=== PATIENT | male | born 1935 ===

== ENCOUNTER 2024-03-03 09:12 | Outpatient (CLI) | payer MEDICARE, SELFPAY | END 2024-03-03 09:13 | disposition home or self-care (01) | LOC: AMB 03-10 13:54 | PROVIDERS: Visit Provider Student in an Organized Health Care Education/Training Program | DX: M79.604 Pain in right leg (principal); R20.0 Anesthesia of skin | CPT/HCPCS: A0425; A0427 ==

== ENCOUNTER 2024-03-06 02:54 | Outpatient (CLI) | payer MEDICARE, SELFPAY | END 2024-03-06 02:55 | disposition home or self-care (01) | LOC: AMB 03-16 04:06 | PROVIDERS: Visit Provider Student in an Organized Health Care Education/Training Program | DX: M54.9 Dorsalgia, unspecified (principal) | CPT/HCPCS: A0425; A0427 ==

== ENCOUNTER 2025-02-27 12:21 | Emergency (ER) | payer MEDICARE, SELFPAY ==
--- OUTSIDE RECORDS SUMMARY | 2024-05-26 02:45 | XMS_ITS ---
Author Organization [employer] [facility] Address [address] [place] [address] Care Team Providers Care Hemstitching Machine Operator Name Role Phone Tiffanie Talbot Unavailable [phone] Results Component Value Reference Range Notes PET CT W/HEARTSEE Reviewed date: Interpretation: Performing Lab: Notes/Report: PET CT W/HEARTSEE 1 [id number] W/HEARTSEE [id number] CT W/HEARTSEE 3 [id number] REASON FOR VISIT PET CT Encounters Encounter Location Date [facility] [address] [facility] [address] [place] [address] 05/26/2024 Tiffanie Talbot Acute systolic (congestive) heart failure I50.21 Assessments Encounter Date Diagnosis (ICD Code) Assessment Notes Treatment Notes Treatment Clinical Notes Section Notes 05/26/2024 Acute systolic (congestive) hear t failure (ICD-10 - I50.21) Plan Of Treatment No Information Progress Notes * GENOVEVAKwame KEBEDE SDOB:[birth year] (89 yo M)Acc No.[id number]:05/26/2024 Patient:Kwame Krueger :?Tiffanie Talbot MDDOB:1935???Age:88 Y ???Sex:MaleDate:05/26/2024Phone:[phone]:[address], [address], [facility] Subjective: * Chief Complaints: * P ET CT Assessment: * Assessment: 1.?Acute systolic (congestive) heart failure - I50.21??? Plan: * Labs: * L ab: PET CT W/HEARTSEE (Collection Date & Time - 05/26/2024) ?ValueReference Range?PET CT W/HEARTSEE 1 [id number] * P ET CT W/HEARTSEE 2 [id number] * P ET CT W/HEARTSEE 3 [id number] * Procedure Codes: 9 3015 CARDIOVASCULAR STRESS [id number] RB82 [id number] INJECTION REGADENOSON 0.1 FV43654 MYOCRD IMG PET RST&STRS CT -PJ55006 AQMBF PET REST & RX STRESS -TC Billing Information: * Procedure Codes: 56522 CARDIOVASCULAR STRESS TEST. A9555 RB82 RUBIDIUM. J2785 INJECTION REGADENOSON 0.1 MG. 21679 MYOCRD IMG PET RST&STRS CT -[place]. 97311 AQMBF PET REST & RX STRESS -TC. * Electronic signature of Tiffanie Talbot on 02/28/2025 at 02:20 AM CSTSign off status: Pending * Provider: Joanie Talbot MD Date: 0 05/26/2024 Generated for Printing/Faxing/eTransmitting on:?02/28/2025 02:20 AM APPLIANCE TECHNICIAN
--- OUTSIDE RECORDS SUMMARY | 2024-05-26 02:45 | XMS_ITS ---
Author Organization [employer] [facility] Address [address] [facility] [address] [place] [address] Care Team Providers Care Revenue Settlements Administrator Name Role Phone Tiffanie Talbot Unavailable Results Component Value Reference Range Notes PET CT W/HEARTSEE Reviewed date: Interpretation: Performing Lab: Notes/Report: PET CT W/HEARTSEE 1 [id number] W/HEARTSEE [id number] CT W/HEARTSEE 3 [id number] REASON FOR VISIT PET CT Encounters Encounter Location Date Provider [facility] [address] [place] [address] 05/26/2024 Tiffanie Talbot Acute systolic (congestive) heart failure I50.21 Assessments Encounter Date Diagnosis (ICD Code) Assessment Notes Treatment Notes Treatment Clinical Notes Section Notes 05/26/2024 Acute systolic (congestive) hear t failure (ICD-10 - I50.21) Plan Of Treatment No Information Progress Notes * GENOVEVAKwame KEBEDE SDOB:[birth year] (89 yo M)Acc No.[id number]:05/26/2024 Patient:Kwame Krueger :?Tiffanie Talbot MDDOB:1935???Age:88 Y ???Sex:MaleDate:05/26/2024Phone:[phone]:[address], [facility] Subjective: * Chief Complaints: * P ET CT Assessment: * Assessment: 1.?Acute systolic (congestive) heart failure - I50.21??? Plan: * Labs: * L ab: PET CT W/HEARTSEE (Collection Date & Time - 05/26/2024) ?ValueReference Range?PET CT W/HEARTSEE 1 [id number] * P ET CT W/HEARTSEE 2 [id number] * P ET CT W/HEARTSEE 3 [id number] * Procedure Codes: 9 3015 CARDIOVASCULAR STRESS [id number] RB82 [id number] INJECTION REGADENOSON 0.1 WA26196 MYOCRD IMG PET RST&STRS CT -JP70019 AQMBF PET REST & RX STRESS -TC Billing Information: * Procedure Codes: 42335 CARDIOVASCULAR STRESS TEST. A9555 RB82 RUBIDIUM. J2785 INJECTION REGADENOSON 0.1 MG. 95955 MYOCRD IMG PET RST&STRS CT -[place]. [address] AQMBF PET REST & RX STRESS -TC. * Electronic signature of Tiffanie Talbot on 02/27/2025 at 12:25 PM CSTSign off status: Pending * Provider: Joanie Talbot MD Date: 0 05/26/2024 Generated for Printing/Faxing/eTransmitting on:?02/27/2025 12:25 PM REPACK ROOM WORKER
--- OUTSIDE RECORDS SUMMARY | 2024-05-27 03:00 | XMS_ITS ---
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 ; Heart failure, unspecified I50.9 ; Acute kidney failure, unspecified N17.9 and Chronic atrial fibrillation, unspecified I48.20 Assessments Encounter Date Diagnosis (ICD Code) Assessment Notes Treatment Notes Treatment Clinical Notes Section Notes 05/27/2024 Hypertensive heart disease with heart failure (ICD-10 - I11.0) 05/27/2024Heart failure, unspecified (ICD-10 - I50.9)5Acute kidney failure, unspecified (ICD-10 - N17.9)5Chronic atrial fibrillation, unspecified (ICD-10 - I48.20) Plan Of Treatment No Information Progress Notes * Kwame CARRILLO SDOB:[birth year] (89 yo M)Acc No.[id number]:05/27/2024 Patient:?Kwame Carrillo :?Provider MigrationDOB:1935???Age:88 Y ???Sex:MaleDate:05/27/2024Phone:[phone]:[address], [facility] Subjective: * Chief Complaints: * E MR-Galindo Assessment: * Assessment: 1.?Hypertensive heart disease with heart failure - I11.0???2.?Heart failure, unspecified - I50.9???3.?Acute kidney failure, unspecified - N17.9???4.?Chronic atrial fibrillation, unspecified - I48.20??? * Electronic signature of Provider Migration on 02/27/2025 at 12:25 PM CSTSign off status: Pending * Provider: May araujo Migration Date: 0 05/27/2024 Generated for Printing/Faxing/eTransmitting on:?02/27/2025 12:25 PM SHOT BAGGER
--- OUTSIDE RECORDS SUMMARY | 2024-05-27 03:00 | XMS_ITS ---
Author Organization [employer] [facility] Address [address] [facility] [address] [place] [address] Care Team Providers Care Insulation Foreman Name Role Phone Migration, Provider Unavailable Unavailable [...] Kwame CARRILLO SDOB:[birth year] (89 yo M)Acc No.[id number]:05/27/2024 Patient:?Kwame Carirllo :?Provider MigrationDOB:1935???Age:88 Y ???Sex:MaleDate:05/27/2024Phone:[phone]:[address], [facility] Subjective: * Chief Complaints: * E MR-Galindo Assessment: * Assessment: 1.?Hypertensive heart disease with heart failure - I11.0???2.?Heart failure, unspecified - I50.9???3.?Acute kidney failure, unspecified - N17.9???4.?Chronic atrial fibrillation, unspecified - I48.20??? * Electronic signature of Provider Migration on 02/28/2025 at 02:20 AM CSTSign off status: Pending * Provider: May araujo Migration Date: 0 05/27/2024 Generated for Printing/Faxing/eTransmitting on:?02/28/2025 02:20 AM ADMINISTRATIVE LIAISON
--- OUTSIDE RECORDS SUMMARY | 2024-06-03 02:56 | XMS_ITS ---
Author Organization [employer] [facility] Address [address] [facility] [address] [place] [address] Care Team Providers Care Baseball Scout Name Role Phone Migration, Provider Unavailable Unavailable REASON FOR VISIT TelEnc Encounters Encounter Location Date Provider Diagnosis Migrated_Facility 0 0 06/03/2024 Provider Migration Plan Of Treatment No Information Progress Notes * SILVAMIGUELKwame KEBEDE SDOB:[birth year] (89 yo M)Acc No.[id number]:06/03/2024 Patient:?Kwame OCAMPO :1935???Age:88 Y???Sex:MalePhone:[phone] Address:[address], [facility] [address] Subjective: * Chief Complaints: * T elEnc * * Date:?
--- OUTSIDE RECORDS SUMMARY | 2024-06-03 02:56 | XMS_ITS ---
Author Organization [employer] [facility] Address [address] [facility] [address] [place] [address] Care Team Providers Care Supervisor Melt House Name Role Phone Migration, Provider Unavailable Unavailable REASON FOR VISIT TelEnc Encounters Encounter Location Date Provider Diagnosis Migrated_Facility 0 0 06/03/2024 Provider Migration Plan Of Treatment No Information Progress Notes * SILVAMIGUELKwame KEBEDE SDOB:[birth year] (89 yo M)Acc No.[id number]:06/03/2024 Patient:?Kwame OCAMPO :1935???Age:88 Y???Sex:MalePhone:[phone] Address:[address], [facility] [address] Subjective: * Chief Complaints: * T elEnc * * Date:?
--- OUTSIDE RECORDS SUMMARY | 2024-06-03 04:42 | XMS_ITS ---
Author Organization [employer] [facility] Address [address] [facility] [address] [place] [address] Care Team Providers Care Wireless Team Member Name Role Phone Migration, Provider Unavailable Unavailable REASON FOR VISIT TelEnc Encounters Encounter Location Date Provider Diagnosis Migrated_Facility 0 0 06/03/2024 Provider Migration Plan Of Treatment No Information Progress Notes * SILVAMIGUELKwame KEBEDE SDOB:[birth year] (89 yo M)Acc No.[id number]:06/03/2024 Patient:?Kwame OCAMPO :1935???Age:88 Y???Sex:MalePhone:[phone] Address:[address], [facility] [address] Subjective: * Chief Complaints: * T elEnc * * Date:?
--- OUTSIDE RECORDS SUMMARY | 2024-06-03 04:42 | XMS_ITS ---
Author Organization [employer] [facility] Address [address] [facility] [address] [place] [address] Care Team Providers Care Laborer Marine Terminal Name Role Phone Migration, Provider Unavailable Unavailable REASON FOR VISIT TelEnc Encounters Encounter Location Date Provider Diagnosis Migrated_Facility 0 0 06/03/2024 Provider Migration Plan Of Treatment No Information Progress Notes * SILVAMIGUELKwame KEBEDE SDOB:[birth year] (89 yo M)Acc No.[id number]:06/03/2024 Patient:?Kwame OCAMPO :1935???Age:88 Y???Sex:MalePhone:[phone] Address:[address], [facility] [address] Subjective: * Chief Complaints: * T elEnc * * Date:?
--- OUTSIDE RECORDS SUMMARY | 2024-06-04 03:10 | XMS_ITS ---
Author Organization [employer] [facility] Address [address] [facility] [address] [place] [address] Care Team Providers Care Compass Operator Name Role Phone Sami Rodríguez Unavailable [phone] REASON FOR VISIT Established Patient Encounters Encounter Location Date Provider [facility] [address] [place] [address] 06/04/2024 Sami Rodríguez Plan Of Treatment No Information Progress Notes * Kwame OCAMPO SDOB:[birth year] (89 yo M)Acc No.[id number]:06/04/2024 Patient:?Kwame Ocampo :?Sami Anne, MDDOB:1935???Age:88 Y???Sex:MaleDate:06/04/2024Phone:[phone]:[address], [facility] Subjective: * Chief Complaints: * E stablished Patient * Electronic signature of Sami Rodríguez on 02/28/2025 at 02:18 AM CSTSign off status: Pending * Provider: Danica Rodríguez MD Date: 0 06/04/2024 Generated for Printing/Faxing/eTransmitting on:?02/28/2025 02:18 AM INSTRUCTOR BRIDGE
--- OUTSIDE RECORDS SUMMARY | 2024-06-04 03:10 | XMS_ITS ---
Author Organization [employer] [facility] Address [address] [facility] [address] [place] [address] Care Team Providers Care Supervisor Melt House Name Role Phone Sami Rodríguez Unavailable REASON FOR VISIT Established Patient Encounters Encounter [facility] Date [facility] [address] [facility] [address] [place] [address] 06/04/2024 Sami Rodríguez Plan Of Treatment No Information Progress Notes * Kwame OCAMPO SDOB:[birth year] (89 yo M)Acc No.[id number]:06/04/2024 Patient:?Kwame Ocampo :?Sami Anne, MDDOB:1935???Age:88 Y???Sex:MaleDate:06/04/2024Phone:[phone]:[address], [facility] Subjective: * Chief Complaints: * E stablished Patient * Electronic signature of Sami Rodríguez on 02/27/2025 at 12:23 PM CSTSign off status: Pending * Provider: Danica Rodríguez MD Date: 0 06/04/2024 Generated for Printing/Faxing/eTransmitting on:?02/27/2025 12:23 PM PELLET PREPARATION OPERATOR
--- OUTSIDE RECORDS SUMMARY | 2024-06-04 04:45 | XMS_ITS ---
Author Organization [employer] [facility] Address [address] [facility] [address] [place] [address] Care Team Providers Care Electrical Appliance Repairer Name Role Phone Michelle Fernández [phone] REASON FOR VISIT Established Patient Encounters Encounter Location Date Provider Diagnosis [facility]- [address] [place] [address] 06/04/2024 Michelle Fernández Plan Of Treatment No Information Progress Notes * Kwame OCAMPO SDOB:[birth year] (89 yo M)Acc No.[id number]:06/04/2024 Patient:Kwame Krueger :?Michelle Fernández NPDOB:1935???Age:88 Y ???Sex:MaleDate:06/04/2024Phone:[phone]:[address], [facility] Subjective: * Chief Complaints: * E stablished Patient * Electronic signature of Michelle Fernández on 02/28/2025 at 02:20 AM CSTSign off status: Pending * Provider: Mata Fernández NP Date: 0 06/04/2024 Generated for Printing/Faxing/eTransmitting on:?02/28/2025 02:20 AM INFORMATION TECHNOLOGY TECHNICIAN
--- OUTSIDE RECORDS SUMMARY | 2024-06-04 04:45 | XMS_ITS ---
Author Organization [employer] [facility] Address [address] [facility] [address] [place] [address] Care Team Providers Care Char Filter Tank Tender Head Name Role Phone Michelle Fernández [phone] REASON FOR VISIT Established Patient Encounters Encounter Location Date Provider Diagnosis [facility]- [address] [place] [address] 06/04/2024 Michelle Fernández Plan Of Treatment No Information Progress Notes * Kwame OCAMPO SDOB:[birth year] (89 yo M)Acc No.[id number]:06/04/2024 Patient:Kwame Krueger :?Michelle Fernández NPDOB:1935???Age:88 Y ???Sex:MaleDate:06/04/2024Phone:[phone]:[address], [facility] Subjective: * Chief Complaints: * E stablished Patient * Electronic signature of Michelle Fernández on 02/27/2025 at 12:25 PM CSTSign off status: Pending * Provider: Mata Fernández NP Date: 0 06/04/2024 Generated for Printing/Faxing/eTransmitting on:?02/27/2025 12:25 PM PIPE MACHINE OPERATOR
--- OUTSIDE RECORDS SUMMARY | 2024-06-04 04:45 | XMS_ITS ---
Author Organization [employer] [facility] Address [address] [facility] [address] [place] [address] Care Team Providers Care Electric Wirer Name Role Phone Michelle Fernández [phone] Results Component Value Reference Range Notes ELECTROCARDIOGRAM/ECG Reviewed date: Interpretation: Performing Lab: Notes/Report: ELECTROCARDIOGRAM/ECG 1 [id number] Dipyrid PET/CT Reviewed date:05/26/2024 12:00:00 AM Interpretation: Performing Lab: Notes/Report: EKG Reviewed date:06/04/2024 12:00:00 AM Interpretation: Performing Lab: Notes/Report: REASON FOR VISIT Hospital Follow Up Vital Signs Blood pressure systolic 92 mm Hg 06/05/19 25 Blood pressure diastolic 62 mm Hg 025 Heart Rate 97 /min 06/04/2024 Height 66.00 in 06/04/2024 Weight 153.00 lbs 06/04/2024 BMI 24.69 kg/m2 06/04/2024 BMI Percentile 24.69 % 06/04/2024 Height-cm 167.64 cm 06/04/2024 Weight-kg 69.40 kg 06/04/2024 Encounters Encounter Location Date Provider Diagnosis [facility] [address] [facility] [facility] [address] [place] [address] 06/04/2024 Michelle Fernández Hyperlipidemia, unspecified E78.5 ; Essential (primary) hypertension I10 ; Unspecified atrial fibrillation I48.91 ; Unspecified systolic (congestive) heart failure I50.20 ; Other hypotension I95.89 ; intermediate (current) use of anticoagulants Z79.01 and Body mass index (BMI) 24.0-24.9, adult Z68.24 Assessments Encounter Date Diagnosis (ICD Code) Assessment Notes Treatment Notes Treatment Clinical Notes Section Notes 06/04/2024 Hyperlipidemia, unspecified (ICD -10 - E78.5) 06/04/2024Essential (primary) hypertension (ICD-10 - I10)06/04/2024Unspecified atrial fibrillation (ICD-10 - I48.91)06/04/2024Unspecified systolic (congestive) heart failure (ICD-10 - I50.20)06/04/2024Other hypotension (ICD-10 - I95.89) 06/04/2024Long term (current) use of anticoagulants (ICD-10 - Z79.01)06/04/2024 Body mass index (BMI) 24.0-24.9, adult (ICD-10 - Z68.24) Plan Of Treatment No Information Progress Notes * LORENA Kwame SDOB:[birth year] (89 yo M)Acc No.[id number]:06/04/2024 Patient:?Kwame Ocampo :?Michelle Fernández NPDOB:1935???Age:88 Y ???Sex:MaleDate:06/04/2024Phone:[phone]:[address], [facility] Subjective: * Chief Complaints: * H ospital Follow Up * ROS: ???ROS System : :Hematuria and Nocturia. -Negative. Objective: * Vitals: H t: 66.00 in, Wt: 153.00 lbs, HR: 97 /min, BP: 92/62 mm Hg, BMI: 24.69 Index, BMI %: 24.69 %, Wt-k.40 kg, Ht-cm: 167.64 cm. Assessment: * Assessment: 1.?Hyperlipidemia, unspecified - E78.5???Specify :Src Diagnosis Name: Dyslipidemia???2.?Essential (primary) hypertension - I10???Specify :Src Diagnosis Name: Essential hypertension???3.?Unspecified atrial fibrillation - I48.91???Specify :Src Diagnosis Name: Atrial fibrillation, unspecified type ???4.?Unspecified systolic (congestive) heart failure - I50.20???Specify :Src Diagnosis Name: HFrEF (heart failure with reduced ejection fraction)???5.?Other hypotension - I95.89???6.?rat exterminator (current) use of anticoagulants - Z79.01???7.?Body mass index (BMI) 24.0-24.9, adult - Z68.24???Specify :Src Diagnosis Name: Body mass index [BMI] 24.0-24.9, adult??? Plan: * Imaging: * I maging: EKG (Performed Date - 06/04/2024) * Value: ATRIAL FIBRILLATION W ITH ABERRANT CONDUCTION OR VENTRICULAR PREMATURE COMPLEXES.;Status: completed; * ?Imaging: Dipyrid PET/CT (Performed Date - 05/26/2024)* * Value: No evidence of ischem ia seen. Perfusion defect seen in entire inferior wall paradoxially improves with stress and may represents diaphragmatic attenuation artifact. LVEF 22%, severely reduced global systolic function. No significant TID.;Status: completed; * * Labs: * L ab: ELECTROCARDIOGRAM/ECG (Collection Date & Time - 06/04/2024) ?ValueReference Range?ELECTROCARDIOGRAM/ECG 1 [id number] * Procedure Codes: 9 3000 -ELECTROCARDIOGRAM, COMPLETE Billing Information: * Procedure Codes: 99954 -ELECTROCARDIOGRAM, COMPLETE. * Electronic signature of Michelle Fernández on 02/28/2025 at 02:19 AM CSTSign off status: Pending * Provider: Mata Fernández NP Date: 0 06/04/2024 Generated for Printing/Faxing/eTransmitting on:?02/28/2025 02:19 AM BAND HEAD SAW OPERATOR
--- OUTSIDE RECORDS SUMMARY | 2024-06-04 04:45 | XMS_ITS ---
Author Organization [employer] [facility] Address [address] [facility] [address] [place] [address] Care Team Providers Care Vegetable Picker Name Role Phone Michelle Fernández [phone] Results Component Value Reference Range Notes ELECTROCARDIOGRAM/ECG Reviewed date: Interpretation: Performing Lab: Notes/Report: ELECTROCARDIOGRAM/ECG 1 [id number] Dipyrid PET/CT Reviewed date:05/26/2024 12:00:00 AM Interpretation: [...] 06/04/2024 Encounters Encounter Location Date Provider Diagnosis [facility] [address] [place] [address] 06/04/2024 Michelle Fernández Hyperlipidemia, unspecified E78.5 ; Essential (primary) hypertension I10 ; Unspecified atrial fibrillation I48.91 ; Unspecified systolic (congestive) heart failure I50.20 ; Other hypotension I95.89 ; MCC (current) use of anticoagulants Z79.01 and Body [...] LORENA Kwame SDOB:[birth year] (89 yo M)Acc No.[id number]:06/04/2024 Patient:?Kwame Ocampo :?Michelle Fernández NPDOB:1935???Age:88 Y ???Sex:MaleDate:06/04/2024Phone:[phone]:[address], [facility] Subjective: * Chief Complaints: * H ospital [...] failure with reduced ejection fraction)???5.?Other hypotension - I95.89???6.?buttermilk drier operator (current) use of anticoagulants - Z79.01???7.?Body mass [...] & Time - 06/04/2024) ?ValueReference Range?ELECTROCARDIOGRAM/ECG 1 [id number] * Procedure Codes: 9 3000 -ELECTROCARDIOGRAM, COMPLETE Billing Information: * Procedure Codes: 12016 -ELECTROCARDIOGRAM, COMPLETE. * Electronic signature of Michelle Fernández on 02/27/2025 at 12:24 PM CSTSign off status: Pending * Provider: Mata Fernández NP Date: 0 06/04/2024 Generated for Printing/Faxing/eTransmitting on:?02/27/2025 12:24 PM CHEMIST BIOLOGICAL
--- OUTSIDE RECORDS SUMMARY | 2024-06-08 02:45 | XMS_ITS ---
Author Organization [employer] [facility] Address [address] [facility] [address] [place] [address] Care Team Providers Care Deli Bakery Clerk Name Role Phone Pradeep Michelle Song [phone] REASON FOR VISIT Established Patient Vital Signs Blood pressure systolic 112 mm Hg 06/09/19 25 Blood pressure diastolic 52 mm Hg 025 Heart Rate 74 /min 06/08/2024 Height 68.00 in 06/08/2024 Weight 156.00 lbs 06/08/2024 BMI 23.72 kg/m2 06/08/2024 Oximetry 100 % 06/08/2024 BMI Percentile 23.72 % 06/08/2024 Height-cm 172.72 cm 06/08/2024 Weight-kg 70.76 kg 06/08/2024 Encounters Encounter Location Date Provider Diagnosis [facility] [address] [facility] [address] [place] [address] 06/08/2024 Michelle Fernández Hyperlipidemia, unspecified E78.5 ; Essential (primary) hypertension I10 ; Unspecified atrial fibrillation I48.91 ; Unspecified systolic (congestive) heart failure I50.20 ; Acute systolic (congestive) heart failure I50.21 ; Other hypotension I95.89 ; snf (current) use of anticoagulants Z79.01 and Body mass index (BMI) 23.0-23.9, adult Z68.23 Assessments Encounter Date Diagnosis (ICD Code) Assessment Notes Treatment Notes Treatment Clinical Notes Section Notes 06/08/2024 Hyperlipidemia, unspecified (ICD -10 - E78.5) 06/08/2024Essential (primary) hypertension (ICD-10 - I10)06/08/2024Unspecified atrial fibrillation (ICD-10 - I48.91)06/08/2024Unspecified systolic (congestive) heart failure (ICD-10 - I50.20)5Acute systolic (congestive) heart failure (ICD-10 - I50.21)06/08/2024Other hypotension (ICD-10 - I95.89)06/08/2024 horticultural farmer (current) use of anticoagulants (ICD-10 - Z79.01)06/08/2024ody mass index (BMI) 23.0-23.9, adult (ICD-10 - Z68.23) Plan Of Treatment No Information Progress Notes * Kwame OCAMPO SDOB:[birth year] (89 yo M)Acc No.[id number]:06/08/2024 Patient:?Kwame Ocampo :?Michelle Fernández NPDOB:1935???Age:88 Y ???Sex:MaleDate:06/08/2024Phone:[phone]:[address], [address], [facility] Subjective: * Chief Complaints: * E stablished Patient * ROS: ???ROS System : :Hematuria and Nocturia. -Negative. Objective: * Vitals: H t: 68.00 in, Wt: 156.00 lbs, HR: 74 /min, Oxygen sat %: 100 %, BP: 112/52 mm Hg, BMI: 23.72 Index, BMI %: 23.72 %, Wt-k.76 kg, Ht-cm: 172.72 cm. Assessment: * Assessment: 1.?Hyperlipidemia, unspecified - E78.5???Specify :Src Diagnosis Name: Dyslipidemia???2.?Essential (primary) hypertension - I10???Specify :Src Diagnosis Name: Essential hypertension???3.?Unspecified atrial fibrillation - I48.91???Specify :Src Diagnosis Name: Atrial fibrillation, unspecified type ???4.?Unspecified systolic (congestive) heart failure - I50.20???Specify :Src Diagnosis Name: HFrEF (heart failure with reduced ejection fraction)???5.?Acute systolic (congestive) heart failure - I50.21???6. Other hypotension - I95.89???7.?horticultural farmer (current) use of anticoagulants - Z79.01???8.?Body mass index (BMI) 23.0-23.9, adult - Z68.23???Specify :Src Diagnosis Name: Body mass index [BMI] 23.0-23.9, adult??? * Electronic signature of Michelle Fernández on 02/27/2025 at 12:24 PM CSTSign off status: Pending * Provider: Mata Fernández NP Date: 0 06/08/2024 Generated for Printing/Faxing/eTransmitting on:?02/27/2025 12:24 PM GROUND SERVICES INSTRUCTOR
--- OUTSIDE RECORDS SUMMARY | 2024-06-08 02:45 | XMS_ITS ---
Author Organization [employer] [facility] Address [address] [facility] [address] [place] [address] Care Team Providers Care Oyster Buyer Name Role Phone Pradeep Michelle Song [phone] REASON FOR VISIT Established Patient Vital Signs Blood pressure systolic 112 mm Hg 06/09/19 25 Blood pressure diastolic 52 mm Hg 025 Heart Rate 74 /min 06/08/2024 Height 68.00 in 06/08/2024 Weight 156.00 lbs 06/08/2024 BMI 23.72 kg/m2 06/08/2024 Oximetry 100 % 06/08/2024 BMI Percentile 23.72 % 06/08/2024 Height-cm 172.72 cm 06/08/2024 Weight-kg 70.76 kg 06/08/2024 Encounters Encounter Location Date Provider Diagnosis [facility] [address] [place] [address] 06/08/2024 Michelle Fernández Hyperlipidemia, unspecified E78.5 ; [...] (ICD-10 - I50.21)06/08/2024Other hypotension (ICD-10 - I95.89)06/08/2024 laborer marine terminal (current) use of anticoagulants (ICD-10 - Z79.01)06/08/2024ody mass index (BMI) 23.0-23.9, adult (ICD-10 - Z68.23) Plan Of Treatment No Information Progress Notes * Kwame OCAMPO SDOB:[birth year] (89 yo M)Acc No.[id number]:06/08/2024 Patient:?Kwame Ocampo :?Michelle Fernádnez NPDOB:1935???Age:88 Y ???Sex:MaleDate:06/08/2024Phone:[phone]:[address], [address], [facility] Subjective: * Chief Complaints: * E stablished [...] heart failure - I50.21???6. Other hypotension - I95.89???7.?laborer marine terminal (current) use of anticoagulants - Z79.01???8.?Body mass index (BMI) 23.0-23.9, adult - Z68.23???Specify :Src Diagnosis Name: Body mass index [BMI] 23.0-23.9, adult??? * Electronic signature of Michelle Fernández on 02/28/2025 at 02:19 AM CSTSign off status: Pending * Provider: Mata Fernández NP Date: 0 06/08/2024 Generated for Printing/Faxing/eTransmitting on:?02/28/2025 02:19 AM STOCK BUYER
--- OUTSIDE RECORDS SUMMARY | 2024-09-05 03:00 | XMS_ITS ---
Author Organization [employer] [facility] Address [address] [facility] [address] [place] [address] Care Team Providers Care Razor Grinder Name Role Phone Migration, Provider Unavailable Unavailable REASON FOR VISIT EMR-[facility] Encounters Encounter Location Date Provider Diagnosis Migrated_Facility 0 0 09/05/2024 Provider Migration Plan Of Treatment Medication Medication Name Sig Start Date Stop Date Notes Potassium Chloride ER 10 MEQ Tablet Extended Release take 1 tablet by oral route every day with food Oral 05/22/2024 06/04/2024 Metoprolol Succinate ER 25 MG Tablet Extended Release 24 Hourtake 1 tablet by oral route every day Oral/05/2024Entresto 24-26 MG Tablettake 1 tablet by oral route 2 times every day OralJardiance 10 MG Tablettake 1 tablet by oral route every day in the morning Oral05/22/2024 06/04/2024biraterone 250 mg tablet 250 mg TABLETtake 4 tablet by oral route every day with water on an empty stomach at least 1 hour before or 2 hours afterfood ORAL/05/2024*Reorder from [employer] for eRx and Interaction Alerts*Eliquis 5 MG Tablettake 1 tablet by oral route 2 times every day Oral Spironolactone 25 MG Tablettake 1 tablet by oral route every day Oral/05/2024Midodrine HCl 2.5 MG Tablettake 1 tablet by oral route 2 times every day Oral06/04/2024Furosemide 40 MG Tablettake 1 tablet by oral route every day Oral5006/04/2024 Progress Notes * Kwame OCAMPO SDOB:[birth year] (89 yo M)Acc No.[id number]:09/05/2024 Patient:Kwame RODRIGUEZ :1935???Age:88 Y???Sex:MalePhone:[phone] Address:[address] [place] [address], [address], [place], [address] * Refills Stop Furosemide Tablet, 40 MG, Oral, 0, take 1 tablet by oral route every day Stop Midodrine HCl Tablet, 2.5 MG, Oral, 0, take 1 tablet by oral route 2 times every day Stop Midodrine HCl Tablet, 2.5 MG, Oral, 180, take 1 tablet by oral route 2 times every day as needed for SBP >90mmhg Stop Spironolactone Tablet, 25 MG, Oral, 0, take 1 tablet by oral route every day Stop Eliquis Tablet, 5 MG, Oral, 0, take 1 tablet by oral route 2 times every day Stop Metoprolol Succinate ER Tablet Extended Release 24 Hour, 25 MG, Oral, 0, take 1 tablet by oralroute every day Stop Potassium Chloride ER Tablet Extended Release, 10 MEQ, Oral, 0, take 1 tablet by oral route every day with food Stop Jardiance Tablet, 10 MG, Oral, 0, take 1 tablet by oral route every day in the morning Stop Entresto Tablet, 24-26 MG, Oral, 0, take 1 tablet by oral route 2 times every day Stop Entresto Tablet, 24-26 MG, Oral, 180, take 1 tablet by oral route 2 times every day Stop abiraterone 250 mg tablet TABLET, 250 mg, ORAL, 0, take 4 tablet by oral route every day with water on an empty stomach at least 1 hour before or 2 hours afterfood Subjective: * Chief Complaints: * E MR-[facility] * * Date:?
--- OUTSIDE RECORDS SUMMARY | 2024-09-05 03:00 | XMS_ITS ---
Author Organization [employer] [facility] Address [address] [facility] [address] [place] [address] Care Team Providers Care Almond Blancher Hand Name Role Phone Migration, Provider Unavailable Unavailable [...] before or 2 hours afterfood ORAL/05/2024*Reorder from [employer] for eRx and Interaction Alerts*Eliquis 5 MG [...] Kwame OCAMPO SDOB:[birth year] (89 yo M)Acc No.[id number]:09/05/2024 Patient:Kwame RODRIGUEZ :1935???Age:88 Y???Sex:MalePhone:[phone] Address:[address] [place] [address], [address], [place], [address] * Refills Stop Furosemide Tablet, 40 MG, [...]
--- OUTSIDE RECORDS SUMMARY | 2024-09-06 03:00 | XMS_ITS ---
Author Organization [employer] [facility] Address [address] [facility] [address] [place] [address] Care Team Providers Care Coil Inspector Name Role Phone Migration, Provider Unavailable Unavailable Allergies No Known Allergies REASON FOR VISIT EMR-[facility] Medications Medication SIG (Take, Route, Frequency, Duration) Notes Start Date End Date Status Eliquis 5 MG Tablet take 1 tablet by oral route 2 times every day Oral 5Activeabiraterone 250 mg tablet 250 mg TABLETtake 2 tablet by oral route every day with water on an empty stomach at least 1 hour before or 2 hours afterfood ORAL*Reorder from [employer] for eRx and Interaction Alerts*06/04/2024 ActiveMidodrine HCl 2.5 MG Tablettake 1 tablet by oral route 2 times every day as needed for SBP >90mmhg Oral5ActiveOTC Supplements Oralonce a day Oral*Reorder from [place] [employer] for eRx and Interaction Alerts*5Active Metoprolol Succinate ER 25 MG Tablet Extended Release 24 Hourtake 1/2 tablet by oral route every am if SBP >100mmhg Oral5ActiveprednisoLONE 5 MG Tablet take 1 tablet by oral route every day with food Oral5Active Spironolactone 25 MG Tablettake 1/2 tablet by oral route every day Oral 5ActiveJardiance 10 MG Tablettake 1 tablet by oral route every day in the morning Oral5ActiveFurosemide 20 MG Tablettake 1 tablet by oral route every other day Oral5ActiveEntresto 24-26 MG Tablettake 1/2 tablet by oral route 2 times every day Oral5Active Social History Social History Additional DetailsCategorySocial InfoOptionsDetailsMigrated Social History Migrated Social HistoryHave you used tobacco: R,Tobacco use status: former, cigarette,Do you drink alcohol: N,Do you drink/consume caffeine: Y,Caffeine Type: coffee,Caffeine per day: 1 cup,Exercise frequency: never,Diet History: none Encounters Encounter Location Date Provider Diagnosis Migrated_Facility 0 0 09/06/2024 Provider Migration Plan Of Treatment No Information Progress Notes * Kwame CARRILLO SDOB:[birth year] (89 yo M)Acc No.[id number]:09/06/2024 Patient:?Kwame CARRILLO S :1935???Age:88 Y???Sex:MalePhone:[phone] Address:[address] [place] [address] Subjective: * Chief Complaints: * E MR-Galindo * Medical History: Disease : Dyslipidemia Disease : Cancer Disease : Acute systolic HF 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 * Family History: F ather: Arrhythmias,Cardiovascular disease. M other: Arrhythmias,Cardiovascular disease.? * Social History: ???Migrated Social History:?Migrated Social History: Have you used tobacco: R,Tobaccouse status: former, cigarette,Do you drink alcohol: N,Do you drink/consume caffeine: Y,Caffeine Type: coffee,Caffeine per day: 1 cup,Exercise frequency: never,Diet History: none. ??? * Medications: T akingFurosemide 20 MG Tablet take 1 tablet by oral route every other day Oral Entresto 24-26 MG Tablet take 1/2 tablet by oral route 2 times every day Oral Jardiance 10 MG Tablet take 1 tablet by oral route every day in the morning Oral OTC Supplements Oral once a day Oral , Notes to Pharmacist: *Reorder from [employer] for eRx and Interaction Alerts*abiraterone 250 mg tablet 250 mg TABLET take 2 tablet by oral route every day with water on an empty stomach at least 1 hour before or 2 hours afterfood ORAL , Notes to Pharmacist: *Reorder from [facility] for eRx and Interaction Alerts*Metoprolol Succinate ER 25 MG Tablet Extended Release 24 Hour take 1/2 tablet by oral route every am if SBP >100mmhg Oral prednisoLONE 5 MG Tablet take 1 tablet by oral route every day with food Oral Spironolactone 25 MG Tablet take 1/2 tablet by oral route every day Oral Midodrine HCl 2.5 MG Tablet take 1 tablet by oral route 2 times every day as needed for SBP >90mmhg Oral Eliquis 5 MG Tablet take 1 tablet by oral route 2 times every day Oral Taking Furosemide 20 MG Tablet take 1 tablet by oral route every other day Oral Taking Entresto 24-26 MG Tablet take 1/2 tablet by oral route 2 times every day Oral Taking Jardiance 10 MG Tablet take 1 tablet by oral route every day in the morning Oral Taking OTC Supplements Oral once a day Oral , Notes to Pharmacist: *Reorder from [facility] for eRx and Interaction Alerts*Taking abiraterone 250 mg tablet 250 mg TABLET take 2 tablet by oral route every day with water on an empty stomach at least 1 hour before or 2 hours afterfood ORAL , Notes to Pharmacist: *Reorder from [facility] for eRx and Interaction Alerts*Taking Metoprolol Succinate ER 25 MG Tablet Extended Release 24 Hour take 1/2 tablet by oral route every am if SBP >100mmhg Oral Taking prednisoLONE 5 MG Tablet take 1 tablet by oral route every day with food Oral Taking Spironolactone 25 MG Tablet take 1/2 tablet by oral route every day Oral Taking Midodrine HCl 2.5 MG Tablet take 1 tablet by oral route 2 times every day as needed for SBP >90mmhg Oral Taking Eliquis 5 MG Tablet take 1 tablet by oral route 2 times every day Oral * Allergies: N .K.D.A. * * Date:?
--- OUTSIDE RECORDS SUMMARY | 2024-09-06 03:00 | XMS_ITS ---
Author Organization [employer] [facility] Address [address] [facility] [address] [place] [address] Care Team Providers Care Physical Therapy Professor Name Role Phone Migration, Provider Unavailable Unavailable Allergies No Known Allergies REASON FOR VISIT [facility] Medications Medication SIG (Take, Route, Frequency, Duration) Notes Start Date End Date Status Eliquis 5 MG Tablet take 1 tablet by oral route 2 times every day Oral 5Activeabiraterone 250 mg tablet 250 mg TABLETtake 2 tablet by oral route every day with water on an empty stomach at least 1 hour before or 2 hours afterfood ORAL*Reorder from [facility] for eRx and Interaction Alerts*06/04/2024 ActiveMidodrine HCl 2.5 MG Tablettake 1 tablet by oral route 2 times every day as needed for SBP >90mmhg Oral5ActiveOTC Supplements Oralonce a day Oral*Reorder from [facility] for eRx and Interaction Alerts*5Active Metoprolol Succinate [...] Kwame CARRILLO SDOB:[birth year] (89 yo M)Acc No.[id number]:09/06/2024 Patient:?Kwame CARRILLO S :1935???Age:88 Y???Sex:MalePhone:[phone] Address:[address] [place] [address] Subjective: * Chief Complaints: * E MR-Galindo [...] Oral , Notes to Pharmacist: *Reorder from [facility] for eRx and Interaction Alerts*abiraterone 250 mg tablet 250 mg TABLET take 2 tablet by oral route every day with water on an empty stomach at least 1 hour before or 2 hours afterfood ORAL , Notes to Pharmacist: *Reorder from [facility] for eRx and Interaction Alerts*Metoprolol Succinate [...] Oral , Notes to Pharmacist: *Reorder from [facility] for eRx and Interaction Alerts*Taking abiraterone 250 mg tablet 250 mg TABLET take 2 tablet by oral route every day with water on an empty stomach at least 1 hour before or 2 hours afterfood ORAL , Notes to Pharmacist: *Reorder from [facility] for eRx and Interaction Alerts*Taking Metoprolol [...]
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
--- OUTSIDE RECORDS SUMMARY | 2025-02-18 10:15 | XMS_ITS | Encounter Summary ---
Author Organization [facility] Address [address] [place] [address] Care Team Providers Care Binder Folder Operator Name Role Phone Amrik Carolyn Lawson PA-C Unavailable BobChristiano espinoza MD Unavailable [phone] Hannah RosaC Unavailable [phone] Rupert Thorpe MD Unavailable Nikita Saini MD Unavailable [phone] Pepe SierraC Unavailable [phone] Cookie Shay RN Unavailable Unavailable BobChristiano espinoza MD Unavailable [phone] Ruben Marcano DO Primary Care Provider [phone] Encounter Details DateTypeDepartmentCare Team (Latest Contact Info)Akkkxpeplyv64/18/2025 10:[address] 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, initial encounter; Acute deep vein thrombosis (DVT) of calf muscle vein of left lower extremity (H) Social History Tobacco UseTypesPacks/DayYears UsedDateSmoking Tobacco: FormerSmokeless Tobacco: Never Comments:quit age 28 Alcohol UseStandard Drinks/WeekCommentsNot Currently0 (1 standard drink = 0.6 oz pure alcohol)stopped ETOH 2014PHQ-2AnswerDate RecordedPHQ-2 Eajld371 Adolescent EducationAnswerDate RecordedGetting School Help NeededNot on [...] in an abandoned building, in an overnight chcf, or couch-surfing.)Yes03/17/2024re you worried about losing your [...] ex-partner?Yes03/08/2024Sex and Gender InformationValueDate RecordedSex Assigned at WksfcQjsb85/20/2025 10:09 AM CSTLegal PsoQxvh35/04/2012 4:01 AM CSTGender MoixulsxIujn55/20/2025 10:08 AM CSTSexual YfbqnjifoxfJgkfbfqk01/20/2025 10:08 AM CSTOccupationIndustry Job Start DateJob End DateEncryption communication telephoneNot on fileNot on fileNot on filedocumented as of this encounter Plan of Treatment DateTypeDepartmentCare Team (Latest Contact Info)Wjkswjentof56/27/2025 2:25 PM CSTOffice Visit [facility] [id number] [place] [phone] Miko Dale PA-C [address] [place] [address] [address] [place] [address] Avulsion of skin of forearm, initial encounter (Primary Dx); Right elbow pain03/01/2025 2:[address] [facility] [address] [place] [phone] [place] [address] [place] [address] 04/08/2025 10:[address] [facility] [address] [place] [phone] 04/09/2025 11:00 AM CSTOncology Visit [address] [place] [address] [facility] [place] [address] Christiano Rojas MD [address] [address] 04/09/2025 12:30 PM CSTAllied Health/Nurse Visit [address] [place] 200 [facility] [place] [phone] Christiano Rojas MD 420 [facility] [address] [place] [address] 04/20/2025 9:20 AM CSTOffice Visit [facility] [address] [facility] 140 [place] [phone] Pepe Sierar PA-C [address] [place] [address] documented as of this encounter Goals GoalPatient [...] not send urgent or symptomatic messages through [employer]. I will contact scheduling to arrange or make changes in my appointments. 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, initial encounter Acute deep vein thrombosis (DVT) of calf muscle vein of left lower extremity (H) TESTOSTERONE SXDVONogolxv20/18/2025 10:04 AM [facility] Prostate cancer (H) 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, initial encounter Acute deep vein thrombosis (DVT) of calf muscle vein of left lower extremity (H) PSA QBBBZDWKUAWjjyeeq87/18/2025 10:04 AM [facility] Prostate cancer (H) 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, initial encounter Acute deep vein thrombosis (DVT) of calf muscle vein of left lower extremity (H) GCJMBCYDZVNmftjpl53/18/2025 10:04 AM [facility] Prostate cancer (H) 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, initial encounter D DIMER AKNIAULFFIIKEhdepoe39/18/2025 10:04 AM [facility] Prostate cancer (H) 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, initial encounter Acute deep vein thrombosis (DVT) of calf muscle vein of left lower extremity (H) COMPREHENSIVE METABOLIC PKPUALgpizfo24/18/2025 10:04 AM [facility] Prostate cancer (H) 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, initial encounter Acute deep vein thrombosis (DVT) of calf muscle vein of left lower extremity (H) documented in this encounter Results * (ABNORMAL) CBC with platelets and differential (02/18/2025 10:04 AM [facility]) ComponentValueRef RangeTest MethodAnalysis TimePerformed AtPathologist SignatureWBC Count9.304.00 - 11.00 10e3/uL02/18/2025 10:13 AM CSTLV LABORATORY RBC Count4.37(L)4.40 - 5.90 10e6/uL02/18/2025 10:13 AM CSTLV LABORATORY Lykuvrqjyf35.413.3 - 17.7 g/dL02/18/2025 10:13 AM CSTLV LABORATORYHematocrit 43.140.0 - 53.0 %02/18/2025 10:13 AM CSTLV DYAWQGXUWUNXW18.678.0 - 100.0 fL 02/18/2025 10:13 AM CSTLV WYMDCUXXFCGPA24.026.5 - 33.0 pg02/18/2025 10:13 AM CSTLV NMALNWYFJGGPYI25.431.5 - 36.5 g/dL02/18/2025 10:13 AM [facility]ST[facility] LABORATORY RDW13.810.0 - 15.0 %02/18/2025 10:13 AM CSTLV LABORATORYPlatelet Lycsw400(L) 150 - 450 10e3/uL02/18/2025 10:13 AM [facility]STLV LABORATORY% Hzcfrzqiwwc12.3% 02/18/2025 10:13 AM [facility]ST[facility] LABORATORY% Qmffxqzxdqd86.6%02/18/2025 10:13 AM [facility] LV LABORATORY% Ixiwnlsld39.5%02/18/2025 10:13 AM CSTLV LABORATORY% Eosinophils 2.0%02/18/2025 10:13 AM CSTLV LABORATORY% Basophils0.4%02/18/2025 10:13 AM [facility] LV LABORATORY% Immature Granulocytes0.2%02/18/2025 10:13 AM CSTLV [...] TimeReceived TimeBloodBLOOD SPECIMEN / Unknown Venipuncture / Zsaicpo3202/18/2025 10:04 AM CST02/18/2025 10:04 AM [facility] Narrative Authorizing ProviderResult TypeResult StatusGautam Ubaldo Rojas MDLAB - BLOOD ORDERABLESFinal ResultPerforming OrganizationAddressCity/State/ZIP CodePhone Number LABORATORY [facility] [address] [facility] (no room number, 1st floor of clinic) [place] [address], [place] * (ABNORMAL) D dimer quantitative (02/18/2025 10:04 AM [facility])ComponentValueRef RangeTest MethodAnalysis TimePerformed AtPathologist SignatureD-Dimer Quantitative0.82(H)0.00 - 0.50 ug/mL FEU104/21/2024 1:32 PM CSTOX LABORATORY Specimen (Source)Anatomical Location / LateralityCollection Method / Volume Collection TimeReceived TimeBloodBLOOD SPECIMEN / UnknownVenipuncture / Uukbzcx6302/18/2025 10:04 AM CST02/18/2025 10:04 AM [facility] Narrative OX LABORATORY - 02/18/2025 1:32 PM [facility] This D-dimer assay is intended for use [...] pulmonary embolism: The ADJUST-PE Study. JOSE ARMANDO 2014;311:5070-5661.; HJ Kevin et al. Diagnostic accuracy of conventional or age adjusted D-dimer cutoff values in older patients with suspected venous thromboembolism. Systemic review and meta- analysis. BMJ 2013:346:f2492. Authorizing ProviderResult TypeResult StatusGautam Ubaldo Rojas MDLAB - BLOOD ORDERABLESFinal ResultPerforming OrganizationAddressCity/State/ZIP CodePhone Number LABORATORY [facility][1] Lab [address] Lab (no room number, 1st floor of clinic) [place] [address], [place] * (ABNORMAL) Testosterone total (02/18/2025 10:04 AM [facility])ComponentValueRef Range Test MethodAnalysis TimePerformed AtPathologist SignatureTestosterone Total<2 [...] Unknown 02/18/2025 10:04 AM CST02/18/2025 10:04 AM [facility] Narrative [facility] - 02/21/2025 11:01 AM [facility] This test was developed and its performance characteristics determined by the [facility], Special [facility] Laboratory. It has not been cleared or approved by the FDA. The laboratory is regulated under CLIA as qualified to perform high-complexity testing. This test is used for clinical purposes. It should not be regarded as investigational or for research. Authorizing ProviderResult TypeResult StatusGautakimani Rojas MDLAB - BLOOD ORDERABLESFinal ResultPerforming OrganizationAddressCity/State/ZIP CodePhone Number [facility] [address] [facility], Room [address] [phone] * PSA tumor marker (02/18/2025 10:04 AM [facility])ComponentValueRef RangeTest Method Analysis TimePerformed AtPathologist SignaturePSA Monitoring0.07<=7.20 ng/mL 02/19/2025 4:42 AM CSTUU LABORATORYSpecimen (Source)Anatomical Location / LateralityCollection Method / VolumeCollection TimeReceived TimeBloodBLOOD SPECIMEN / UnknownVenipuncture / Tphuglo2502/18/2025 10:04 AM CST02/18/2025 10:04 AM [facility] LAB[facility] - 02/19/2025 4:42 AM [facility] This result is obtained using the Dwayne [...] equal to 0.03 ng/mL. (1) 1. Kim LJ, Steve Z, Loyd DW, et al. Do ultrasensitive prostate specific antigen measurements have a role in predicting long-term biochemical recurrence- free survival in men after radical prostatectomy? J Urol. 2016;195(2):330-336. doi:10.1016/j.juro.2015.08.080 Authorizing ProviderResult TypeResult StatusGautam Ubaldo Rojas MDLAB - BLOOD ORDERABLESFinal ResultPerforming OrganizationAddressCity/State/ZIP CodePhone Number UU LABORATORY [facility] [place] [facility] 500 [facility], [address] [phone] * (ABNORMAL) Comprehensive metabolic panel (02/18/2025 10:04 AM [facility])Component ValueRef RangeTest MethodAnalysis TimePerformed AtPathologist SignatureSodium 653646 - 145 mmol/L104/22/2024 3:49 AM CSTUU LABORATORYPotassium4.53.4 - 5.3 mmol/L104/22/2024 3:49 AM CSTUU LABORATORYCarbon Dioxide (CO2)2922 - 29 mmol/L 02/19/2025 3:49 AM CSTUU LABORATORYAnion Yjk976 - 15 mmol/L104/22/2024 3:49 AM CSTUU LABORATORYUrea Vuifvzjh12.58.0 - 23.0 mg/dL02/19/2025 3:49 AM CSTUU LABORATORYCreatinine1.53(H)0.67 - 1.17 mg/dL02/19/2025 3:49 AM CSTUU LABORATORYGFR Aoofknvi38(L)>60 mL/min/1.66n85102/19/2025 3:49 AM CSTUU LABORATORYComment:eGFR calculated using 2020 CKD-EPI equation.Calcium9.38.8 - 10.4 mg/dL02/19/2025 3:49 AM CSTUU MOOBAXGHZCXrkfekml00142 - 107 mmol/L 02/19/2025 3:49 AM CSTUU XEZASMUYGJSdhuhjt623(H)70 - 99 mg/dL02/19/2025 3:49 AM CSTUU LABORATORYAlkaline Dmvinkjmlon44209 - 150 U/L104/22/2024 3:49 AM CSTUU VDZBKFTCTLFAG975 - 45 U/L104/22/2024 3:49 AM CSTUU FYIWMNBYHGQDW789 - 70 U/L 02/19/2025 3:49 AM CSTUU LABORATORYProtein Total6.46.4 - 8.3 g/dL02/19/2025 3:49 AM CSTUU LABORATORYAlbumin3.3(L)3.5 - 5.2 g/dL02/19/2025 3:49 AM CSTUU LABORATORYBilirubin Total1.5(H)<=1.2 mg/dL02/19/2025 3:49 AM CSTUU LABORATORY Specimen (Source)Anatomical Location / LateralityCollection Method / Volume Collection TimeReceived TimeBloodBLOOD SPECIMEN / UnknownVenipuncture / Bdtavtx6002/18/2025 10:04 AM CST02/18/2025 10:04 AM [facility] Narrative Authorizing ProviderResult TypeResult StatusChristiano MADDOX - BLOOD ORDERABLESFinal ResultPerforming OrganizationAddressCity/State/ZIP CodePhone Number LABORATORY [facility] 500 [facility], [address] * Phosphorus (02/18/2025 10:04 AM [facility])ComponentValueRef RangeTest MethodAnalysis TimePerformed AtPathologist SignaturePhosphorus2.62.5 - 4.5 mg/dL02/19/2025 3:49 AM CSTUU LABORATORYSpecimen (Source)Anatomical Location / Laterality Collection Method / VolumeCollection TimeReceived TimeBloodBLOOD SPECIMEN / UnknownVenipuncture / Eshyivz9502/18/2025 10:04 AM CST02/18/2025 10:04 AM [facility] Narrative Authorizing ProviderResult TypeResult StatusChristiano Rojas MDLAB - BLOOD ORDERABLESFinal ResultPerforming OrganizationAddressCity/State/ZIP CodePhone Number U LABORATORY 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, initial encounter Acute deep vein thrombosis (DVT) of calf muscle vein of left lower extremity (H) Avulsion of skin of forearm, initial encounter- Primary Right elbow pain Pain in joint, upper arm documented in this encounter Additional Health Concerns AssessmentNoted TimePHQ-9 Depression Total Score: 6003/17/2024 12:22 PM [facility] documented as of this encounter Care Teams Team MemberRelationshipSpecialtyStart [place] [address] [place] [address] PCP - GeneralFamily Ywbbownw08/18/25 Carolyn Bettencourt PA-C Physician AssistantHematology & Oncology03/11/24 Christiano Rojas MD 420 [facility] [address] [place] [address] MDHematology & Oncology03/11/24 Hannah Rosa PA-C [address] [place] [address] Assigned PCP03/26/24 Rupert Thorpe MD 420 [facility] [address] [place], [place] [phone] Assigned Surgical Provider04/26/24 Nikita Saini MD [address] [place], [place] [phone] MDCardiovascular Disease06/04/24 Pepe Sierra PA-C [address] [place] [address] Assigned Heart and Vascular Provider08/24/24 Cookie Shay, RN Specialty Care CoordinatorHematology & Oncology10/15/24 Christiano Rojas MD [address] [place] [address] Assigned Cancer Care Lmmrlvip38/23/25documented as of this encounter
--- OUTSIDE RECORDS SUMMARY | 2025-02-18 10:40 | XMS_ITS | Encounter Summary ---
Author Organization [facility] Address [address] [place] [address]. [place] [address] Care Team Providers Care Citrus Fruit Packer Name Role Phone Carolyn Bettencourt PA-C Unavailable Christiano Rojas MD Unavailable [phone] Hannah Rosa PA-C Unavailable [phone] Rupert Thorpe MD Unavailable Nikita Saini MD Unavailable [phone] Pepe Sierra PA-C Unavailable [phone] Cookie Shay RN Unavailable Unavailable BobChristiano espinoza MD Unavailable [phone] Ruben Marcano DO Primary Care Provider [phone] Reason for Visit * ReasonCommentsUrgent CareBilateral eye redness, x 2 days, more in left, mattering, crusted over in morning, itches, swollen,redness underneath eye- used OTC eye drops. had pink eye 2 weeks ago. Encounter Details DateTypeDepartmentCare Team (Latest Contact Info)Rffkjjwufhf67/18/2025 10:40 AM CSTOffice Visit [facility] [place] [address] [place] [address] Elva Ronquillo PA-C Acute bacterial conjunctivitis of both eyes (Primary Dx) Social History Tobacco UseTypesPacks/DayYears UsedDateSmoking Tobacco: FormerSmokeless Tobacco: Never Comments:quit age 28 Alcohol UseStandard Drinks/WeekCommentsNot Currently0 (1 standard drink = 0.6 oz pure alcohol)stopped ETOH 2015PHQ-2AnswerDate RecordedPHQ-2 Xlsfm930 Adolescent EducationAnswerDate RecordedGetting School Help NeededNot on [...] in an abandoned building, in an overnight skilled nursing, or couch-surfing.)Yes03/17/2024re you worried about losing your [...] ex-partner?Yes03/08/2024Sex and Gender InformationValueDate RecordedSex Assigned at BibxiDgim59/20/2025 10:09 AM CSTLegal GzgQzhf61/04/2012 4:01 AM CSTGender CcpfkkrnEpmz61/20/2025 10:08 AM CSTSexual EpnvzrrimvpZrozatxb56/20/2025 10:08 AM CSTOccupationIndustry Job Start DateJob End DateEncryption communication telephoneNot on fileNot on fileNot on filedocumented as of this encounter Last Filed Vital Signs Vital SignReadingTime TakenCommentsBlood Raulokwh257/7002/18/2025 10:53 AM SKIVER COUNTER Csxdw530202/18/2025 10:53 AM TWSAfsnhrufkeq46.7 ??C (98 ??F)02/18/2025 10:53 AM CSTRespiratory Nowk318404/21/2024 10:53 AM CSTOxygen Ggsftpbooh78%02/18/2025 10:53 AM CSTInhaled Oxygen Concentration--Idprra54.6 kg (180 lb)02/18/2025 10:53 AM ELZChaamc107.7 cm (5' 8)02/18/2025 10:53 AM CSTBody Mass Index27.37104/21/2024 10:53 AM CSTdocumented in this encounter Progress Notes * Hannah Alves CMA - 02/18/2025 10:40 AM CST Urgent Care Clinic Visit Chief Complaint Patient presents with Urgent Care Bilateral eye redness, x 2 days, more in left, mattering, crusted over in morning, itches, swollen,redness underneath eye- used OTC eye drops. had pink eye 2 weeks ago. 02/18/2025 11:02 AM Additional Questions Roomed by Hannah Thomson Accompanied by ER COUNTER * Evla Ronquillo PA-C - 02/18/2025 10:40 AM CST Assessment & Plan: ICD-10-CM 1. Acute bacterial conjunctivitis of both eyes H10.33 ofloxacin (OCUFLOX) 0.3 % ophthalmic solution Plan/Clinical Decision Making: Assessment & Plan Acute bacterial conjunctivitis of both eyes: - Acute bacterial conjunctivitis involving both eyes. - Prescribed antibiotic ophthalmic drops for both eyes, to be instilled 4 times daily. Advised to use a warm washcloth to gently remove crusting. Instructed to use one to two drops each time, ensuring at least one good drop reaches the eye, and to continue drops for approximately 3-7 days and stop once symptoms have completely resolved. Return if symptoms worsen or fail to improve, for in 2-3 days. At the end of the encounter, I discussed results, diagnosis, medications. Discussed red flags for immediate return to clinic/ER, as well as indications for follow up if no improvement. Patient understood and agreed to plan. Patient was stable for discharge. Elva Ronquillo PA-C on 02/18/2025 at 11:08 AM Subjective: HPI: Hank is a 89 year old male who presents to clinic today for the following health issues: Chief Complaint Patient presents with Urgent Care Bilateral eye redness, x 2 days, more in left, mattering, crusted over in morning, itches, swollen,redness underneath eye- used OTC eye drops. had pink eye 2 weeks ago. HPI History of Present Illness Hank Ocampo, 89-year-old male - Redness and discharge from eye for approximately 2 days, with previous similar episode last week - Discharge dries and causes crusting, extends beyond the eye - Tingling and deep itch sensation around the eye - Denies pain around the eye - Denies vision loss - No fever or significant nasal symptoms - Egjn-ihz-yumsupn eyewash (Clear Eyes) used last night for discharge - Difficulty administering eye drops, assisted with application - Blood count performed today in preparation for cancer treatment scheduled tomorrow Review of Systems Constitutional: Negative for fever. HENT: Negative for congestion and rhinorrhea. Eyes: Positive for pain, discharge, redness and itching. Negative for photophobia and visual disturbance. See HPI. 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 08/05/2015 History of acute alcoholic hepatitis 01/2015 History of pulmonary embolism & DVT 06/[address] trip History of elevated PSA - 2015 - [place] - (7.4) March 2022 Neuropathic pain, leg, right Chronic gout without tophus, unspecified cause, unspecified site History of alcohol abuse Past Medical History: Diagnosis Date Deep vein thrombosis Gastroesophageal reflux disease Gout History of basal cell carcinoma Hypertension Mixed hyperlipidemia Prostate cancer (H) Stage IV - Dr Rojas Pulmonary embolism Social History Tobacco Use Smoking status: Former Smokeless tobacco: Never Tobacco comments: quit age 28 Substance Use Topics Alcohol use: Not Currently Comment: stopped ETOH 2014 Objective: Vitals: 02/18/25 1053 BP: 106/70 Pulse: 61 Resp: 18 Temp: 98 ??F (36.7 ??C) SpO2: 97% Weight: 81.6 kg (180 lb) Height: 1.727 m (5' 8) Physical Exam EXAM: Pleasant, alert, appropriate appearance. NAD. Head Exam: Normocephalic, atraumatic. Eye Exam: Conjunctival injection with purulent discharge in the left eye and mildly in right eye. Pupils are equal, round, and reactive to light (PERRL). Extraocular movements are intact (EOMI). No periorbital tenderness. Results: Results for orders placed or performed in visit on 02/18/25 D dimer quantitative Status: Abnormal Result Value Ref Range D-Dimer Quantitative 0.82 (H) 0.00 - 0.50 ug/mL FEU Narrative This D-dimer assay is intended for use in conjunction with a clinical pretest probability assessment model to exclude pulmonary embolism (PE) and deep venous thrombosis (DVT) in outpatients suspectedof PE or DVT. The cut-off value is [...] pulmonary embolism: The ADJUST-PE Study. JOSE ARMANDO 2014;311:4445-7590.; LUCAS Brown et al. Diagnostic accuracy of conventional or age adjusted D-dimer cutoff values in older patients with suspected venous thromboembolism. Systemic review and meta- analysis. BMJ 2013:346:f2492. CBC with platelets and differential Status: Abnormal Result Value Ref Range WBC Count 9.30 4.00 - 11.00 10e3/uL RBC Count 4.37 (L) 4.40 - 5.90 10e6/uL Hemoglobin 14.4 13.3 - 17.7 g/dL Hematocrit 43.1 40.0 - 53.0 % MCV 98.6 78.0 - 100.0 fL MCH 33.0 26.5 - 33.0 pg MCHC 33.4 31.5 - 36.5 g/dL RDW 13.8 10.0 - 15.0 % Platelet Count 149 (L) 150 - 450 10e3/uL % Neutrophils 76.3 % % Lymphocytes 10.6 % % Monocytes 10.5 % % Eosinophils 2.0 % % Basophils 0.4 % % Immature Granulocytes 0.2 % Absolute Neutrophils 7.08 1.60 - 8.30 10e3/uL Absolute Lymphocytes 0.99 0.80 - 5.30 10e3/uL Absolute Monocytes 0.98 0.00 - 1.30 10e3/uL Absolute Eosinophils 0.19 0.00 - 0.70 10e3/uL Absolute Basophils 0.04 0.00 - 0.20 10e3/uL Absolute Immature Granulocytes <0.04 <=0.40 10e3/uL CBC with Platelets & Differential Status: Abnormal Narrative The following orders were created for panel order CBC with Platelets & Differential. Procedure Abnormality Status --------- ------ CBC with platelets and ...[[id number]] Abnormal Final result Please view results for these tests on the individual orders. Consent was obtained from the patient to use an AI documentation tool in the creation of this note. ER COUNTER documented in this encounter Plan of Treatment DateTypeDepartmentCare Team (Latest Contact Info)Qvnqiwehntq36/29/2025 2:00 PM CSTOffice Visit [facility] [address] [place] [phone] [place] [address] [place] [address] 04/08/2025 10:15 AM CSTLab [facility] [address] [place] [address] 04/09/2025 11:00 AM CSTOncology Visit [address] [place] [address] [facility] [place] [address] Christiano Rojas MD [address] [place] [address] 04/09/2025 12:30 PM CSTAllied Health/Nurse Visit [address] [place] [address] [facility] [place] [address] Christiano Rojas MD [address] [place] [address] 04/20/2025 9:20 AM CSTOffice Visit [facility] [address] [facility] [address] [place] [phone] Pepe Sierra PA-C [address] [place], [place] [address] documented as of this encounter Goals GoalPatient [...] not send urgent or symptomatic messages through drop.io. I will contact scheduling to arrange or make changes in my appointments. documented as of this encounter Visit Diagnoses Diagnosis Acute bacterial conjunctivitis of both eyes- Primary documented in this encounter Additional Health Concerns AssessmentNoted TimePHQ-9 Depression Total Score: 6003/17/2024 12:22 PM SKIVER COUNTER documented as of this encounter Care Teams Team MemberCuyuna Regional Medical CenterpecialtyStle [place] [address] [place] [address] PCP - GeneralFamily Ytprujkk57/18/25 Carolyn Bettencourt PA-C Physician AssistantHematology & Oncology03/11/24 Christiano Rojas MD 420 [facility] 480 [place] [address] MDHematology & Oncology03/11/24 Hannah Rosa PA-C [address] [place] [address] Assigned PCP03/26/24 Rupert Thorpe MD 420 [facility] 394 [place], [place] [address] Assigned Surgical Provider04/26/24 Nikita Saini MD [address] [place], [place] [address] MDCardiovascular Disease06/04/24 Pepe Sierra PA-C [address] [place] [address] Assigned Heart and Vascular Provider08/24/24 Cookie Shay, RN Specialty Care CoordinatorHematology & Oncology10/15/24 Christiano Rojas MD [address] [place] [address] [address] [place], [place] [address] Assigned Cancer Care Ojvncizc76/23/25documented as of this encounter
--- OUTSIDE RECORDS SUMMARY | 2025-02-18 10:40 | XMS_ITS | Encounter Summary ---
Author Organization [facility] Address [address] [place] [address]. [place] [address] Care Team Providers Care Transportation Consultant Name Role Phone Carolyn Bettencourt PA-C Unavailable Christiano Rojas MD Unavailable [phone] Hannah Rosa PA-C Unavailable [phone] Rupert Thorpe MD Unavailable Nikita Saini MD Unavailable [phone] Pepe Sierra PA-C Unavailable [phone] Cookie Shay RN Unavailable Unavailable BobChristiano espinoza MD Unavailable [phone] Ruben Marcano DO Primary Care Provider [phone] Reason for Visit * ReasonCommentsUrgent CareBilateral eye redness, x 2 days, more in left, mattering, crusted over in morning, itches, swollen,redness underneath eye- used OTC eye drops. had pink eye 2 weeks ago. Encounter Details DateTypeDepartmentCare Team (Latest Contact Info)Gkiajetcnji08/18/2025 10:[address] [facility] [place] [address] [place] [address] Elva Ronquillo PA-C Acute bacterial conjunctivitis of both eyes (Primary Dx) Social History Tobacco UseTypesPacks/DayYears UsedDateSmoking Tobacco: FormerSmokeless Tobacco: Never Comments:quit age 28 Alcohol UseStandard Drinks/WeekCommentsNot Currently0 (1 standard drink = 0.6 oz pure alcohol)stopped ETOH 2015PHQ-2AnswerDate RecordedPHQ-2 Hgsau943 Adolescent EducationAnswerDate RecordedGetting School Help NeededNot on [...] in an abandoned building, in an overnight care home, or couch-surfing.)Yes03/17/2024re you worried about losing your [...] ex-partner?Yes03/08/2024Sex and Gender InformationValueDate RecordedSex Assigned at FynrwLjkl13/20/2025 10:09 AM CSTLegal BkzBngv61/04/2012 4:01 AM CSTGender OybmounuHvbj97/20/2025 10:08 AM CSTSexual QmdrkshfecxSguqpwdr73/20/2025 10:08 AM CSTOccupationIndustry Job Start DateJob End DateEncryption communication telephoneNot on fileNot on fileNot on filedocumented as of this encounter Last Filed Vital Signs Vital SignReadingTime TakenCommentsBlood Ydrjbdcs770/7002/18/2025 10:53 AM DIRECTOR OF EMAIL MARKETING Cqhqs005602/18/2025 10:53 AM ILUGrdjdtzryiu78.7 ??C (98 ??F)02/18/2025 10:53 AM CSTRespiratory Misq120204/21/2024 10:53 AM CSTOxygen Hvyxtgyvhk98%02/18/2025 10:53 AM CSTInhaled Oxygen Concentration--Qwboxj80.6 kg (180 lb)02/18/2025 10:53 AM NMRXjaojj547.7 cm (5' 8)02/18/2025 10:53 AM CSTBody Mass [...] Questions Roomed by Hannah Thomson Accompanied by CTOR OF EMAIL MARKETING * Elva Ronquillo PA-C - 02/18/2025 10:40 AM CST [...] No fever or significant nasal symptoms - Ibnk-dbo-lrqblpv eyewash (Clear Eyes) used last night for [...] History of elevated PSA - 2015 - [place] - (7.4) March 2022 Neuropathic pain, leg, [...] pulmonary embolism: The ADJUST-PE Study. JOSE ARMANDO 2014;311:3967-8386.; LUCAS Brown et al. Diagnostic accuracy of [...] Status --------- ------ CBC with platelets and ...[[id number]] Abnormal Final result Please view results for these tests on the individual orders. Consent was obtained from the patient to use an AI documentation tool in the creation of this note. CTOR OF EMAIL MARKETING documented in this encounter Plan of Treatment DateTypeDepartmentCare Team (Latest Contact Info)Fpvdreubzbc33/27/2025 2:25 PM CSTOffice Visit [facility] [address] [place] [phone] Miko Dale PA-C [address] [place] [address] 6[address] [place] [address] Avulsion of skin of forearm, initial encounter (Primary Dx); Right elbow pain03/01/2025 2:00 PM CSTOffice Visit [facility] [address] [place] [phone] [place] [address] [place] [address] 04/08/2025 10:15 AM CSTLab [facility] [address] [place] [address] 04/09/2025 11:00 AM CSTOncology Visit [address] [place] [address] [facility] [place] [phone] Christiano Rojas MD [address] [place] [address] [address] 04/09/2025 12:30 PM CSTAllied Health/Nurse Visit [address] [place] 200 [facility] [place] [phone] Christiano Rojas MD [address] [place] [address] [address] 04/20/2025 9:20 AM CSTOffice Visit [facility] [address] [facility] [address] [place] [phone] Pepe Sierra PA-C [address] [place], [place] [address] documented as of this encounter Goals GoalPatient Goal TypeAssociated ProblemsRecent ProgressPatient-Stated?Author Other GeneralNoJones, Viky, RN Note: Goal Statement: I will use [...] not send urgent or symptomatic messages through YesVideo. I will contact scheduling to arrange or make changes in my appointments. documented as of this encounter Visit Diagnoses Diagnosis Acute bacterial conjunctivitis of both eyes- Primary Avulsion of skin of forearm, initial encounter- Primary Right elbow pain Pain in joint, upper arm documented in this encounter Additional Health Concerns AssessmentNoted TimePHQ-9 Depression Total Score: 6003/17/2024 12:22 PM DIRECTOR OF EMAIL MARKETING documented as of this encounter Care Teams Team MemberRelationshipSpecialtyStart [place] [address] [place] [address] PCP - GeneralFamily Puucvihl09/18/25 Carolyn Bettencourt PA-C Physician AssistantHematology & Oncology03/11/24 Christiano Rojas MD [address] [address] Hematology & Oncology03/11/24 Hannah Rosa PA-C [address] [place] [address] Assigned PCP03/26/24 Rupert Thorpe MD 420 [facility] [address] [place], [place] [address] Assigned Surgical Provider04/26/24 Nikita Saini MD 516 [place], [place] [address] MDCardiovascular Disease06/04/24 Pepe Sierra PA-C [address] [place], [place] [address] Assigned Heart and Vascular Provider08/24/24 Cookie Shay, RN Specialty Care CoordinatorHematology & Oncology10/15/24 Christiano Rojas MD 420 [facility] 480 [place], [place] [address] Assigned Cancer Care Jwtlljat90/23/25documented as of this encounter
--- OUTSIDE RECORDS SUMMARY | 2025-02-19 08:30 | XMS_ITS | Encounter Summary ---
Author Organization [facility] Address [address] [place] [address] Care Team Providers Care Cooling Pan Tender Name Role Phone Amrik Carolyn Lawson PA-C Unavailable Christiano Rojas MD Unavailable [phone] Hannah Rosa PA-C Unavailable [phone] Rupert Thorpe MD Unavailable Nikita Saini MD Unavailable [phone] Pepe Sierra PA-C Unavailable [phone] Cookie Shay RN Unavailable Unavailable BobChristiano espinoza MD Unavailable [phone] Ruben Marcano DO Primary Care Provider [phone] Reason for Visit * ReasonCommentsOncology Clinic Visit Encounter Details DateTypeDepartmentCare Team (Latest Contact Info)Pxvqfjlthxz04/19/2025 8:30 AM CSTOncology Visit [facility] [address] [facility] [place] [phone] [place] [address] [place] [address] Prostate cancer (H) (Primary Dx); 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) Social History Tobacco UseTypesPacks/DayYears UsedDateSmoking Tobacco: FormerSmokeless Tobacco: Never Tobacco Cessation:Counseling Given: Not Answered Comments:quit age 28 Alcohol UseStandard Drinks/WeekCommentsNot Currently0 (1 standard drink = 0.6 oz pure alcohol)stopped ETOH 2014PHQ-2AnswerDate RecordedPHQ-2 [id number] Adolescent EducationAnswerDate RecordedGetting School Help NeededNot on [...] in an abandoned building, in an overnight long-term, or couch-surfing.)Yes03/17/2024re you worried about losing your [...] ex-partner?Yes03/08/2024Sex and Gender InformationValueDate RecordedSex Assigned at KrlxsIsoh59/20/2025 10:09 AM CSTLegal HydUghl41/04/2012 4:01 AM CSTGender UrrpjblmUyid03/20/2025 10:08 AM CSTSexual TcfzqcinabsTouvwrgo02/20/2025 10:08 AM CSTOccupationIndustry Job Start DateJob End DateEncryption communication telephoneNot on fileNot on fileNot on filedocumented as of this encounter Last Filed Vital Signs Vital SignReadingTime TakenCommentsBlood Nxsyxziz328/80104/22/2024 8:19 AM STORE MANAGEMENT TRAINEE Eyvij377902/19/2025 8:19 AM BTWFowzupevoja52.2 ??C (97.1 ??F)02/19/2025 8:19 AM CSTRespiratory Feaz8003 8:19 AM CSTOxygen Qvtwpesdmp82%02/19/2025 8:19 AM CSTInhaled Oxygen Concentration--Vzkigs30.1 kg (181 lb 1.6 oz)02/19/2025 8:19 AM CSTHeight--Body Mass Index27.5402/18/2025 10:53 AM CSTdocumented in this encounter Progress Notes * Nigel Alicea PA - 02/19/2025 8:30 AM CST Oncology/Hematology Visit Note Feb 19, 2025 Reason for visit: Metastatic prostate cancer Oncology HPI: Kwame Ocampo is a 89 year old male with metastatic prostate cancer. He was admitted to [facility] on 03/06/2024 for significant back pain, found to have compression fractures of T12 and L1, concerning for pathological fractures. PSA was significantly elevated > 700 and presumed metastatic prostate cancer. He was temporarily started on Casodex, then given a dose of Lupron and Zometa while inpatient. He was also seen by Radiation Oncology for the back pain and underwent 5 fractions from 03/09-03/13/24. He was seen by Dr Rojas in the outpatient setting and he requested prostate biopsy to have further tissue for possible NGS testing. They discussed ADT with or without chemotherapy. Ultimately, it was decided that he would start abiraterone/prednisone (first dose 03/22/24) and hold on further Lupron. Dr. Rojas recommended PET PSMA next available. He also recommended Xgeva for his bony metastasis. He was referred to IR for possible kyphoplasty. He was seen by Dr. Thorpe and multiple prostate biopsies confirmed prostate cancer. He continued onabiraterone/prednisone. He is here today for follow-up of abiraterone/prednisone and Xgeva. Interval History: Hank is here with his . Has bilateral conjunctivitis and on meds for this. Otherwise doing well. No fevers or respiratory concerns. No pain issues. No cardiac issues. He is eating and drinking well. No urinary concerns. Tolerating Abiraterone/prednisone well. Current Outpatient Medications Medication Sig Dispense Refill abiraterone (ZYTIGA) 250 MG tablet Take 2 tablets (500 mg) by mouth daily (with breakfast). 60 tablet 2 apixaban ANTICOAGULANT (ELIQUIS) 5 MG tablet Take 1 tablet (5 mg) by mouth 2 times daily. 180 tablet 3 calcium carbonate (OS-CLARISSA) 500 MG tablet Take 1 tablet by mouth daily. furosemide (LASIX) 20 MG tablet Take 1 tablet (20 mg) by mouth every morning. 90 tablet 3 losartan (COZAAR) 25 MG tablet Take 1 tablet (25 mg) by mouth daily. 90 tablet 3 metoprolol succinate ER (TOPROL XL) 25 MG 24 hr tablet Take 1 tablet (25 mg) by mouth every morning. 90 tablet 3 predniSONE (DELTASONE) 5 MG tablet Take 1 tablet (5 mg) by mouth daily (with breakfast). 30 tablet 2 vitamin D3 (CHOLECALCIFEROL) 50 mcg (2000 units) tablet Take 1 tablet by mouth daily. Past Medical History Past Medical History: Diagnosis Date Deep vein thrombosis Gastroesophageal reflux disease Gout History of basal cell carcinoma Hypertension Mixed hyperlipidemia Prostate cancer (H) Stage IV - Dr Rojas Pulmonary embolism Past Surgical History: Procedure Laterality Date ENDOSCOPIC RETROGRADE CHOLANGIOPANCREATOGRAM N/A 08/24/2020 Procedure: ENDOSCOPIC RETROGRADE CHOLANGIOPANCREATOGRAPHY, sphincterotomy, stone extractions; Surgeon: Reyes Cobos MD; Location: [facility] OR Excision of digital mucous cyst LAPAROSCOPIC CHOLECYSTECTOMY WITH CHOLANGIOGRAMS N/A 08/25/2020 Procedure: CHOLECYSTECTOMY, LAPAROSCOPIC, WITH CHOLANGIOGRAM; Surgeon: Marlon Souza MD; Location: [facility] OR PROSTATE BIOPSY Bilateral 03/27/2024 TONSILLECTOMY Vasectomy Allergies[1] Social History Social History Tobacco Use Smoking status: Former Smokeless tobacco: Never Tobacco comments: quit age 28 Vaping Use Vaping status: Never Used Substance Use Topics Alcohol use: Not Currently Comment: stopped ETOH 2014 Drug use: Never Past medical history and social history were reviewed. Physical Examination: BP 125/80 Pulse 67 Temp 97.1 ??F (36.2 ??C) (Temporal) Resp 20 Wt 82.1 kg (181 lb 1.6 oz) SpO2 98% BMI 27.54 kg/m?? Wt Readings from Last 10 Encounters: 01/08/25 84.1 kg (185 lb 8 oz) 11/20/24 84.1 kg (185 lb 6.4 oz) 10/22/24 81.6 kg (180 lb) 10/09/24 80.7 kg (177 lb 14.4 oz) 08/14/24 79.2 kg (174 lb 11.2 oz) 08/12/24 79.5 kg (175 lb 4.8 oz) 07/29/24 78.7 kg (173 lb 6.4 oz) 07/03/24 76.4 kg (168 lb 6.4 oz) 06/10/24 69.9 kg (154 lb 1.6 oz) 04/22/24 80.6 kg (177 lb 9.6 oz) Constitutional: Well-appearing male in no acute distress. Eyes: Bilateral conjunctival erythema. Cardiovascular: Irregular rate and rhythm. No murmurs, gallops, or rubs. No peripheral edema. Respiratory: Clear to auscultation bilaterally. No wheezes or crackles. Gastrointestinal: Bowel sounds present. Abdomen soft, non-tender. Neurologic: Cranial nerves II through XII are grossly intact. Skin: No rashes, petechiae, or bruising noted on exposed skin. Laboratory Data: Latest Reference Range & Units 02/18/25 10:04 Sodium 135 - 145 mmol/L 141 Potassium 3.4 - 5.3 mmol/L 4.5 Chloride 98 - 107 mmol/L 102 Carbon Dioxide (CO2) 22 - 29 mmol/L 29 Urea Nitrogen 8.0 - 23.0 mg/dL 22.5 Creatinine 0.67 - 1.17 mg/dL 1.53 (H) GFR Estimate >60 mL/min/1.73m2 43 (L) Calcium 8.8 - 10.4 mg/dL 9.3 Anion Gap 7 - 15 mmol/L 10 Phosphorus 2.5 - 4.5 mg/dL 2.6 Albumin 3.5 - 5.2 g/dL 3.3 (L) Protein Total 6.4 - 8.3 g/dL 6.4 Alkaline Phosphatase 40 - 150 U/L 101 ALT 0 - 70 U/L 13 AST 0 - 45 U/L 33 Bilirubin Total <=1.2 mg/dL 1.5 (H) (H): Data is abnormally high (L): Data is abnormally low Latest Reference Range & Units 02/18/25 10:04 Glucose 70 - 99 mg/dL 136 (H) PSA Monitoring <=7.20 ng/mL 0.07 (H): Data is abnormally high Latest Reference Range & Units 02/18/25 10:04 WBC 4.00 - 11.00 10e3/uL 9.30 Hemoglobin 13.3 - 17.7 g/dL 14.4 Hematocrit 40.0 - 53.0 % 43.1 Platelet Count 150 - 450 10e3/uL 149 (L) RBC Count 4.40 - 5.90 10e6/uL 4.37 (L) MCV 78.0 - 100.0 fL 98.6 MCH 26.5 - 33.0 pg 33.0 MCHC 31.5 - 36.5 g/dL 33.4 RDW 10.0 - 15.0 % 13.8 % Neutrophils % 76.3 % Lymphocytes % 10.6 % Monocytes % 10.5 % Eosinophils % 2.0 % Basophils % 0.4 % Immature Granulocytes % 0.2 Absolute Neutrophil 1.60 - 8.30 10e3/uL 7.08 Absolute Lymphocytes 0.80 - 5.30 10e3/uL 0.99 Absolute Monocytes 0.00 - 1.30 10e3/uL 0.98 Absolute Eosinophils 0.00 - 0.70 10e3/uL 0.19 Absolute Basophils 0.00 - 0.20 10e3/uL 0.04 Absolute Immature Granulocytes <=0.40 10e3/uL <0.04 (L): Data is abnormally low Assessment and Plan: Kwame Ocampo is a 89 year old male with metastatic prostate cancer s/p Lupron x 1, Casodex x 4 days, now on abiraterone/prednisone. Metastatic prostate cancer: Diagnosed in early March 2024, admitted to the hospital for severe back pain, noted to have metastatic lesions with PSA 759. He was started on Casodex initially, received a dose of Lupron and then started on abiraterone/prednisone, which she has been tolerating well. Initially was suspected to be prostate cancer, but ultimately, prostate biopsy confirmed adenocarcinoma, consistent with metastatic prostate cancer to the bones. He underwent radiation to his back, seebelow. -Received Lupron 22.5 mg inpatient on 03/10/2024 -Now on abiraterone/prednisone, first dose 03/22/2024 -We will hold Lupron while on abiraterone -PET scan on 05/01/2024 with focal uptake in the prostate, right and left external iliac nodes with increased uptake and multiple bony metastasis. Improvement on follow-up CT and bone scan this fall. - He continues to tolerate abiraterone and prednisone extremely well. Some fatigue, but tolerable - Labs reviewed today, PSA 0.07, testosterone pending. Creatinine slightly higher, reviewed good hydration and monitoring. - He was given Zometa on 03/07/24, but now receiving Xgeva every 6 weeks or so, given today - [address] Rojas with Xgeva Back pain: Likely secondary to metastatic prostate cancer, known widespread osseous metastatic disease, L1 compression fracture on MRI. -Now s/p 5 fractions to T11-L2 and he tolerated this really well. -Back pain essentially resolved -Dr Rojas initially recommended kyphoplasty, but he met with Dr. Ramirez and since his pain has resolved, no need for surgery -Tylenol as needed -Continue Xgeva as above DVT: Recent popliteal DVT. Currently on Eliquis 5 mg BID. -Continue current regimen, no bleeding - D dimer improving CV: Hx significant cardiac/cardiovascular issues and concerns while in [place] last winter. - BP and oxygen saturations have been normal and stable - Continues on furosemide, losartan, metoprolol - No new concerns today 15 minutes spent on the date of the encounter doing chart review, review of test results, interpretation of tests, patient visit, and documentation Nigel Alicea PA-C Department of [facility] [1] Allergies Allergen Reactions Diltiazem Fatigue Sunscreens Rash Must use Paba-free sunscreen. E MANAGEMENT TRAINEE documented in this encounter Nursing Notes * Carmela Gerber CMA - 02/19/2025 8:30 AM CST Oncology Rooming Note February 19, 2025 8:22 AM Kwame Ocampo is a 89 year old male who presents for: Chief Complaint Patient presents with Oncology Clinic Visit Initial Vitals: BP 125/80 Pulse 67 Temp 97.1 ??F (36.2 ??C) (Temporal) Resp 20 Wt 82.1 kg (181 lb 1.6 oz) SpO2 98% BMI 27.54 kg/m?? Estimated body mass index is 27.54 kg/m?? as calculatedfrom the following: Height as of 02/18/25: 1.727 m (5' 8). Weight as of this encounter: 82.1 kg (181 lb 1.6 oz). Body surface area is 1.98 meters squared. No Pain (0) Comment: Data Unavailable No LMP for male patient. Allergies reviewed: Yes Medications reviewed: Yes Medications: Medication refills not needed today. Pharmacy name entered into [facility]: [facility] - [place], [place] - [address] [facility] [address] [place], [place] - [address] [address] PHQ9: Did this patient require a PHQ9?: No Clinical concerns: f/u Carmela Gerber CMA E MANAGEMENT TRAINEE documented in this encounter Plan of Treatment DateTypeDepartmentCare Team (Latest Contact Info)Fbdqhjredna97/27/2025 2:25 PM CSTOffice Visit [facility] [address] [phone] Miko Dale PA-C [address] [place] [address] [address] [place] [address] Avulsion of skin of forearm, initial encounter (Primary Dx); Right elbow pain03/01/2025 2:00 PM CSTOffice Visit [facility] [address] [place] [phone] [place] [address] [place] [address] 04/08/2025 10:15 AM CSTLab [facility] [address] [place] [address] 04/09/2025 11:00 AM CSTOncology Visit [facility] [address] [place] [address] [address] [facility] [place] [address] Christiano Rojas MD [address] [address] 04/09/2025 12:30 PM CSTAllied Health/Nurse Visit [address] [facility] [place] [address] Christiano Rojas MD [address] [place] [address] 04/20/2025 9:20 AM CSTOffice Visit [facility] [place] [id number] [facility] [address] [place] [phone] Pepe Sierra PA-C [address] [place], [place] [phone] documented as of this encounter Goals GoalPatient [...] not send urgent or symptomatic messages through [employer]. I will contact scheduling to arrange or make changes in my appointments. 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 Avulsion of skin of forearm, initial encounter- Primary Right elbow pain Pain in joint, upper arm documented in this encounter Additional Health Concerns AssessmentNoted TimePHQ-9 Depression Total Score: 6003/17/2024 12:22 PM STORE MANAGEMENT TRAINEE documented as of this encounter Care Teams Team MemberRelationshipSpecialtyStart [place] [address] [place] [address] PCP - GeneralFamily Ycyygxdi95/18/25 Carolyn Bettencourt PA-C Physician AssistantHematology & Oncology03/11/24 Christiano Rojas MD 420 [facility] 480 [place] [address] MDHematology & Oncology03/11/24 Hannah Rosa PA-C [address] [place] [address] Assigned PCP03/26/24 Rupert Thorpe MD 420 [facility] [address] [place] [address] Assigned Surgical Provider04/26/24 Nikita Saini MD [address] [place], [place] [phone] MDCardiovascular Disease06/04/24 Pepe Sierra PA-C [address] [place] [address] Assigned Heart and Vascular Provider08/24/24 Cookie Shay, RN Specialty Care CoordinatorHematology & Oncology10/15/24 Christiano Rojas MD [address] [place] [address] Assigned Cancer Care Mvyxynbc06/23/25documented as of this encounter
--- OUTSIDE RECORDS SUMMARY | 2025-02-19 08:30 | XMS_ITS | Encounter Summary ---
Author Organization [facility] Address [address] [place] [address] Care Team Providers Care Entry Level Business Analyst Name Role Phone Amrik Carolyn Lawson PA-C Unavailable Christiano Rojas MD Unavailable [phone] Hannah Rosa PA-C Unavailable [phone] Rupert Thorpe MD Unavailable Nikita Saini MD Unavailable [phone] Pepe Sierra PA-C Unavailable [phone] Cookie Shay RN Unavailable Unavailable BobChristiano espinoza MD Unavailable [phone] Ruben Marcano DO Primary Care Provider [phone] Reason for Visit * ReasonCommentsOncology Clinic Visit Encounter Details DateTypeDepartmentCare Team (Latest Contact Info)Imzgykjpdkj73/19/2025 8:30 AM CSTOncology Visit [facility] [address] [facility] [place] [phone] [place] [address] [facility] [address] [place] [address] Prostate cancer (H) (Primary Dx); 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) Social History Tobacco UseTypesPacks/DayYears UsedDateSmoking Tobacco: FormerSmokeless Tobacco: Never Tobacco Cessation:Counseling Given: Not Answered Comments:quit age 28 Alcohol UseStandard Drinks/WeekCommentsNot Currently0 (1 standard drink = 0.6 oz pure alcohol)stopped ETOH 2014PHQ-2AnswerDate RecordedPHQ-2 Yuixe424 Adolescent EducationAnswerDate RecordedGetting School Help NeededNot on [...] in an abandoned building, in an overnight mcc, or couch-surfing.)Yes03/17/2024re you worried about losing your [...] ex-partner?Yes03/08/2024Sex and Gender InformationValueDate RecordedSex Assigned at LmstbPuvk02/20/2025 10:09 AM CSTLegal XkpGnvk26/04/2012 4:01 AM CSTGender UrozgptxOeoz83/20/2025 10:08 AM CSTSexual HscfnrihndtFnmqfdef26/20/2025 10:08 AM CSTOccupationIndustry Job Start DateJob End DateEncryption communication telephoneNot on fileNot on fileNot on filedocumented as of this encounter Last Filed Vital Signs Vital SignReadingTime TakenCommentsBlood Myeerewv708/80104/22/2024 8:19 AM FIXED INCOME DIRECTOR Lljqc342602/19/2025 8:19 AM SHMXksqnehtock49.2 ??C (97.1 ??F)02/19/2025 8:19 AM CSTRespiratory Yhie0851 8:19 AM CSTOxygen Vfjnlojpya36%02/19/2025 8:19 AM CSTInhaled Oxygen Concentration--Qumepg25.1 kg (181 lb 1.6 oz)02/19/2025 8:19 AM CSTHeight--Body Mass Index27.5402/18/2025 10:53 AM CSTdocumented in this encounter Progress Notes * Nigel Alicea PA - 02/19/2025 8:30 AM CST Oncology/Hematology Visit Note Feb 19, 2025 Reason for visit: Metastatic prostate cancer Oncology HPI: Kwame Ocampo is a 89 year old male with metastatic prostate cancer. He was admitted to [facility] on 03/06/2024 for significant back pain, [...] significant cardiac/cardiovascular issues and concerns while in [place] last winter. - BP and oxygen saturations have been normal and stable - Continues on furosemide, losartan, metoprolol - No new concerns today 15 minutes spent on the date of the encounter doing chart review, review of test results, interpretation of tests, patient visit, and documentation Nigel Alicea PA-C Department of Hematology and Oncology [facility] [1] Allergies Allergen Reactions Diltiazem Fatigue Sunscreens Rash Must use Paba-free sunscreen. D INCOME DIRECTOR documented in this encounter Nursing Notes * [...] not needed today. Pharmacy name entered into [facility]: [facility] - [place], [place] - [address] [facility] [address] [facility] [address] - [place], [place] - [address] [address] PHQ9: Did this patient require a PHQ9?: No Clinical concerns: f/u Carmela Gerber CMA D INCOME DIRECTOR documented in this encounter Plan of Treatment DateTypeDepartmentCare Team (Latest Contact Info)Tphbktsrwrj06/29/2025 2:00 PM CSTOffice Visit [facility] [address] [place] [phone] [place] [address] [place] [address] 04/08/2025 10:15 AM CSTLab [facility] [address] [place] [address] 04/09/2025 11:00 AM CSTOncology Visit [facility] [place] [address] [place] [address] [facility] [place] [address] Christiano Rojas MD 420 [facility] 480 [place] [address] 04/09/2025 12:30 PM CSTAllied Health/Nurse Visit [facility] [place] [address] [facility] [address] [facility] [place] [address] Chrsitiano Rojas MD 420 [facility] 480 [place] [address] 04/20/2025 9:20 AM CSTOffice Visit [facility] [place] [address] [facility] [address] [place] [phone] Pepe Sierra PA-C [address] [place] [place], [place] [address] documented as of this encounter Goals GoalPatient [...] not send urgent or symptomatic messages through [employer]. I will contact scheduling to arrange or make changes in my appointments. 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 documented in this encounter Additional Health Concerns AssessmentNoted TimePHQ-9 Depression Total Score: 601/ 12:22 PM FIXED INCOME DIRECTOR documented as of this encounter Care Teams Team MemberRelationshipSpecialtyStart Date[place] [address] [place] [address] PCP - GeneralFamily Xtppkuou50/18/25 Carolyn Bettencourt PA-C Physician AssistantHematology & Oncology03/11/24 Christiano Rojas MD 420 [facility] 480 [place] [address] MDHematology & Oncology03/11/24 Hannah Rosa PA-C [address] [place] [id number] Assigned PCP03/26/24 Rupert Thorpe MD 420 [facility] 394 [place] [address] Assigned Surgical Provider04/26/24 Nikita Saini MD [address] [place], [place] [address] MDCardiovascular Disease06/04/24 Pepe Sierra PA-C [address] [place], [place] [phone] Assigned Heart and Vascular Provider08/24/24 Cookie Shay, RN Specialty Care CoordinatorHematology & Oncology10/15/24 Christiano Rojas MD 420 [facility] 480 [place] [address] Assigned Cancer Care Vuqsraer04/23/25documented as of this encounter
--- OUTSIDE RECORDS SUMMARY | 2025-02-19 09:00 | XMS_ITS | Encounter Summary ---
Author Organization [place] Address [address] [place] [address] Care Team Providers Care Rattlesnake Farmer Name Role Phone Amrik Carolyn Lawson PA-C Unavailable Christiano Rojas MD Unavailable [phone] Hannah RosaC Unavailable [phone] Rupert Thorpe MD Unavailable Nikita Saini MD Unavailable [phone] Pepe SierraC Unavailable [phone] Cookie Shay RN Unavailable Unavailable Christiano Rojas MD Unavailable [phone] Ruben Marcano DO Primary Care Provider [phone] Reason for Visit * ReasonCommentsInjectionsXgeva Injection * Treatment and Therapy Plans (Routine) - Pending ReviewSpecialtyDiagnoses / ProceduresReferred By ContactReferred To ContactInfusion Therapy Diagnoses 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) Procedures ZZC DENOSUMAB INJECTION, 1 MG Christiano Rojas MD 420 [facility] [address] [place] [address] Phone: tel: fax: [facility] Medical [address] [place] [address] Phone: tel: fax: Referral IDStaZane DateExpiration DateVisits RequestedVisits [id number] Encounter Details DateTypeDepartmentCare Team (Latest Contact Info)Uasdwdmhjyl87/19/2025 9:00 AM CSTAllied Health/Nurse Visit [address] 200 [facility] [place] [address] Christiano Rojas MD 420 [facility] [address] [place] [address] Injections (Xgeva Injection) Social History Tobacco UseTypesPacks/DayYears UsedDateSmoking Tobacco: FormerSmokeless Tobacco: Never Comments:quit age 28 Alcohol UseStandard Drinks/WeekCommentsNot Currently0 (1 standard drink = 0.6 oz pure alcohol)stopped ETOH 2014PHQ-2AnswerDate RecordedPHQ-2 Uqcla680 Adolescent EducationAnswerDate RecordedGetting School Help NeededNot on [...] in an abandoned building, in an overnight senior living, or couch-surfing.)Yes03/17/2024re you worried about losing your [...] ex-partner?Yes03/08/2024Sex and Gender InformationValueDate RecordedSex Assigned at ShezkIell82/20/2025 10:09 AM CSTLegal AuqWtlh77/04/2012 4:01 AM CSTGender LdvwvldtOxuz62/20/2025 10:08 AM CSTSexual QlttebmtrlcPbvjqaar08/20/2025 10:08 AM CSTOccupationIndustry Job Start DateJob End DateEncryption communication telephoneNot on fileNot on fileNot on filedocumented as of this encounter Nursing Notes * Eli Reyna CMA - 02/19/2025 9:00 AM CST Injection pt received: Xgeva Injection- R upper arm Tolerated injection without difficulties: Yes Observation needed: No RNATIONAL MARKETING EXECUTIVE documented in this encounter Plan of Treatment DateTypeDepartmentCare Team (Latest Contact Info)Lerecbabnrj52/27/2025 2:[address] [facility] [place] [address] [place] [address] Miko Dale PA-C [address] [place], [place] [address] [place] [address] Avulsion of skin of forearm, initial encounter (Primary Dx); Right elbow pain03/01/2025 2:00 PM CSTOffice Visit [facility] [address] [place] [address] [place] [address] [place] [address] 04/08/2025 10:15 AM CSTLab [facility] Laboratory [address] [place] [address] 04/09/2025 11:00 AM CSTOncology Visit [address] 200 [facility] [place] [address] Christiano Rojas MD [address] [place] [address] 04/09/2025 12:30 PM CSTAllied Health/Nurse Visit [address] 200 [facility] [place] [address] Christiano Rojas MD [address] [place] [address] 04/20/2025 9:20 AM CSTOffice Visit [facility] [address] [place] [phone] Pepe Sierra PA-C [address] [place] [address] documented as of this encounter Goals GoalPatient [...] not send urgent or symptomatic messages through [employer]. I will contact scheduling to arrange or make changes in my appointments. 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)$Given02/19/2025 8:49 AM WDA445 mgRight Armdocumented in this encounter Additional Health Concerns AssessmentNoted TimePHQ-9 Depression Total Score: 6003/17/2024 12:22 PM INTERNATIONAL MARKETING EXECUTIVE documented as of this encounter Care Teams Team MemberRelationshipSpecialtyStart [place] [address] [place] [address] PCP - GeneralFamily Mkqgrwfm91/18/25 Carolyn Bettencourt PA-C Physician AssistantHematology & Oncology03/11/24 Christiano Rojas MD [address] [place] [address] Hematology & Oncology03/11/24 Hannah Rosa PA-C [address] [place] [address] Assigned PCP03/26/24 Rupert Thorpe MD 420 [facility] [address] [place] [address] Assigned Surgical Provider04/26/24 Nikita Saini MD [address] [place] [address] MDCardiovascular Disease06/04/24 Pepe Sierra PA-C [address] [place], [place] [address] Assigned Heart and Vascular Provider08/24/24 Cookie Shay, RN Specialty Care CoordinatorHematology & Oncology10/15/24 Christiano Rojas MD 420 [facility] [address] [place] [address] Assigned Cancer Care Osmnuwfw89/23/25documented as of this encounter
--- OUTSIDE RECORDS SUMMARY | 2025-02-19 09:00 | XMS_ITS | Encounter Summary ---
Author Organization [place] Address [address] [place] [address] Care Team Providers Care Crumb Packer Name Role Phone Amrik Carolyn Lawson PA-C Unavailable Christiano Rojas MD Unavailable [phone] Hannah RosaC Unavailable [phone] Rupert Thorpe MD Unavailable Nikita Saini MD Unavailable [phone] Pepe SierraC Unavailable [phone] Cookie Shay RN Unavailable Unavailable Christiano Rojas MD Unavailable [phone] Ruben Marcano DO Primary Care Provider [phone] Reason for Visit * ReasonCommentsInjectionsXgeva Injection * Treatment and Therapy Plans (Routine) - Pending ReviewSpecialtyDiagnoses / ProceduresReferred By ContactReferred To ContactInfusion Therapy Diagnoses 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) Procedures ZZC DENOSUMAB INJECTION, 1 MG Christiano Rojas MD 420 [facility] 480 [place] [address] Phone: tel: fax: [facility] Medical [address] [place] [address] Phone: tel: fax: Referral IDStaZane DateExpiration DateVisits RequestedVisits [id number] Encounter Details DateTypeDepartmentCare Team (Latest Contact Info)Lxuohguxnxq71/19/2025 9:00 AM CSTAllied Health/Nurse Visit [address] [address] [facility] [place] [address] Christiano Rojas MD 420 [facility] [address] [place] [address] Injections (Xgeva Injection) Social History Tobacco UseTypesPacks/DayYears UsedDateSmoking Tobacco: FormerSmokeless Tobacco: Never Comments:quit age 28 Alcohol UseStandard Drinks/WeekCommentsNot Currently0 (1 standard drink = 0.6 oz pure alcohol)stopped ETOH 2014PHQ-2AnswerDate RecordedPHQ-2 Getxh948 Adolescent EducationAnswerDate RecordedGetting School Help NeededNot on [...] ex-partner?Yes03/08/2024Sex and Gender InformationValueDate RecordedSex Assigned at BmlzqQuob62/20/2025 10:09 AM CSTLegal ZjaGldi08/04/2012 4:01 AM CSTGender NvfccneaLavu87/20/2025 10:08 AM CSTSexual UzzoyjxlnbfKlteowmr32/20/2025 10:08 AM CSTOccupationIndustry Job Start DateJob End DateEncryption communication telephoneNot on fileNot on fileNot on filedocumented as of this encounter Nursing Notes * Eli Reyna CMA - 02/19/2025 9:00 AM CST Injection pt received: Xgeva Injection- R upper arm Tolerated injection without difficulties: Yes Observation needed: No MAINTENANCE TECHNICIAN documented in this encounter Plan of Treatment DateTypeDepartmentCare Team (Latest Contact Info)Znhebqwlwpg45/29/2025 2:00 PM CSTOffice Visit [address] [phone] [place] [address] [place] [address] 04/08/2025 10:15 AM CSTLab [facility] Laboratory [address] [place] [address] 04/09/2025 11:00 AM CSTOncology Visit M [address] [facility] [place] [address] Christiano Rojas MD [address] [address] 04/09/2025 12:30 PM CSTAllied Health/Nurse Visit M [address] [facility] [place] [address] Christiano Rojas MD [address] [address] 04/20/2025 9:20 AM CSTOffice Visit [facility] [address] [place] [address] [address] [place] [phone] Pepe Sierra PA-C [address] [place] [address] documented as of this encounter Goals GoalPatient [...] not send urgent or symptomatic messages through [employer] I will contact scheduling to arrange or make changes in my appointments. 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)$Given02/19/2025 8:49 AM DQX705 mgRight Armdocumented in this encounter Additional Health Concerns AssessmentNoted TimePHQ-9 Depression Total Score: 6003/17/2024 12:22 PM TOOL MAINTENANCE TECHNICIAN documented as of this encounter Care Teams Team MemberRelationshipSpecialtyStart [place] [address] [place] [address] PCP - GeneralFamily Wowacmxn77/18/25 Carolyn Bettencourt PA-C Physician AssistantHematology & Oncology03/11/24 Christiano Rojas MD 420 [facility] 480 [place] [address] MDHematology & Oncology03/11/24 Hannah Rosa PA-C [address] [place], [place] [address] Assigned PCP03/26/24 Rupert Thorpe MD 420 [facility] [address] [place] [address] Assigned Surgical Provider04/26/24 Nikita Saini MD 516 [place], [place] [address] MDCardiovascular Disease06/04/24 Pepe Sierra PA-C [address] [place] [address] Assigned Heart and Vascular Provider08/24/24 Cookie Shay, RN Specialty Care CoordinatorHematology & Oncology10/15/24 Christiano Rojas MD [address] [place] [address] 480 [place], [place] [address] Assigned Cancer Care Gjbzhmsv89/23/25documented as of this encounter
--- OUTSIDE RECORDS SUMMARY | 2025-02-27 12:24 | XMS_ITS | Clinical Summary ---
Author Organization [facility] r Address [address] [place] [address] Care Team Providers Care Technology Methodology Consultant Name Role Phone Unavailable Primary Care Provider Unavailabl e Social History Tobacco UseTypesPacks/DayYears UsedDateSmoking Tobacco: Never AssessedDomestic Violence ScreenAnswerDate RecordedPhysical Abuse SesrXryyhsm25/18/2024Verbal Abuse GddjJxhdylp15/18/2024Sex and Gender InformationValueDate RecordedSex Assigned at BirthNot on fileLegal WgnLgzy0903/21/2020 9:51 AM MSTGender Identity Not on fileSexual OrientationNot on file Plan of Treatment Health MaintenanceDue DateLast DoneCommentsPneumococcal 50+ (1 of 1 - PCV) 1986Zoster (1 of 2)1986Screening for Future Fall Risk2001RSV Vaccines (1 - 1-dose 75+ series)11/20/2011Depression Oqgdgdovi94/01/2025 Influenza (#1)2024OVID-19 Vaccine ( - 2023- season)2024Hepatitis AAged OutNo longer eligible based on patient's age to complete this topic Hepatitis BAged OutNo longer eligible based on patient's age to complete this topic Insurance
--- OUTSIDE RECORDS SUMMARY | 2025-02-27 12:24 | XMS_ITS | Encounter Summary ---
Author Organization [place] Address [address] [place] [address] Care Team Providers Care Case Reviewer Name Role Phone Amrik Carolyn Lawson PA-C Unavailable Christiano Rojas MD Unavailable [phone] Hannah RosaC Unavailable [phone] Rupert Thorpe MD Unavailable Nikita Saini MD Unavailable [phone] Pepe SierraC Unavailable [phone] Cookie Shay RN Unavailable Unavailable BobChristiano espinoza MD Unavailable [phone] Ruben Marcano DO Primary Care Provider [phone] Encounter Details DateTypeDepartmentCare Team (Latest Contact Info)Nndwxyqtshb87/18/2025Travel Social History Tobacco UseTypesPacks/DayYears UsedDateSmoking Tobacco: FormerSmokeless Tobacco: Never Comments:quit age 28 Alcohol UseStandard Drinks/WeekCommentsNot Currently0 (1 standard drink = 0.6 oz pure alcohol)stopped ETOH 2015PHQ-2AnswerDate RecordedPHQ-2 Stpab275 Adolescent EducationAnswerDate RecordedGetting School Help NeededNot on [...] in an abandoned building, in an overnight fdc, or couch-surfing.)Yes03/17/2024re you worried about losing your [...] ex-partner?Yes03/08/2024Sex and Gender InformationValueDate RecordedSex Assigned at DggicLjgk15/20/2025 10:09 AM CSTLegal VlxIdgj51/04/2012 4:01 AM CSTGender XtoyjgoyUqun22/20/2025 10:08 AM CSTSexual LvyknwwholqTpmxgyoz51/20/2025 10:08 AM CSTOccupationIndustry Job Start DateJob End DateEncryption communication telephoneNot on fileNot on fileNot on filedocumented as of this encounter Plan of Treatment DateTypeDepartmentCare Team (Latest Contact Info)Xhvqtxyuvnm75/27/2025 2:25 PM CSTOffice Visit [facility] [address] [place] [address] Miko Dale, REY [address] [place] [address] 644 [place] [address] Avulsion of skin of forearm, initial encounter (Primary Dx); Right elbow pain03/01/2025 2:00 PM CSTOffice Visit [facility] [address] [place] [phone] [place] [address] [place] [address] 04/08/2025 10:15 AM CSTLab [facility] Laboratory [address] [place] [address] 04/09/2025 11:00 AM CSTOncology Visit [address] 200 [facility] [place] [address] Christiano Rojas MD [address] [address] 04/09/2025 12:30 PM CSTAllied Health/Nurse Visit [facility] [address] [place] [address] [address] 200 [facility] [place] [address] Christiano Rojas MD [address] [address] 04/20/2025 9:20 AM CSTOffice Visit [facility] [address] [facility] [address] [place] [phone] Pepe Sierra PA-C [address] [place], [place] [address] documented as of this encounter Goals GoalPatient [...] not send urgent or symptomatic messages through [employer]. I will contact scheduling to arrange or make changes in my appointments. 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 documented as of this encounter Care Teams Team MemberRelationshipSpecialtyStart [place] [address] [place] [address] PCP - GeneralFamily Lszzrrri44/18/25 Carolyn Bettencourt PA-C Physician AssistantHematology & Oncology03/11/24 Christiano Rojas MD [address] [place] [phone] Hematology & Oncology03/11/24 Hannah Rosa PA-C [address] [place] [id number] Assigned PCP03/26/24 Rupert Thorpe MD [address] [address] Assigned Surgical Provider04/26/24 Nikita Saini MD 516 [place], [place] [address] MDCardiovascular Disease06/04/24 Pepe Sierra PA-C [address] [place], [place] [address] Assigned Heart and Vascular Provider08/24/24 Cookie Shay, RN Specialty Care CoordinatorHematology & Oncology10/15/24 Christiano Rojas MD [address] [place] [address] 480 [place], [place] [address] Assigned Cancer Care Zmlvwvvd10/23/25documented as of this encounter
--- OUTSIDE RECORDS SUMMARY | 2025-02-27 12:24 | XMS_ITS | Clinical Summary ---
Author Organization [facility] Address [address] [place] [address] Care Team Providers Care Director Online Marketing Name Role Phone Rowley Carolyn Lawson PA-C Unavailable Christiano Rojas MD Unavailable [phone] Hannah Rosa PA-C Unavailable [phone] Rupert Thorpe MD Unavailable Nikita Saini MD Unavailable [phone] Pepe Sierra PA-C Unavailable [phone] Cookie Shay RN Unavailable Unavailable BobChristiano espinoza MD Unavailable [phone] Ruben Marcano DO Primary Care Provider [phone] Allergies Active AllergyReactionsCriticalityNoted IulzOtlgksvxBsvdnymixNrarifj80/15/2025 HsbjuvfqcgMvcvLfi25/25/2012 Must use Paba-free sunscreen. Medications MedicationSigDispense QuantityRefillsLast FilledStart DateEnd DateStatus vitamin D3 (CHOLECALCIFEROL) 50 mcg (2000 units) tablet Take 1 tablet by mouth daily.Active furosemide (LASIX) 20 MG tablet Indications:Chronic systolic heart failure (H)Take 1 tablet (20 mg) by mouth every morning. 90 tablet 5Active apixaban ANTICOAGULANT (ELIQUIS) 5 MG tablet Indications:Persistent atrial fibrillation (H)Take 1 tablet (5 mg) by mouth 2 times daily. 180 tablet 5Active losartan (COZAAR) 25 MG tablet Indications:Chronic systolic heart failure (H)Take 1 tablet (25 mg) by mouth daily. 90 tablet 5Active metoprolol succinate ER (TOPROL XL) 25 MG 24 hr tablet Indications:Paroxysmal atrial fibrillation (H)Take 1 tablet (25 mg) by mouth every morning. 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 30 tablet 5Active ofloxacin (OCUFLOX) 0.3 % ophthalmic solution Indications:Acute bacterial conjunctivitis of both eyesPlace 1-2 drops into both eyes 4 times daily. 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 History of acute alcoholic hepatitis 01/201503/18/2024History of pulmonary embolism & DVT 06/[address] trip 03/18/2024History of elevated PSA - 2015 - [place] - (7.4) March 2022 03/18/2024Neuropathic pain, leg, right03/18/2024hronic gout without tophus, unspecified cause, unspecified site03/18/2024ute deep vein thrombosis (DVT) of calf muscle vein of left lower vrhveuofp36/14/2025Prostate tohaqg1203/06/2024 Pathologic vertebral edhowcac76/03/2025Paroxysmal atrial rwlqyrmjhhuq23/03/2025 Chronic hluqrnpjxcwkina08/03/2025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, initial iwifexkfr75/03/2025History of alcohol abuse Resolved Problems ProblemNoted DateDiagnosed DateResolved DateAcute xszunvoslufno40/22/2021 03/17/20248718Oirgrxsgzgigkigwhta41/22/202101/0031Ulksbtteoeigol49/21/2021 03/17/2024 Overview (08/23/2020): Added automatically from request for surgery [id number] Encounters DateTypeDepartmentCare CwprOktkrwkaqbt15/27/2025 2:25 PM CSTOffice Visit [facility] [address] [place] [address] Miko Dale, PASabinoC Avulsion of skin of forearm, initial encounter (Primary Dx); Right elbow pain02/27/20256504Zqzpjd78/19/2025 9:00 AM CSTAllied Health/Nurse Visit [address] [facility] [place] [phone] Christiano Rojas MD Injections (Xgeva Injection)02/19/2025 8:30 AM CSTOncology Visit [address] [facility] [place] [phone] Nigel Alicea PA Prostate cancer (H) (Primary Dx); 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, initial encounter 02/03/2025Telephone [facility] [address] [place] [phone] Hannah Rosa PA-C 01/14/2025Telephone [facility] [address] [place] [phone] Jennifer Saenz [facility] Oral Chemotherapy Management (Zytiga/)01/08/2025 11:15 AM CSTAllied Health/Nurse Visit [address] [facility] [place] [address] Christiano Rojas MD Allied Health Visit (INJECTION)01/08/2025 11:00 AM CSTOncology Visit [address] [facility] [place] [address] Christiano Rojas MD Prostate cancer (H) (Primary Dx); 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, initial encounter 12/30/2024 12:53 PM CDT - 12/30/2024 11:59 PM CDTHospital Encounter [facility] [address] [facility] [address] [place] [address] Christiano Rojas MD Discharge Disposition: Home or Self Care12/30/2024 9:12 AM CDT - 12/30/2024 12:52 PM CDTHospital Encounter [facility] [address] [facility] [address] [place] [address] Christiano Rojas MD Prostate cancer (H); 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); 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, initial encounter; Acute deep vein thrombosis (DVT) of calf muscle vein of left lower extremity (H) Discharge Disposition: Home or Self Care12/30/2024 9:03 AM CDT - 12/30/2024 9:11 AM CDTHospital Encounter [facility] [address] [facility] [address] [place] [address] Christiano Rojas MD Prostate cancer (H); 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, initial encounter from Last 3 Months Immunizations ImmunizationAdministration DatesNext DueInfluenza (High Dose) Trivalent,PF (Fluzone)12/13/2023,11/13/2015,11/28/2014,11/22/2013,12/30/2012Pneumo Conj 13-V (2010&after)01/03/2015,12/31/2014Pneumococcal 23 kwjqmf7301/18/2010,03/04/2002RSV Vaccine (Arexvy)12/25/2022TDAP (Adacel,Boostrix)03/26/2023,07/01/2018Td (Adult), Vaqsypuu24/01/2007,05/11/1996Zoster Vaccine, Unspecified (historical)07/01/2018 Zoster vaccine, live11/28/2014 Social History Tobacco UseTypesPacks/DayYears UsedDateSmoking Tobacco: FormerSmokeless Tobacco: Never Tobacco Cessation:Counseling Given: Not Answered Comments:quit age 28 Alcohol UseStandard Drinks/WeekCommentsNot Currently0 (1 standard drink = 0.6 oz pure alcohol)stopped ETOH 2014PHQ-2AnswerDate RecordedPHQ-2 Wjbji617 Adolescent EducationAnswerDate RecordedGetting School Help NeededNot on [...] in an abandoned building, in an overnight residential, or couch-surfing.)Yes03/17/2024re you worried about losing your [...] ex-partner?Yes03/08/2024Sex and Gender InformationValueDate RecordedSex Assigned at JvuakGvuh97/20/2025 10:09 AM CSTLegal KgtYwsw45/04/2012 4:01 AM CSTGender VpnwyvpeHrvj82/20/2025 10:08 AM CSTSexual RgtmlwxfwxrGivrsiin36/20/2025 10:08 AM CSTOccupationIndustry Job Start DateJob End DateEncryption communication telephoneNot on fileNot on fileNot on file Last Filed Vital Signs Vital SignReadingTime TakenCommentsBlood Hxbrtasm887/5802/27/2025 11:23 AM DIRECTOR OF INTERCOLLEGIATE ATHLETICS Sdjyr646802/27/2025 11:23 AM HHZTdidmmocxft70.2 ??C (97.1 ??F)02/19/2025 8:19 AM CSTRespiratory Kluo162004/30/2024 11:23 AM CSTOxygen Yvlzuggpih37%02/27/2025 11:23 AM CSTInhaled Oxygen Concentration--Hzwwbk73.1 kg (181 lb)02/27/2025 11:23 AM QGBJispph111.7 cm (5' 8)02/27/2025 11:23 AM CSTBody Mass Index27.5202/27/2025 11:23 AM DIRECTOR OF INTERCOLLEGIATE ATHLETICS Plan of Treatment DateTypeDepartmentCare Team (Latest Contact Info)Qfakgwvmsqx80/27/2025 2:25 PM CSTOffice Visit [facility] [address] [place] [address] Miko Dale PA-C [address] [place] [address] [address] [place] [address] Avulsion of skin of forearm, initial encounter (Primary Dx); Right elbow pain03/01/2025 2:[address] [address] [place] [address] [place] [address] [place] [address] 04/08/2025 10:[address] [facility] [address] [place] [phone] 04/09/2025 11:00 AM CSTOncology Visit [facility] [address] [place] [address] [address] [facility] [place] [place] [phone] Christiano Rojas MD [address] [phone] 04/09/2025 12:30 PM CSTAllied Health/Nurse Visit [facility] [address] [facility] [place] [address] Christiano Rojas MD [address] [address] 04/20/2025 9:20 AM CSTOffice Visit [facility] [address] [facility] [address] [place] [phone] Pepe Sierra PA-C [address] [place], [place] [phone] Health MaintenanceDue DateLast DoneCommentsADVANCE CARE WOAERZKJ39/18/1937HF ACTION PLAN1936ZOSTER VACCINE (1 of 2), 11/28/2014 MEDICARE ANNUAL WELLNESS VISIT, 06/24/2014, 10/02/2012NNUAL REVIEW OF HM ZBLCHM60FALL RISK FMAUSSSVCI08 COVID-19 VACCINE (9 - Pfizer risk season)/03/2024, 12/13/2023, 01/17/2023, Additional history fynsltOOK75//, 01/07/2025, 2024, Additional history syxqnxNOHWL31/8/LT , 01/07/2025, 2024, Additional history existsCBC , 01/07/2025, 2024, Additional history exists DTAP/TDAP/TD VACCINE (3 - Td or Tdap)4003/26/2023, 07/01/2018, 09/01/2006, Additional history existsPNEUMOCOCCAL VACCINE 50+ YEARSCompleted 01/03/2015, 12/31/2014, 01/18/2010, Additional history existsRSV VACCINE Mzbrxcplw61/24/2023HQ-2 (once per calendar year)Mhtpbnkpd05/23/2025, 03/17/2024, 03/17/2024TSH W/FREE T4 SQNVQSZshoqhrcd45/18/2025INFLUENZA VACCINE Bdddfkkqa44/01/2025, 12/13/2023, 11/13/2015, Additional history existsHPV VACCINE (No Doses Required)CompletedMENINGITIS VACCINEAged OutNo longer eligible based on patient's age to complete this topic Goals GoalPatient Goal TypeAssociated ProblemsRecent ProgressPatient-Stated?Author Other Viky Haque, RN Note: Goal Statement: I will use [...] not send urgent or symptomatic messages through [employer]. I will contact scheduling to arrange or make changes in my appointments. 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, initial encounter Acute deep vein thrombosis (DVT) of calf muscle vein of left lower extremity (H) D DIMER DEZEROYZOFUCGtoryee49/18/2025 10:04 AM DIRECTOR OF INTERCOLLEGIATE ATHLETICS Prostate cancer (H) 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, initial encounter Acute deep vein thrombosis (DVT) of calf muscle vein of left lower extremity (H) TESTOSTERONE QLABPUfzsaqq24/18/2025 10:04 AM DIRECTOR OF INTERCOLLEGIATE ATHLETICS Prostate cancer (H) 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, initial encounter Acute deep vein thrombosis (DVT) of calf muscle vein of left lower extremity (H) PSA IHBHVWULEXDpfyrks94/18/2025 10:04 AM DIRECTOR OF INTERCOLLEGIATE ATHLETICS Prostate cancer (H) 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, initial encounter Acute deep vein thrombosis (DVT) of calf muscle vein of left lower extremity (H) COMPREHENSIVE METABOLIC SPTOVKoakzfi58/18/2025 10:04 AM DIRECTOR OF INTERCOLLEGIATE ATHLETICS Prostate cancer (H) 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, initial encounter Acute deep vein thrombosis (DVT) of calf muscle vein of left lower extremity (H) OLIXDQZERYUcicmzj88/18/2025 10:04 AM DIRECTOR OF INTERCOLLEGIATE ATHLETICS Prostate cancer (H) 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, initial encounter CBC WITH PLATELETS & WJNBNDZTGCLRXbctqfn55/06/2025 10:33 AM DIRECTOR OF INTERCOLLEGIATE ATHLETICS Prostate cancer (H) 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, initial encounter Acute deep vein thrombosis (DVT) of calf muscle vein of left lower extremity (H) CBC WITH PLATELETS AND XKVXSMGUAPFRUktguvy69/06/2025 10:33 AM DIRECTOR OF INTERCOLLEGIATE ATHLETICS Prostate cancer (H) 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, initial encounter Acute deep vein thrombosis (DVT) of calf muscle vein of left lower extremity (H) D DIMER TPZGGPXDJXZFLvjxucs65/06/2025 10:33 AM DIRECTOR OF INTERCOLLEGIATE ATHLETICS Prostate cancer (H) 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, initial encounter Acute deep vein thrombosis (DVT) of calf muscle vein of left lower extremity (H) TESTOSTERONE IQLSUEqozgqs63/06/2025 10:33 AM DIRECTOR OF INTERCOLLEGIATE ATHLETICS Prostate cancer (H) 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, initial encounter Acute deep vein thrombosis (DVT) of calf muscle vein of left lower extremity (H) PSA AORWJZPMWTUjfcidg66/06/2025 10:33 AM DIRECTOR OF INTERCOLLEGIATE ATHLETICS Prostate cancer (H) 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, initial encounter Acute deep vein thrombosis (DVT) of calf muscle vein of left lower extremity (H) COMPREHENSIVE METABOLIC OGGKICqngtmb29/06/2025 10:33 AM DIRECTOR OF INTERCOLLEGIATE ATHLETICS Prostate cancer (H) 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, initial encounter Acute deep vein thrombosis (DVT) of calf muscle vein of left lower extremity (H) SBNKRXZIGEJiclgac73/06/2025 10:33 AM DIRECTOR OF INTERCOLLEGIATE ATHLETICS Prostate cancer (H) 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, initial encounter NM BONE SCAN WHOLE GSESKumyjmq48/29/2025 1:37 PM CDT Prostate cancer (H) 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, initial encounter Acute deep vein thrombosis (DVT) of calf muscle vein of left lower extremity (H) CT CHEST/ABDOMEN/PELVIS W OHPWOWVYPmizhbg60/29/2025 9:50 AM CDT Prostate cancer (H) 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 ComponentValueRef RangeTest MethodAnalysis TimePerformed AtPathologist Signature WBC Count9.304.00 - 11.00 10e3/uL02/18/2025 10:13 AM CSTLV LABORATORYRBC Count 4.37(L)4.40 - 5.90 10e6/uL02/18/2025 10:13 AM CSTLV BVBPYCOXEWXptswkuxaw85.413.3 - 17.7 g/dL02/18/2025 10:13 AM CSTLV OSZDQSPZBTZdnsjasclk94.140.0 - 53.0 % 02/18/2025 10:13 AM CSTLV OACIJEGOXNFFR94.678.0 - 100.0 fL02/18/2025 10:13 AM CSTLV DIYHYHHZSGBIA95.026.5 - 33.0 pg02/18/2025 10:13 AM CSTLV LABORATORYMCHC 33.431.5 - 36.5 g/dL02/18/2025 10:13 AM CSTLV TOTFVUHAZVBFV19.810.0 - 15.0 % 02/18/2025 10:13 AM CSTLV LABORATORYPlatelet Zguve813(L)150 - 450 10e3/uL 02/18/2025 10:13 AM CSTLV LABORATORY% Bwtatlojztu03.3%02/18/2025 10:13 AM CSTLV LABORATORY% Yncbdzdntul39.6%02/18/2025 10:13 AM CSTLV LABORATORY% Dtmpavahu79.5% 02/18/2025 10:13 AM CSTLV LABORATORY% Eosinophils2.0%02/18/2025 10:13 AM CSTLV LABORATORY% Basophils0.4%02/18/2025 10:13 AM CSTLV LABORATORY% Immature Granulocytes0.2%02/18/2025 10:13 AM CSTLV LABORATORYAbsolute Neutrophils7.081.60 - 8.30 10e3/uL02/18/2025 10:13 AM CSTLV LABORATORYAbsolute Lymphocytes0.990.80 - 5.30 10e3/uL02/18/2025 10:13 AM CSTLV LABORATORYAbsolute Monocytes0.980.00 - 1.30 10e3/uL02/18/2025 10:13 AM CSTLV LABORATORYAbsolute Eosinophils0.190.00 - 0.70 10e3/uL02/18/2025 10:13 AM CSTLV LABORATORYAbsolute Basophils0.040.00 - 0.20 10e3/uL02/18/2025 10:13 AM CSTLV LABORATORYAbsolute Immature Granulocytes <0.04<=0.40 10e3/uL02/18/2025 10:13 AM CSTLV LABORATORYSpecimen (Source) Anatomical Location / LateralityCollection Method / VolumeCollection Time Received TimeBloodBLOOD SPECIMEN / UnknownVenipuncture / Kjlkqqq2202/18/2025 10:04 AM CST02/18/2025 10:04 AM DIRECTOR OF INTERCOLLEGIATE ATHLETICS Narrative Authorizing ProviderResult TypeResult StatusGaalexis Rojas MDLAB - BLOOD ORDERABLESFinal ResultPerforming OrganizationAddressCity/State/ZIP CodePhone Number LABORATORY [facility] [address] [facility] (no room number, 1st floor of clinic) [place] [address], [facility] * (ABNORMAL) Testosterone total (02/18/2025 10:04 AM DIRECTOR OF INTERCOLLEGIATE ATHLETICS) Only the most recent of2 resultswithin the time period is included. ComponentValueRef RangeTest MethodAnalysis TimePerformed AtPathologist Signature Testosterone Total<2(L)240 - 950 ng/dL02/21/2025 11:01 AM CSTUM SPECIAL [...] Unknown 02/18/2025 10:04 AM CST02/18/2025 10:04 AM DIRECTOR OF INTERCOLLEGIATE ATHLETICS Narrative [facility] - 02/21/2025 11:01 AM DIRECTOR OF INTERCOLLEGIATE ATHLETICS This test was developed and its performance characteristics determined by the [facility], Special Chemistry Laboratory. It has not [...] [facility] [address] [facility], [address] [phone] * PSA tumor marker (02/18/2025 10:04 AM DIRECTOR OF INTERCOLLEGIATE ATHLETICS) Only the most recent of2 resultswithin the time period is included. ComponentValueRef RangeTest MethodAnalysis TimePerformed AtPathologist Signature PSA Monitoring0.07<=7.20 ng/mL02/19/2025 4:42 AM CSTUU LABORATORYSpecimen (Source)Anatomical Location / LateralityCollection Method / VolumeCollection TimeReceived TimeBloodBLOOD SPECIMEN / UnknownVenipuncture / Mlfighb6402/18/2025 10:04 AM CST02/18/2025 10:04 AM DIRECTOR OF INTERCOLLEGIATE ATHLETICS Narrative [facility] - 02/19/2025 4:42 AM DIRECTOR OF INTERCOLLEGIATE ATHLETICS This result is obtained using the Dwayne [...] J Urol. 2016;195(2):330-336. doi:10.1016/j.juro.2015.08.080 Authorizing ProviderResult TypeResult StatusChristiano Rojas MDLAB - BLOOD ORDERABLESFinal ResultPerforming OrganizationAddressCity/State/ZIP CodePhone Number U LABORATORY [facility] [address] [facility], Room [address] [place] [phone] * Phosphorus (02/18/2025 10:04 AM DIRECTOR OF INTERCOLLEGIATE ATHLETICS) Only the most recent of2 resultswithin the time period is included. ComponentValueRef RangeTest MethodAnalysis TimePerformed AtPathologist Signature Phosphorus2.62.5 - 4.5 mg/dL02/19/2025 3:49 AM CSTUU LABORATORYSpecimen (Source) Anatomical Location / LateralityCollection Method / VolumeCollection Time Received TimeBloodBLOOD SPECIMEN / UnknownVenipuncture / Okfpwkg6002/18/2025 10:04 AM CST02/18/2025 10:04 AM DIRECTOR OF INTERCOLLEGIATE ATHLETICS Narrative Authorizing ProviderResult TypeResult StatusChristiano Rojas MDLAB - BLOOD ORDERABLESFinal ResultPerforming OrganizationAddressCity/State/ZIP CodePhone Number [facility] [address] [facility], [address] [place] [address], [facility] * (ABNORMAL) D dimer quantitative (02/18/2025 10:04 AM DIRECTOR OF INTERCOLLEGIATE ATHLETICS) Only the most recent of2 resultswithin the time period is included. ComponentValueRef RangeTest MethodAnalysis TimePerformed AtPathologist Signature D-Dimer Quantitative0.82(H)0.00 - 0.50 ug/mL FEU104/21/2024 1:32 PM CSTOX LABORATORYSpecimen (Source)Anatomical Location / LateralityCollection Method / VolumeCollection TimeReceived TimeBloodBLOOD SPECIMEN / UnknownVenipuncture / Ozkbuqc3302/18/2025 10:04 AM CST02/18/2025 10:04 AM DIRECTOR OF INTERCOLLEGIATE ATHLETICS Narrative [facility] - 02/18/2025 1:32 PM DIRECTOR OF INTERCOLLEGIATE ATHLETICS This D-dimer assay is intended for use [...] pulmonary embolism: The ADJUST-PE Study. JOSE ARMANDO 2014;311:5763-1120.; LUCAS Brown et al. Diagnostic accuracy of conventional or age adjusted D-dimer cutoff values in older patients with suspected venous thromboembolism. Systemic review and meta- analysis. BMJ 2013:346:f2492. Authorizing ProviderResult TypeResult StatusGautam Ubaldo Rojas MDLAB - BLOOD ORDERABLESFinal ResultPerforming OrganizationAddressCity/State/ZIP CodePhone Number OX LABORATORY [facility] [address] Lab (no room number, 1st floor of clinic) [place] [address], [facility] * (ABNORMAL) Comprehensive metabolic panel (02/18/2025 10:04 AM DIRECTOR OF INTERCOLLEGIATE ATHLETICS) Only the most recent of2 resultswithin the time period is included. ComponentValueRef RangeTest MethodAnalysis TimePerformed AtPathologist Signature Trzbos494539 - 145 mmol/L104/22/2024 3:49 AM CSTUU LABORATORYPotassium4.53.4 - 5.3 mmol/L104/22/2024 3:49 AM CSTUU LABORATORYCarbon Dioxide (CO2)2922 - 29 mmol/L104/22/2024 3:49 AM CSTUU LABORATORYAnion Tdz263 - 15 mmol/L104/22/2024 3:49 AM CSTUU LABORATORYUrea Lankyjkj54.58.0 - 23.0 mg/dL02/19/2025 3:49 AM CSTUU LABORATORYCreatinine1.53(H)0.67 - 1.17 mg/dL02/19/2025 3:49 AM CSTUU LABORATORY GFR Tijbxbgp48(L)>60 mL/min/1.84g88702/19/2025 3:49 AM CSTUU LABORATORYComment: eGFR calculated using 2020 CKD-EPI equation.Calcium9.38.8 - 10.4 mg/dL02/19/2025 3:49 AM CSTUU SDPJVSQAMRSratpsvx27587 - 107 mmol/L104/22/2024 3:49 AM CSTUU QEEWIZNFDWFvvwhez789(H)70 - 99 mg/dL02/19/2025 3:49 AM CSTUU LABORATORYAlkaline Lsaftawdgfn96969 - 150 U/L104/22/2024 3:49 AM CSTUU VNMWPLEDQGQNX913 - 45 U/L 02/19/2025 3:49 AM CSTUU ASWGMTRYMUFSW220 - 70 U/L104/22/2024 3:49 AM CSTUU LABORATORYProtein Total6.46.4 - 8.3 g/dL02/19/2025 3:49 AM CSTUU LABORATORY Albumin3.3(L)3.5 - 5.2 g/dL02/19/2025 3:49 AM CSTUU LABORATORYBilirubin Total1.5 (H)<=1.2 mg/dL02/19/2025 3:49 AM CSTUU LABORATORYSpecimen (Source)Anatomical Location / LateralityCollection Method / VolumeCollection TimeReceived TimeBlood BLOOD SPECIMEN / UnknownVenipuncture / Pecdgnl6802/18/2025 10:04 AM CST02/18/2025 10:04 AM DIRECTOR OF INTERCOLLEGIATE ATHLETICS Narrative Authorizing ProviderResult TypeResult StatusGautam Ubaldo Rojas MDLAB - BLOOD ORDERABLESFinal ResultPerforming OrganizationAddressCity/State/ZIP CodePhone Number UU LABORATORY [facility] [address] [facility], [address] [place] [address], [facility] * NM Bone Scan Whole Body (12/30/2024 1:37 PM CDT)Anatomical RegionLaterality ModalityWhole Body, SUBRAD CT BODY, UMP NUC MEDNuclear MedicineSpecimen (Source)Anatomical Location / LateralityCollection Method / VolumeCollection TimeReceived Time12/30/2024 1:37 PM CDT Impressions 12/31/2024 7:05 AM CDT IMPRESSION: 1. ??Multifocal osteoblastic metastatic disease. 2. ??Comparison to prior PET is limited due to differences in modalities. The burden of metastatic disease demonstrated by bone scan is less than that demonstrated by prior PET. This bone scan can serve as a baseline for future follow-up. Narrative 12/31/2024 7:05 AM CDT EXAM: NM BONE SCAN WHOLE BODY LOCATION: [facility] DATE: 12/30/2024 INDICATION: Restaging ?? bony metastasis. Metastatic prostate cancer. COMPARISON: [facility] PET/CT 05/01/2024. TECHNIQUE: 25.0 mCi technetium-99m MDP, IV. Anterior and posterior delayed whole-body images at 3 hours with additional spot images of the skull. FINDINGS: Abnormal heterogeneous radiotracer uptake involving the spine, ribs, and sternum compatible with osteoblastic metastatic disease. There is mild focal radiotracer uptake of the bilateral proximal femurs compatible with osteoblastic metastatic disease. Degenerative uptake of the bilateral shoulders, wrists, hips, and feet. Soft tissue uptake is maintained. Both kidneys are visualized. Procedure Note Cristhian Felix MD - 12/31/2024 EXAM: NM BONE SCAN WHOLE BODY LOCATION: [facility] DATE: 12/30/2024 INDICATION: Restaging bony metastasis. Metastatic prostate cancer. COMPARISON: [facility] PET/CT 05/01/2024. TECHNIQUE: 25.0 mCi technetium-99m MDP, IV. Anterior and posterior delayedwhole- body images at 3 hours with additional spot images of the skull. FINDINGS: Abnormal heterogeneous radiotracer uptake involving the spine,ribs, and sternum compatible with osteoblastic metastatic disease. Thereis mild focal radiotracer uptake of the bilateral proximal femurscompatible with osteoblastic metastatic disease. Degenerative uptake of the bilateral shoulders, wrists, hips, and feet.Soft tissue uptake is maintained. Both kidneys are visualized. IMPRESSION: 1. Multifocal osteoblastic metastatic disease. 2. Comparison to prior PET is limited due to differences in modalities.The burden of metastatic disease demonstrated by bone scan is less thanthat demonstrated by prior PET. This bone scan can serve as a baseline forfuture follow-up. Authorizing ProviderResult TypeResult StatusGautakimani Rojas [facility] ORDERABLESFinal Result * CT Chest/Abdomen/Pelvis w Contrast (12/30/2024 9:50 AM CDT)Anatomical Region LateralityModalityAbdomen/Pelvis, Chest, SUBRAD CT BODY, UMP CT CHEST, UMP CT ABDOMEN PELVIS, RAD CTComputed TomographySpecimen (Source)Anatomical Location / LateralityCollection Method / VolumeCollection TimeReceived Time12/30/2024 9:50 AM CDT Impressions 12/30/2024 3:58 PM CDT IMPRESSION: 1. ??Diffuse sclerotic osseous metastatic disease throughout the imaged axial and appendicular skeleton. 2. ??Interval decrease in size of previously seen enlarged right pelvic sidewall lymph node and distal right paraesophageal lymph node. No new or enlarging lymph nodes in the chest, abdomen, or pelvis. 3. ??Interval decrease in size of the prostate gland, which remains heterogenous. 4. ??Trace bilateral pleural fluid. 5. ??Minimal endobronchial debris and left basilar opacity, favoring atelectasis. 6. ??Nodular contour of the liver, raising the possibility of cirrhosis. 7. ??Distal paraesophageal varices, suggestive of portal venous hypertension. No splenomegaly or ascites. 8. ??Nonspecific enhancing nodule posterior to the left thyroid lobe, which could represent an exophytic thyroid nodule, parathyroid adenoma, or thoracic adenopathy. 9. ??Severe coronary atherosclerosis. 10. ??Additional nonacute findings as above. Narrative 12/30/2024 3:58 PM CDT EXAM: CT CHEST/ABDOMEN/PELVIS W CONTRAST LOCATION: [facility] DATE: 12/30/2024 INDICATION: Recently diagnosed (Mar 2024) prostate cancer with bulky metastatic disease on abiraterone with prednisone. COMPARISON: 03/06/2024, 08/23/2020. TECHNIQUE: CT scan of the chest, abdomen, and pelvis was performed following injection of IV contrast. Multiplanar reformats were obtained. Dose reduction techniques were used. CONTRAST: 96 mL Omnipaque 350 FINDINGS: LUNGS AND PLEURA: Minimal bilateral pleural effusions are present. Minimal endobronchial debris in the lung bases with suspected atelectasis and/or scarring, most notable in the left lower lobe. Emphysematous changes in the right upper lobe. Large airways are patent. MEDIASTINUM/AXILLAE: Heart size is borderline enlarged. No pericardial fluid. Thoracic aorta is normal in course and caliber. Moderate thoracic aortic atherosclerosis present. There is a prominent distal right paraesophageal lymph node measuring 10 mm in short axis (4-71), which has decreased in size in the interim, previously measuring up to 14 mm. There is a nodular enhancing solid lesion along the posterior aspect of the left thyroid lobe measuring 20 x 15 mm (4-23), which is nonspecific. CORONARY ARTERY CALCIFICATION: Severe. HEPATOBILIARY: Mild low-attenuation of the liver parenchyma, likely secondary to phase of enhancement and/or fatty infiltration. Mild nodular contour of the liver, consistent with cirrhosis. Gallbladder is absent. Minimal pneumobilia at the hilum of the liver. No suspicious-appearing hepatic observations. PANCREAS: Normal. SPLEEN: Spleen is normal in size. No splenomegaly. ADRENAL GLANDS: Normal. KIDNEYS/BLADDER: Bilateral simple appearing renal cysts. No follow-up is necessary. No solid enhancing renal mass. No nephrolithiasis or hydronephrosis. No urinary bladder wall thickening. BOWEL: Diverticulosis of the colon. No acute inflammatory change. No obstruction. LYMPH NODES: A previously seen 12 x 9 mm lymph node along the right pelvic sidewall has decreased in size in the interim, now measuring 4 mm (4-256). No new or enlarging lymph nodes in the abdomen orpelvis. VASCULATURE: There are small distal paraesophageal varices noted. Moderate severe atherosclerosis of the abdominal aorta and branch vessels. No aneurysmal dilation. PELVIC ORGANS: Interval decrease in size of the prostate gland, which remains heterogenous. MUSCULOSKELETAL: Multilevel hypertrophic and degenerative changes of the spine are present. Diffusesclerotic osseous disease is seen throughout the axial and appendicular skeleton. No findings specific for acute pathologic fracture. Procedure Note Kade Harvey, DO - 12/30/2024 EXAM: CT CHEST/ABDOMEN/PELVIS W CONTRAST LOCATION: [facility] DATE: 12/30/2024 INDICATION: Recently diagnosed (Mar 2024) prostate cancer with bulkymetastatic disease on abiraterone with prednisone. COMPARISON: 03/06/2024, 08/23/2020. TECHNIQUE: CT scan of the chest, abdomen, and pelvis was performedfollowing injection of IV contrast. Multiplanar reformats were obtained.Dose reduction techniques were used. CONTRAST: 96 mL Omnipaque 350 FINDINGS: LUNGS AND PLEURA: Minimal bilateral pleural effusions are present. Minimal endobronchial debris in the lung bases with suspected atelectasis and/or scarring, most notable in the left lower lobe. Emphysematous changes inthe right upper lobe. Large airways are patent. MEDIASTINUM/AXILLAE: Heart size is borderline enlarged. No pericardialfluid. Thoracic aorta is normal in course and caliber. Moderate thoracicaortic atherosclerosis present. There is a prominent distal rightparaesophageal lymph node measuring 10 mm in short axis (4-71), which has decreased in size in the interim, previously measuring up to 14 mm. There is a nodular enhancing solid lesion along the posterior aspect of the left thyroid lobe measuring 20 x 15 mm (4-23),which is nonspecific. CORONARY ARTERY CALCIFICATION: Severe. HEPATOBILIARY: Mild low-attenuation of the liver parenchyma, likelysecondary to phase of enhancement and/or fatty infiltration. Mild nodularcontour of the liver, consistent with cirrhosis. Gallbladder is absent.Minimal pneumobilia at the hilum of the liver. No suspicious-appearing hepatic observations. PANCREAS: Normal. SPLEEN: Spleen is normal in size. No splenomegaly. ADRENAL GLANDS: Normal. KIDNEYS/BLADDER: Bilateral simple appearing renal cysts. No follow-up is necessary. No solid enhancing renal mass. No nephrolithiasis orhydronephrosis. No urinary bladder wall thickening. BOWEL: Diverticulosis of the colon. No acute inflammatory change. Noobstruction. LYMPH NODES: A previously seen 12 x 9 mm lymph node along the right pelvic sidewall has decreased in size in the interim, now measuring 4 mm (4-256).No new or enlarging lymph nodes in the abdomen or pelvis. VASCULATURE: There are small distal paraesophageal varices noted. Moderatesevere atherosclerosis of the abdominal aorta and branch vessels. Noaneurysmal dilation. PELVIC ORGANS: Interval decrease in size of the prostate gland, whichremains heterogenous. MUSCULOSKELETAL: Multilevel hypertrophic and degenerative changes of thespine are present. Diffuse sclerotic osseous disease is seen throughoutthe axial and appendicular skeleton. No findings specific for acutepathologic fracture. IMPRESSION: 1. Diffuse sclerotic osseous metastatic disease throughout the imagedaxial and appendicular skeleton. 2. Interval decrease in size of previously seen enlarged right pelvicsidewall lymph node and distal right paraesophageal lymph node. No new orenlarging lymph nodes in the chest, abdomen, or pelvis. 3. Interval decrease in size of the prostate gland, which remainsheterogenous. 4. Trace bilateral pleural fluid. 5. Minimal endobronchial debris and left basilar opacity, favoringatelectasis. 6. Nodular contour of the liver, raising the possibility of cirrhosis. 7. Distal paraesophageal varices, suggestive of portal venoushypertension. No splenomegaly or ascites. 8. Nonspecific enhancing nodule posterior to the left thyroid lobe, whichcould represent an exophytic thyroid nodule, parathyroid adenoma, orthoracic adenopathy. 9. Severe coronary atherosclerosis. 10. Additional nonacute findings as above. Authorizing ProviderResult TypeResult StatusGautam Ubaldo Rojas MDG CT ORDERABLESFinal Result * (ABNORMAL) Creatinine POCT (12/30/2024 9:23 AM CDT)ComponentValueRef RangeTest MethodAnalysis TimePerformed AtPathologist SignatureCreatinine POCT1.4(H)0.7 - 1.2 mg/dL12/30/2024 9:26 AM CDTRH LABORATORY POCGFR, ESTIMATED POCT48(L)>60 mL/min/1.29z43412/30/2024 9:26 AM CDTR LABORATORY POCComment:eGFR calculated using 2020 CKD-EPI equation.Specimen (Source)Anatomical Location / Laterality Collection Method / VolumeCollection TimeReceived TimeBloodBLOOD SPECIMEN / Hqvcwpy8712/30/2024 9:23 AM CDT1 9:26 AM CDT Narrative Authorizing ProviderResult TypeResult StatusChristiano TIDWELL POCTFinal ResultPerforming OrganizationAddressCity/State/ZIP CodePhone Number LABORATORY [facility] [address] [facility] Lab (1st floor, no room number) [place] [address] * TSH with free T4 reflex (2024 11:57 AM CDT)ComponentValueRef RangeTest MethodAnalysis TimePerformed AtPathologist SignatureTSH1.320.30 - 4.20 uIU/mL 2024 10:41 PM CDTUU LABORATORYSpecimen (Source)Anatomical Location / LateralityCollection Method / VolumeCollection TimeReceived TimeBloodBLOOD SPECIMEN / UnknownVenipuncture / Odimvux4711/19/2024 11:57 AM CDT2024 11:57 AM CDT Narrative Authorizing ProviderResult TypeResult StatusRufina MEDRANO - BLOOD ORDERABLESFinal ResultPerforming OrganizationAddressCity/State/ZIP CodePhone Number LABORATORY [facility] [address] [facility], [address] [place] [address] * (ABNORMAL) Lipid panel reflex to direct LDL Non-fasting (10/06/2024 10:48 AM CDT)ComponentValueRef RangeTest MethodAnalysis TimePerformed AtPathologist HqkutuwclDuhreqqikyy663(H)<200 mg/dL10/07/2024 3:14 AM CDTUU LABORATORY Rnyhcibewwdxf515(H)<150 mg/dL10/07/2024 3:14 AM CDTUU LABORATORYDirect Measure HDL74>=40 mg/dL10/07/2024 3:14 AM CDTUU LABORATORYLDL Cholesterol Calculated 102(H)<100 mg/dL10/07/2024 3:14 AM CDTUU LABORATORYComment:LDL calculated using the Friedewald equation.Non HDL Hyzoeckbjbl627(H)<130 mg/dL10/07/2024 3:14 AM CDTUU LABORATORYPatient Fasting > 8hrs?No10/07/2024 3:14 AM CDTUU LABORATORYSpecimen (Source)Anatomical Location / LateralityCollection Method / VolumeCollection TimeReceived TimeBloodBLOOD SPECIMEN / UnknownVenipuncture / Dgmqlxl2910/06/2024 10:48 AM CDT10/06/2024 10:48 AM CDT Narrative [facility] LAB[facility]ATORY - 10/07/2024 3:14 AM CDT Cholesterol Desirable: < 200 mg/dL Borderline High: 200 - 239 mg/dL High: >= 240 mg/dL Triglycerides Normal: < 150 mg/dL Borderline High: 150 - 199 mg/dL High: 200-499 mg/dL Very High: >= 500 mg/dL Direct Measure HDL Female: >= 50 mg/dL Male: >= 40 mg/dL LDL Cholesterol Desirable: < 100 mg/dL Above Desirable: 100 - 129 mg/dL Borderline High: 130 - 159 mg/dL High: ??160 - 189 mg/dL Very High: >= 190 mg/dL Non HDL Cholesterol Desirable: < 130 mg/dL Above Desirable: 130 - 159 mg/dL Borderline High: 160 - 189 mg/dL High: 190 - 219 mg/dL Very High: >= 220 mg/dL Authorizing ProviderResult TypeResult StatusLaura Eleonora MEDRANO - BLOOD ORDERABLESFinal ResultPerforming OrganizationAddressCity/State/ZIP CodePhone Number UU LABORATORY [facility] [address] [facility] [address] [facility], [address] [place] [address], [facility] from Last 3 Months or Most Recently Relevant to Health Maintenance Insurance [employer] Address: [facility] [address] [place] [address] [employer] Address: [facility] [employer] [facility] [address] [place] [address] Advance Directives For more information, please contact: [phone] * No CPR- Do NOT Intubate (Latest Code Status on File) Date ActivatedDate InactivatedComments1/05/2024 6:33 AM03/10/2024 4:52 PMNO basic or advanced life-sustaining interventions are performedQuestionAnswerComments Code status determined by:* Discussion with patient/ legal decision maker * Full Code Date ActivatedDate InactivatedComments03/06/2024 6:17 AM03/06/2024 6:33 AMAll basic and advanced life-sustaining interventions are performed as appropriateQuestion AnswerCommentsCode status determined by:* Discussion with patient/ legal decision maker * Full Code Date ActivatedDate InactivatedComments08/27/2020 9:01 AM03/03/2024 9:46 AM QuestionAnswerCommentsCode status determined by:* Discussion with patient/ legal decision maker * Full Code Date ActivatedDate InactivatedComments08/23/2020 9:21 AM08/27/2020 9:01 AMAll basic and advanced life-sustaining interventions are performed as appropriate QuestionAnswerCommentsCode status determined by:* Discussion with patient/ legal decision maker Care Teams Team MemberRelationshipSpecialtyStart [place] [address] [place] [address] PCP - GeneralFami Dpfsjbfv09/18/25 Carolyn Bettencourt PA-C Physician AssistantHematology & Oncology03/11/24 Christiano Rojas MD [address] [address] Hematology & Oncology03/11/24 Hannah Rosa PA-C [address] [place] [address] Assigned PCP03/26/24 Rupert Thorpe MD [address] [facility] [address] [place], [place] [address] Assigned Surgical Provider04/26/24 Nikita Saini MD [address] [place], [place] [address] MDCardiovascular Disease06/04/24 Pepe Sierra PA-C [address] [place], [place] [address] Assigned Heart and Vascular Provider08/24/24 Cookie Shay, RN Specialty Care CoordinatorHematology & Oncology10/15/24 Christiano Rojas MD 420 [facility] [address] [place], [place] [address] Assigned Cancer Care Lwrcjjbg75/23/25
--- OUTSIDE RECORDS SUMMARY | 2025-02-27 12:24 | XMS_ITS | Encounter Summary ---
Author Organization [facility] Address [address] [place] [address] Care Team Providers Care Ekg Technician Name Role Phone Carolyn Bettencourt PA-C Unavailable Christiano Rojas MD Unavailable [phone] Hannah Rosa PA-C Primary Care Provider + Hannah Rosa PA-C Unavailable [phone] Rupert Thorpe MD Unavailable Nikita Saini MD Unavailable [phone] Pepe Sierra PA-C Unavailable [phone] Cookie Shay RN Unavailable Unavailable Carolyn Bettencourt PA-C Unavailable Reason for Visit * ReasonOnset DateCommentsOral Chemotherapy Dmrzwayznt83/13/2025Zytiga Encounter Details DateTypeDepartmentCare Team (Latest Contact Info)Lzadykwsidk03/13/2025Telephone [facility] [address] [place] [address] Jennifer Saenz [facility] Oral Chemotherapy Management (Zytiga/) Social History Tobacco UseTypesPacks/DayYears UsedDateSmoking Tobacco: FormerSmokeless Tobacco: Never Comments:quit age 28 Alcohol UseStandard Drinks/WeekCommentsNot Currently0 (1 standard drink = 0.6 oz pure alcohol)stopped ETOH 2015PHQ-2AnswerDate RecordedPHQ-2 Xwzam154 Adolescent EducationAnswerDate RecordedGetting School Help NeededNot on [...] in an abandoned building, in an overnight prison, or couch-surfing.)Yes03/17/2024re you worried about losing your [...] ex-partner?Yes03/08/2024Sex and Gender InformationValueDate RecordedSex Assigned at OlwvjWiwk33/20/2025 10:09 AM CSTLegal GpxArtl00/04/2012 4:01 AM CSTGender DtwhsqskNcmw23/20/2025 10:08 AM CSTSexual BibupdrqxmnXdryesfb34/20/2025 10:08 AM CSTOccupationIndustry Job Start DateJob End DateEncryption communication telephoneNot on fileNot on fileNot on filedocumented as of this encounter Miscellaneous Notes * Oral Onc MGMT - Jennifer Saenz RP - 01/14/2025 9:07 AM CST Oral Chemotherapy Monitoring Program Placed call to patient in follow up of oral chemotherapy, Doloresiga. had left voicemail late lastnight, stating delivery of meds was expected yesterday but never arrived. I followed up with finance liaison. Meds were sold yesterday with the plan to deliver today. Relayed this message to . She appreciated this informaiton. Betzaida Saenz PharmD Oral Chemotherapy Monitoring Program [facility] [phone] UNTING BOOKKEEPER documented in this encounter Plan of Treatment DateTypeDepartmentCare Team (Latest Contact Info)Eksrohaojws92/27/2025 2:25 PM CSTOffice Visit [facility] [address] [phone] Miko Dale PA-C [address] [place] [address] [address] [place] [address] Avulsion of skin of forearm, initial encounter (Primary Dx); Right elbow pain03/01/2025 2:00 PM CSTOffice Visit [address] [phone] [place] [address] [place] [address] 04/08/2025 10:15 AM CSTLab [facility] [address] [place] [phone] 04/09/2025 11:00 AM CSTOncology Visit [facility] [place] [address] [place] [address] [facility] [place] [address] Christiano Rojas MD [address] [facility] [address] [place] [address] 04/09/2025 12:30 PM CSTAllied Health/Nurse Visit [facility] [place] [address] [place] [address] [facility] [place] [phone] Christiano Rojas MD 420 [facility] [address] [place] [address] 04/20/2025 9:20 AM CSTOffice Visit [facility] [place] [address] [facility] [address] [place] [phone] Pepe Sierra PA-C [address] [place], [place] [address] documented as of this encounter Goals GoalPatient [...] not send urgent or symptomatic messages through [employer]. I will contact scheduling to arrange or make changes in my appointments. documented as of this encounter Visit Diagnoses Not on filedocumented in this encounter Additional Health Concerns AssessmentNoted TimePHQ-9 Depression Total Score: 6003/17/2024 12:22 PM ACCOUNTING BOOKKEEPER documented as of this encounter Care Teams Team MemberRelationshipSpecialtyStart DateEnd Date Hannah Rosa PA-C [address] [place], [place] [address] PCP - GeneralFamily Medicine03/18/2511 Carolyn Bettencourt PA-C Physician AssistantHematology & Oncology03/11/24 Christiano Rojas MD [address] [address] MDHematology & Oncology03/11/24 Hannah Rosa PA-C [address] [place] [address] Assigned PCP03/26/24 Rupert Thorpe MD 420 [facility] [address] [place], [place] [address] Assigned Surgical Provider04/26/24 Nikita Saini MD [address] [place], [place] [address] MDCardiovascular Disease06/04/24 Pepe Sierra PA-C [address] [place], [place] [address] Assigned Heart and Vascular Provider08/24/24 Cookie Shay, RN Specialty Care CoordinatorHematology & Oncology10/15/24 Carolyn Bettencourt PA-C [address] [place], [place] [address] Assigned Cancer Care Ohgyaktx30/23/2511documented as of this encounter
--- OUTSIDE RECORDS SUMMARY | 2025-02-27 12:24 | XMS_ITS | Encounter Summary ---
Author Organization [facility] Address [address] [place] [address] Care Team Providers Care Performance Analyst Name Role Phone Carolyn BettencourtC Unavailable Christiano Rojas MD Unavailable [phone] Hannah RosaC Primary Care Provider + Hannah RosaC Unavailable [phone] Rupert Thorpe MD Unavailable Nikita Saini MD Unavailable [phone] Pepe SierraC Unavailable [phone] Cookie Shay RN Unavailable Unavailable BobChristiano espinoza MD Unavailable [phone] Reason for Visit * ReasonOnset DateCommentsPrior Auth - Hwxznnjxtw10/17/2025Abiraterone 250mg PA Approval Encounter Details DateTypeDepartmentCare Team (Latest Contact Info)Qmgtpnqtnzx57/17/2025Tebasimphone [facility] [address] [place] [address] Ethel Angeles Prior Auth - Medication (Abiraterone 250mg PA Approval) Social History Tobacco UseTypesPacks/DayYears UsedDateSmoking Tobacco: FormerSmokeless Tobacco: Never Comments:quit age 28 Alcohol UseStandard Drinks/WeekCommentsNot Currently0 (1 standard drink = 0.6 oz pure alcohol)stopped ETOH 2014PHQ-2AnswerDate RecordedPHQ-2 Uaray007 Adolescent EducationAnswerDate RecordedGetting School Help NeededNot on [...] ex-partner?Yes03/08/2024Sex and Gender InformationValueDate RecordedSex Assigned at KyadrIjia44/20/2025 10:09 AM CSTLegal OqlNlnu97/04/2012 4:01 AM CSTGender WutllbuhVgil94/20/2025 10:08 AM CSTSexual HckvqcklfdoMmsirejr61/20/2025 10:08 AM CSTOccupationIndustry Job Start DateJob End DateEncryption communication telephoneNot on fileNot on fileNot on filedocumented as of this encounter Miscellaneous Notes * Telephone Encounter - Ethel Angeles - 02/17/2025 4:49 PM CST Images from the original note were not included. Prior Authorization Approval Medication: ABIRATERONE ACETATE 250 MG PO TABS Authorization Effective Date: 12/02/2024 Authorization Expiration Date: 03/03/2026 Approved Dose/Quantity: 120/30 Reference #: [id number] Insurance Company: [employer] - Which Pharmacy is filling the prescription: [facility] ([place] - [address] [address]ERRY Angeles, [facility] Oncology Pharmacy Liaison II [email or web address] [phone] (phone [phone] (fax CTOR VOICE documented in this encounter Plan of Treatment DateTypeDepartmentCare Team (Latest Contact Info)Vgbrymeloin35/27/2025 2:25 PM CSTOffice Visit [address] [phone] Miko Dale PA-C [address] [place] [address] 644 [place] [address] Avulsion of skin of forearm, initial encounter (Primary Dx); Right elbow pain03/01/2025 2:00 PM CSTOffice Visit [address] [phone] [place] [address] [place] [address] 04/08/2025 10:15 AM CSTLab [facility] [address] [place] [address] [phone] 137 04/09/2025 11:00 AM CSTOncology Visit [facility] [address] [place] [address] 200 [facility] [place] [address] Christiano Rojas MD [address] [address] 04/09/2025 12:30 PM CSTAllied Health/Nurse Visit [facility] [address] [place] [address] [address] 200 [facility] [place] [place] [address] Christiano Rojas MD [address] [address] 04/20/2025 9:20 AM CSTOffice Visit M [facility] [address] [facility] [address] [place] [address] Pepe Sierra PA-C [address] [place], [place] 78[address]95 documented as of this encounter Goals GoalPatient [...] not send urgent or symptomatic messages through [employer]. I will contact scheduling to arrange or make changes in my appointments. documented as of this encounter Visit Diagnoses Not on filedocumented in this encounter Additional Health Concerns AssessmentNoted TimePHQ-9 Depression Total Score: 6003/17/2024 12:22 PM DIRECTOR VOICE documented as of this encounter Care Teams Team MemberRelationshipSpecialtyStart DateEnd Date Hannah Rosa PA-C [address] [place] [address] 759792 PCP - GeneralFamily Medicine03/18/2511 Carolyn Bettencourt PA-C Physician AssistantHematology & Oncology03/11/24 Christiano Rojas MD 420 [facility] 480 [place] [address] MDHematology & Oncology03/11/24 Hannah Rosa PA-C [address] [place] [address] 946142 Assigned PCP03/26/24 Rupert Thorpe MD 420 [facility] 394 [place], [place] 880515 Assigned Surgical Provider04/26/24 Nikita Saini MD 6 [place], [place] 528085 MDCardiovascular Disease06/04/24 Pepe Sierra PA-C [address] [place], [place] 025265 Assigned Heart and Vascular Provider08/24/24 Cookie Shay, RN Specialty Care CoordinatorHematology & Oncology10/15/24 Christiano Rojas MD [address] [place] [address] Assigned Cancer Care Ewihrcvc20/23/25documented as of this encounter
--- OUTSIDE RECORDS SUMMARY | 2025-02-27 12:24 | XMS_ITS ---
Author Organization [facility] Address [address] [place] [address] Care Team Providers Care Puzzle Assembler Name Role Phone Amrik Carolyn LawsonC Unavailable BobChristiano espinoza MD Unavailable [phone] Hannah Rosa PA-C Unavailable [phone] Rupert Thorpe MD Unavailable Nikita Saini MD Unavailable [phone] Pepe Sierra PA-C Unavailable [phone] Cookie Shay RN Unavailable Unavailable BobChristiano espinoza MD Unavailable [phone] Ruben Marcano DO Primary Care Provider [phone] Active Problems ProblemNoted DateDiagnosed DateMalignant neoplasm of prostate metastatic to bone (H) - Zometa x 1 while inpatient 505Basal cell carcinoma of dorsum of nose History of acute alcoholic hepatitis 01/201503/18/2024History of pulmonary embolism & DVT 06/[address] 03/18/2024History of elevated PSA - 2015 - [place] - (7.4) March 2022 03/18/2024Neuropathic pain, leg, right03/18/2024hronic gout without tophus, unspecified cause, unspecified site03/18/2024ute deep vein thrombosis (DVT) of calf muscle vein of left lower /14/2025Prostate bmvyho2203/06/2024 Pathologic vertebral ktnutppi05/03/2025Paroxysmal atrial khbzvpgkokyv62/03/2025 Chronic bpykvtrrerxqlpz29/03/2025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, initial vxfukxnfo20/03/2025History of alcohol abuse Current Treatment and Therapy Plans ENDO - Denosumab (Xgeva)* Plan Start Date:04/22/2024 Plan Provider:Christiano Rojas MD Linked Problems Malignant neoplasm metastati c to bone (H) Treatment Medications No medications scheduled. 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 Resolved Problems ProblemNoted DateDiagnosed DateResolved DateAcute wmezrqyqyubvd07/22/2021 03/17/20249749Cbiaofrcqacoekzmeec74/22/202101/14/7929Wrkzdqcthhftgi62/21/2021 03/17/2024 Overview (08/23/2020): Added automatically from request for surgery [id number]
--- OUTSIDE RECORDS SUMMARY | 2025-02-27 12:24 | XMS_ITS | Encounter Summary ---
Author Organization [facility] Address [address] [place] [address] Care Team Providers Care Liberal Arts Teacher Name Role Phone Amrik Carolyn Lawson PA-C Unavailable Christiano Rojas MD Unavailable [phone] Hannah RosaC Unavailable [phone] Rupert Thorpe MD Unavailable Nikita Saini MD Unavailable [phone] Pepe SierraC Unavailable [phone] Cookie Shay RN Unavailable Unavailable BobChristiano espinoza MD Unavailable [phone] Ruben Marcano DO Primary Care Provider [phone] Encounter Details DateTypeDepartmentCare Team (Latest Contact Info)Zejhjaroufc38/27/2025Travel Social History Tobacco UseTypesPacks/DayYears UsedDateSmoking Tobacco: FormerSmokeless Tobacco: Never Comments:quit age 28 Alcohol UseStandard Drinks/WeekCommentsNot Currently0 (1 standard drink = 0.6 oz pure alcohol)stopped ETOH 2015PHQ-2AnswerDate RecordedPHQ-2 Xmyno259 Adolescent EducationAnswerDate RecordedGetting School Help NeededNot on [...] in an abandoned building, in an overnight snf, or couch-surfing.)Yes03/17/2024re you worried about losing your [...] ex-partner?Yes03/08/2024Sex and Gender InformationValueDate RecordedSex Assigned at IojhyPdbd27/20/2025 10:09 AM CSTLegal CfdXpke07/04/2012 4:01 AM CSTGender SawkpkjzJupw14/20/2025 10:08 AM CSTSexual KoajwwtunkxVuqyrsca86/20/2025 10:08 AM CSTOccupationIndustry Job Start DateJob End DateEncryption communication telephoneNot on fileNot on fileNot on filedocumented as of this encounter Plan of Treatment DateTypeDepartmentCare Team (Latest Contact Info)Kvwgswtumru94/27/2025 2:25 PM CSTOffice Visit [facility] [address] [place] [address] Miko Dale, REY [address] [place] [address] 644 [place] [address] Avulsion of skin of forearm, initial encounter (Primary Dx); Right elbow pain03/01/2025 2:[address] [address] [place] [phone] [place] [address] [place] [address] 04/08/2025 10:[address] [facility] [address] [place] [address] 04/09/2025 11:00 AM CSTOncology Visit [address] 200 [facility] [place] [place] [phone] Christiano Rojas MD [address] 26[address] 04/09/2025 12:30 PM CSTAllied Health/Nurse Visit [facility] [address] [place] [address] [address] 200 [facility] [place] [address] Christiano Rojas MD [address] [address] 04/20/2025 9:20 AM CSTOffice Visit [facility] [address] [facility] [address] [place] [phone] Pepe Sierra PA-C [address] [place], [place] [address] documented as of this encounter Goals GoalPatient [...] not send urgent or symptomatic messages through [employer]. I will contact scheduling to arrange or make changes in my appointments. documented as of this encounter Visit Diagnoses Not on filedocumented in this encounter Additional Health Concerns AssessmentNoted TimePHQ-9 Depression Total Score: 6003/17/2024 12:22 PM WEB ANALYTICS DEVELOPER documented as of this encounter Care Teams Team MemberRelationshipSpecialtyStart [place] [address] [place] [address] PCP - GeneralFamily Ulvxmssb95/18/25 Carolyn Bettencourt PA-C Physician AssistantHematology & Oncology03/11/24 Christiano Rojas MD [address] [place] [address] [phone] Hematology & Oncology03/11/24 Hannah Rosa PA-C [address] [place] [address] 918142 Assigned PCP03/26/24 Rupert Thorpe MD [address] [address] Assigned Surgical Provider04/26/24 Nikita Saini MD 516 [place], [place] 457035 MDCardiovascular Disease06/04/24 Pepe Sierra PA-C 6[address] [place], [place] 658435 Assigned Heart and Vascular Provider08/24/24 Cookie Shay, RN Specialty Care CoordinatorHematology & Oncology10/15/24 Christiano Rojas MD [address] [place] [address] 480 [place], [place] 474375 Assigned Cancer Care Bwsdjsso80/23/25documented as of this encounter
--- OUTSIDE RECORDS SUMMARY | 2025-02-27 12:24 | XMS_ITS | Encounter Summary ---
Author Organization [facility] Address [address] [place] [address]. [place] [address] Care Team Providers Care Llama Farmer Name Role Phone Rowley Carolyn Lawson PA-C Unavailable Christiano Rojas MD Unavailable [phone] Hannah Rosa PA-C Primary Care Provider + Hannah Rosa PA-C Unavailable [phone] Rupert Thorpe MD Unavailable Nikita Saini MD Unavailable [phone] Pepe Sierra PA-C Unavailable [phone] Cookie Shay RN Unavailable Unavailable Christiano Rojas MD Unavailable [phone] Encounter Details DateTypeDepartmentCare Team (Latest Contact Info)Nbfhjovzccm00/05/2025[facility] 909 [place] [address] Christiano Rojas MD [address] [address] 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Yes03/08/2024Sex and Gender InformationValueDate RecordedSex Assigned at RxwjiVgcw34/20/2025 10:09 AM CSTLegal ZlqKijp16/04/2012 4:01 AM CSTGender OhjckrcgUspn97/20/2025 10:08 AM CSTSexual UmizltqqhpnSmeurqab11/20/2025 10:08 AM CSTOccupationIndustry Job Start DateJob End DateEncryption communication telephoneNot on fileNot on fileNot on filedocumented as of this encounter Plan of Treatment DateTypeDepartmentCare Team (Latest Contact Info)Xxajjqwjhxl63/27/2025 2:25 PM CSTOffice Visit [address] [address] Miko Dale PA-C [address] [place] [address] 644 [place] [address] Avulsion of skin of forearm, initial encounter (Primary Dx); Right elbow pain03/01/2025 2:00 PM CSTOffice Visit [address] [address] [place] [address] [place] [address] 04/08/2025 10:15 AM CSTLab [facility] [address] [place] [address] 04/09/2025 11:00 AM CSTOncology Visit [address] 200 [facility] [place] [address] Christiano Rojas MD 420 [facility] [address] [place] [address] 04/09/2025 12:30 PM CSTAllied Health/Nurse Visit [address] 200 [facility] [place] [address] Christiano Rojas MD [address] [address] 04/20/2025 9:[address] [facility] [address] [facility] [address] [place] [phone] Pepe Sierra PA-C [address] [place] [address] documented as of this encounter Goals GoalPatient [...] not send urgent or symptomatic messages through [employer]. I will contact scheduling to arrange or make changes in my appointments. 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, initial encounter Avulsion of skin of forearm, initial encounter- Primary Right elbow pain Pain in joint, upper arm documented in this encounter Additional Health Concerns AssessmentNoted TimePHQ-9 Depression Total Score: 6003/17/2024 12:22 PM LANDSCAPE ENGINEER documented as of this encounter Care Teams Team MemberRelationshipSpecialtyStart DateEnd Date Hannah Rosa PA-C [address] [place] [address] 221662 PCP - GeneralFamily Medicine03/18/2511 Carolyn Bettencourt PA-C Physician AssistantHematology & Oncology03/11/24 Christiano Rojas MD 420 [facility] [address] [place] [address] MDHematology & Oncology03/11/24 Hannah Rosa PA-C [address] [place] [address] Assigned PCP03/26/24 Rupert Thorpe MD [address] [address] Assigned Surgical Provider04/26/24 Nikita Saini MD [address] [place] [address] MDCardiovascular Disease06/04/24 Pepe Sierra PA-C 6405 [place], [place] 335685 Assigned Heart and Vascular Provider08/24/24 Cookie Shay, RN Specialty Care CoordinatorHematology & Oncology10/15/24 Christiano Rojas MD [address] [place] [address] 08229455 Assigned Cancer Care Abuekfdb19/23/25documented as of this encounter
--- OUTSIDE RECORDS SUMMARY | 2025-02-27 12:24 | XMS_ITS | Encounter Summary ---
Author Organization [facility] Address [address] [place] [address] Care Team Providers Care Platform Power Technician Name Role Phone Carolyn Bettencourt PA-C Unavailable Christiano Rojas MD Unavailable [phone] Hannah Rosa PA-C Primary Care Provider + Hannah Rosa PA-C Unavailable [phone] Rupert Thorpe MD Unavailable Nikita Saini MD Unavailable [phone] Pepe Sierra PA-C Unavailable [phone] Cookie Shay RN Unavailable Unavailable BobChristiano espinoza MD Unavailable [phone] Encounter Details DateTypeDepartmentCare Team (Latest Contact Info)Tkghrmmjofq80/03/2025Telephone [address] [address] Hannah Rosa PA-C [address] [place] [address] Social History Tobacco UseTypesPacks/DayYears UsedDateSmoking Tobacco: FormerSmokeless Tobacco: Never Comments:quit age 28 Alcohol UseStandard Drinks/WeekCommentsNot Currently0 (1 standard drink = 0.6 oz pure alcohol)stopped ETOH 2014PHQ-2AnswerDate RecordedPHQ-2 Lwbfs356 Adolescent EducationAnswerDate RecordedGetting School Help NeededNot on [...] ex-partner?Yes03/08/2024Sex and Gender InformationValueDate RecordedSex Assigned at YqcufUnzh48/20/2025 10:09 AM CSTLegal FitAumr83/04/2012 4:01 AM CSTGender CxcnqhvkFcwf92/20/2025 10:08 AM CSTSexual FhuknadraktSmcuopxz20/20/2025 10:08 AM CSTOccupationIndustry Job Start DateJob End DateEncryption communication telephoneNot on fileNot on fileNot on filedocumented as of this encounter Miscellaneous Notes * Telephone Encounter - Jenna Dillon CMA - 02/03/2025 7:51 AM CST Patient Quality Outreach Patient is due for the following: Physical Preventive Adult Physical Action(s) Taken: Schedule a Adult Preventative Type of outreach: Sent [employer] message. Questions for provider review: None Jenna Dillon CMA Chart routed to None. PHYSICIAN DERMATOLOGIST documented in this encounter Plan of Treatment DateTypeDepartmentCare Team (Latest Contact Info)Lkbnwmsxwth04/27/2025 2:25 PM CSTOffice Visit [facility] [address] [address] Miko aDle PA-C [address] [place], [place] [address] [place] [address] Avulsion of skin of forearm, initial encounter (Primary Dx); Right elbow pain03/01/2025 2:00 PM CSTOffice Visit [address] [phone] [place] [address] [place] [address] 04/08/2025 10:15 AM CSTLab [facility] [address] [place] [address] 04/09/2025 11:00 AM CSTOncology Visit [facility] [place] [address] [place] [address] [address] 200 [facility] [place] [address] Christiano Rojas MD 420 [facility] 480 [place] [address] 04/09/2025 12:30 PM CSTAllied Health/Nurse Visit [facility] [place] [address] [facility] [address] 200 [facility] [place] [address] Christiano Rojas MD 420 [facility] 480 [place] [address] 04/20/2025 9:20 AM CSTOffice Visit [facility] [place] [address] [place] [address] [place] [phone] Pepe Sierra PA-C 6[address] [place], [place] [address] documented as of this encounter Goals GoalPatient [...] not send urgent or symptomatic messages through [employer]. I will contact scheduling to arrange or make changes in my appointments. documented as of this encounter Visit Diagnoses Not on filedocumented in this encounter Additional Health Concerns AssessmentNoted TimePHQ-9 Depression Total Score: 6003/17/2024 12:22 PM MD PHYSICIAN DERMATOLOGIST documented as of this encounter Care Teams Team MemberRelationshipSpecialtyStart DateEnd Date Hannah Rosa PA-C [address] [place] [address] PCP - GeneralFamily Medicine03/18/2511 Carolyn Bettencourt PA-C Physician AssistantHematology & Oncology03/11/24 Christiano Rojas MD 420 [facility] 480 [place] [address] MDHematology & Oncology03/11/24 Hannah Rosa PA-C [address] [place] [address] 732622 Assigned PCP03/26/24 Rupert Thorpe MD 420 [facility] 394 [place] [address] Assigned Surgical Provider04/26/24 Nikita Saini MD 516 [place], [place] [address] MDCardiovascular Disease06/04/24 Pepe Sierra PA-C 6405 [place], [place] 5[address]65 Assigned Heart and Vascular Provider08/24/24 Cookie Shay, RN Specialty Care CoordinatorHematology & Oncology10/15/24 Christiano Rojas MD 420 [facility] 480 [place] [address] Assigned Cancer Care Eageuljg77/23/25documented as of this encounter
--- OUTSIDE RECORDS SUMMARY | 2025-02-27 12:25 | XMS_ITS | Clinical Summary ---
Author Organization [facility] Address [address], [place] [address] Care Team Providers Care Kettle Operator Head Name Role Phone Unassigned, Provider Primary Care Provider Unava ilable Source Comments You are receiving this document as you are listed as the primary care provider,follow-up provider, or the patient has been referred to you for consultation.This is in compliance with the Medicare andMag[facility]uder Memorial Hospitalcaaz EHR Incentive Program,which states Providers who transition their patient to another setting of careor provider of care or refers their patient to another provider of care shouldprovide summary care record for each transition of care or referral. [facility] Allergies No known active allergies Medications No known medications Active Problems ProblemNoted DateDiagnosed DateEssential waojzdikexwn15/07/2003 Overview (10/24/2016): Hypertension Punaxn5608/08/2002 Overview (10/24/2016): Asthma NOS Esophageal ghyngr5108/08/2002 Overview (10/24/2016): Gastroesophageal Reflux Disease Wpusbxdhywhvdk25/07/2003 Immunizations ImmunizationAdministration DatesNext DueTd05/11/1996 Social History Tobacco UseTypesPacks/DayYears UsedDateSmoking Tobacco: NeverSmokeless Tobacco: Never Tobacco Cessation:Counseling Given: Not Answered Sex and Gender InformationValueDate RecordedSex Assigned at BirthNot on file Legal BneMkfq96/10/2012 4:24 AM CDTGender IdentityNot on fileSexual Orientation Not on file Last Filed Vital Signs Vital SignReadingTime TakenCommentsBlood Oqluciwu423/5908 8:16 AM CDT Jjvwq7422 8:16 AM PRBFvikdqhdoen50.4 ??C (97.6 ??F)10/07/2023 8:16 AM CDTRespiratory Xmjf135410/07/2023 8:16 AM CDTOxygen Ogobdqbavv11%10/07/2023 8:16 AM CDTInhaled Oxygen Concentration--Ecrsnc78.8 kg (176 lb)02/27/2024 10:25 AM CSTHeight--Body Mass Index-- Plan of Treatment Health MaintenanceDue DateLast DoneCommentsMedicare Annual Wellness Visit 1936RSV Vaccine (1 - 1-dose 75+ series)11/20/2011Zoster/Shingles Vaccine (2 of 3)COVID-19 Vaccine ( season)2024 12/13/2023, 01/17/2023, 11/24/2021, Additional history existsInfluenza Vaccine (#1)/01/2024, 12/25/2022, 12/21/2021, Additional history exists DTaP/Tdap/Td Vaccine (2 - Tdap)/, 09/01/2006, 05/11/1996 Pneumococcal Vaccine 50+ ByfCbipouotg76/30/2015, 01/18/2010, 03/04/2002HepA VaccineAged OutNo longer eligible based on patient's age to complete this topic HepB VaccineAged OutNo longer eligible based on patient's age to complete this topicHib VaccineAged OutNo longer eligible based on patient's age to complete this topicMCV4 VaccineAged OutNo longer eligible based on patient's age to complete this topicMeningococcal B VaccineAged OutNo longer eligible based on patient's age to complete this topic Insurance * Guarantor: Yissel Ocampo TypeRelation to PatientDate of BirthPhone Billing AddressPersonal/Vlpqom9510/[birth year][address] [place] [address] Care Teams Team MemberRelationshipSpecialtyStart DateEnd Date Unassigned, Provider [address] [place] [address] PCP - Rzsbaoh20/4/00
--- OUTSIDE RECORDS SUMMARY | 2025-02-27 12:25 | XMS_ITS | Data Portability ---
Author Organization Formerly [facility] Address [address] [place] [address] Care Team Providers Care Lens Maker Name Role Phone GEMMA HATCH [employer] MATHEW BOLAÑOS Caterer'S Aide Assessment No assessment recorded. Plan of Treatment Reminders Order DateSubmit DateProviderLast Modified ByOrganization DetailsLast Modified TimeDetailsAppointmentsNone recorded.Laburic acid, serum or bsuysm9005/01/2023 05/01/2023[facility], [address], [place], [address], 280[address] 23:02:56vitamin B12 + folate, serum or blood05/01/2023 05/01/2023[facility], [address], [place], [address], 7[address]/13/2023 23:02:57ESR (erythrocyte sedimentation rate), blood05/01/2023 05/01/2023[facility], [address], [place], [address], 13 22:54:56TSH, serum, reflex free T4THENA [facility], [address], [place], [address], 7939 23:02:56unlisted lab - RPR (diagnosis), w/reflx titer & confirm testing [facility], [address], [place], [address], 59/02/2024 22:54:56CBC w/ diffTri[facility], [address], [place], [address], 65/01/2024 23:02:55CMP, serum or tsugzf61[facility], [address], [place], [address], 68 23:02:55lipid panel, serumTri[facility], [address], [place], [address], 71 23:02:57vitamin B12 + folate, serum or blood /[facility], [address], [place], [address], 20/05/2022 03:03:40ReferralNone recorded.ProceduresNone recorded.SurgeriesNone recorded.ImagingXR, chest, 2 view05/01// [facility], [address], [address], [place], [address], [address]/01/2023 12:13:56XR, hip + pelvis, unilateral, 2 or 3 view05/01/[facility], [address], [address], [place], [address], [address]/01/2023 12:15:18Medication OrdersNone recorded. Patient TargetsNo targets recorded. Patient Instructions Encounter Date Encounter Id Patient Instructions Last Modified By Organization Details Last Modified Time 04/18/2022 [id number] eating healthy foods: care instructions hrolins Not available 04/18/2022 12:15:12 02/06/2023 [id number] eating healthy foods: care instructions hrolins Not available 02/06/2023 11:28:58 He will call us if any other issues arise while he is here in town. was notified earlier to call us if she notices that her 's memory issues are worseninghrolinsNot bcaniwzkk30/06/2023 11:28:[id number] healthy foods: care instructionshrolinsNot ushnewszr66/28/2024 10:28:29A healthy lifestyle: care instructionshrolinsNot bipvlozac33/28/2024 10:28:29preventing falls: care instructionshrolinsNot cglwmiaqf03/28/2024 10:28:29advance care planning: care instructionshrolinsNot xlntrmymw88/28/2024 10:28:29learning about high blood pressurehrolinsNot exczeetpf47/28/2024 10:28:29preventing falls: care instructionshrolinsNot oktuugagv43/28/2024 10:28:29advance care planning: care instructionshrolinsNot hdobakmva13/28/2024 10:28:29learning about alcohol use disorderhrolinsNot rygibiadf17/28/2024 10:28:28Urge Incontinence: Care InstructionshrolinsNot /28/2024 10:28:29chronic pain: care instructionshrolinsNot pnkekdptj18/28/2024 10:28:28COUNSELING & COORDINATION of CARE N/A: Increase Exercise N/A: Encourage Weight Loss Yes: Decrease Fat N/A: Diabetic Patient Counseling N/A: Smoking Cessation N/A: Decrease Alcohol N/A: Decrease Salt Yes: Increase Fiber Yes: Increase H20 Yes: Counseled patient regarding Lab/Dx/need for follow-up Yes: Discussed medications, side effects, & compliance Yes: Dental Care Yes: Eye ExamhrolinsNot ybphwfyir97/28/2024 10:43:[id number] healthy foods: care instructionshrolinsNot hpxbduurj46/18/2024 17:32:03low back pain educationhrolinsNot lziywubid17/18/2024 17:32:03 Reason for Referral None Reported. Results Created Date Observation Date Name Description Value Unit Range Abnormal Flag Note LastModifiedBy Organization Detail LastModifiedTime 05/13/2023 05/13/2023 COMPLETE BLOOD C OUNT WITH AUTO DIFF white blood cell 5.83 K/uL 4.40-10.80 [facility] [address] [place], [address], 1005/13/2023 23:02:55 OMPLETE BLOOD COUNT WITH AUTO DIFFred blood cell4.37M/uL 4.40-5.80lowNot Available[facility] [address] [place], [address], 55 23:02:55 OMPLETE BLOOD COUNT WITH AUTO VTKMwlxelerjrb95.7g/dL 13.5-17.5Not Available[facility] [address] [place], [address], 2405/13/2023 23:02:55 OMPLETE BLOOD COUNT WITH AUTO BADBdcpzojcxkx06.7%40.0-53.0 Not Available[facility] [address] [place], [address], 8705/13/2023 23:02:55 OMPLETE BLOOD COUNT WITH AUTO DIFFmean corpuscular volume 97.7fL80.0-97.0highNot AvailableFair[facility] [address] [place], [address], 3105/13/2023 23:02:55 OMPLETE BLOOD COUNT WITH AUTO DIFFmean corpuscular cpqqeersxb32.4pg25.8-32.9Not Available[facility] [address] [place], [address], 9[address]/13/2023 23:02:55 OMPLETE BLOOD COUNT WITH AUTO DIFFmean corpuscular hemoglobin vgrrtjoxpqosm89.1g/dL31.0-35.0Not Available[facility] [address] [place], [address], 1705/13/2023 23:02:55 OMPLETE BLOOD COUNT WITH AUTO DIFFred cell distribution width14.5%11.1-15.1Not Available[facility] [address] [place], [address], 1605/13/2023 23:02:55 OMPLETE BLOOD COUNT WITH AUTO KEVOfzlfhengo473F/zS222-471 Not Available[facility] [address], [place], [address], 4[address]/13/2023 23:02:55 OMPLETE BLOOD COUNT WITH AUTO DIFFmean platelet sbtzar18.6 fL7.5-14.0Not [facility] [place], [address], 1005/13/2023 23:02:55 OMPLETE BLOOD COUNT WITH AUTO DIFFneutrophil, percentage 57.0%38.8-76.4Not [facility] [address] [place], [address], 5005/13/2023 23:02:55 OMPLETE BLOOD COUNT WITH AUTO DIFFlymphocyte, percentage 24.9%17.8-46.6Not [facility] [address] [place], [address], 5[address]/13/2023 23:02:55 OMPLETE BLOOD COUNT WITH AUTO DIFFmonocyte, ukbuuouple22.7% 3.0-11.0highNot [facility] [address] [place], [address], 94 23:02:55 OMPLETE BLOOD COUNT WITH AUTO DIFFeosinophil, percentage4.3 %0.0-6.0Not [facility] [address], [place], [address], 51 23:02:55 OMPLETE BLOOD COUNT WITH AUTO DIFFbasophil, percentage0.9% 0.0-2.0Not [facility] [address] [place], [address], 31 23:02:55 OMPLETE BLOOD COUNT WITH AUTO DIFFneutrophil, absolute3.33 K/uL1.90-7.90Not [facility] [address] [place], [address], 33 23:02:55 OMPLETE BLOOD COUNT WITH AUTO DIFFlymphocyte, absolute1.45 K/uL0.95-4.90Not [facility] [address], [place], [address], 97 23:02:55 OMPLETE BLOOD COUNT WITH AUTO DIFFmonocyte, absolute0.74 K/uL0.14-1.20Not [facility] [address] [place], [address], 99 23:02:55 OMPLETE BLOOD COUNT WITH AUTO DIFFeosinophil, absolute0.25 K/uL0.00-0.70Not [facility] [place], [address], 09 23:02:55 OMPLETE BLOOD COUNT WITH AUTO DIFFbasophil, absolute0.05 K/uL0.00-0.20Not [facility] [address] [place], [address], 5305/13/2023 23:02:55 OMPLETE BLOOD COUNT WITH AUTO DIFFimmature granuloctyes0.2% 0.0-3.0Not Available[facility] [address] [place], [address], 5405/13/2023 23:02:55 OMPLETE BLOOD COUNT WITH AUTO DIFFimmature granuloctyes# 0.01K/uL0.00-0.30Not [facility] [address] [place], [address], 8405/13/2023 23:02:55 OMPLETE BLOOD COUNT WITH AUTO DIFFnucleated red blood cell %0.00%0.00-0.00Not [facility] [address] [place], [address], 9805/13/2023 23:02:55 OMPLETE BLOOD COUNT WITH AUTO DIFFnucleated red blood cell #0.00K/uL0.00-0.00Not [facility] [address] [place], [address], 8005/13/2023 23:02:55 OMPREHENSIVE METABOLIC PANEL W/EGFR (14)glucose, gujwbi414 mg/sU01-498qtikThk [facility] [place], [address], 90 23:02:55 OMPREHENSIVE METABOLIC PANEL W/EGFR (14)EYV05bi/dL8-25Not [facility] [place], [address], [address]/13/2023 23:02:55 4COMPREHENSIVE METABOLIC PANEL W/EGFR (14)creatinine0.9mg/dL 0.6-1.5For patients >49 years of age, the reference limit for Creatinine is approx 13% higher for people identified as -Salvadorean.Not Available[facility] [address] [place], [address], 6[address]/13/2023 23:02:55 4COMPREHENSIVE METABOLIC PANEL W/EGFR (14)eGFR qvyaasay80wU/min/1.54q1Ije AvailableFair[facility] [address], [place], [address], [address]89[address]/13/2023 23:02:55 4COMPREHENSIVE METABOLIC PANEL W/EGFR (14)eGFR non- armlyhmm48mC/min/1.73q1Mhna: eGFR and Non- Chronic kidney disease (CKD) is defined as either kidney damage or persistent reduction for 3 months or more in an EGFR <60 ml/min/1.73 m2. Patients with EGFR values > / =60 ml/min/1.73 m2 may also have CKD if evidence of persistent proteinuria is present. Refer to www.kdoqi.org for additional information on CKD.Not Available [facility] [address] [place], [address], 819[address]/13/2023 23:02:55 4COMPREHENSIVE METABOLIC PANEL W/EGFR (14)BUN/creat ratio14 ozaoh51-19Qfv AvailableFair[facility] [address] [place], [address], 787105/13/2023 23:02:55 4COMPREHENSIVE METABOLIC PANEL W/EGFR (14)bilirubin, total0.9 mg/dL0.2-1.3Not AvailableFair[facility] [address] [place], [address], 39 23:02:55 OMPREHENSIVE METABOLIC PANEL W/EGFR (14)AST (SGOT)39U/L 17-59Not AvailableFair[facility] [address] [place], [address], 85 23:02:55 OMPREHENSIVE METABOLIC PANEL W/EGFR (14)ALT (SGPT)18U/L<50 Not AvailableC[facility] [address] [place], [address], 9405/13/2023 23:02:55 OMPREHENSIVE METABOLIC PANEL W/EGFR (14)alkaline varlhhrlklm072X/P04-208szjzAxy AvailableFair[facility] [address] [place], [address], 7005/13/2023 23:02:55 OMPREHENSIVE METABOLIC PANEL W/EGFR (14)calcium8.4mg/dL 8.3-10.4Not AvailableFair[facility] [address] [place], [address], 15 23:02:55 OMPREHENSIVE METABOLIC PANEL W/EGFR (14)ltysmn083cnkc/L 135-145Not AvailableFair[facility] [address] [place], [address], 04 23:02:55 OMPREHENSIVE METABOLIC PANEL W/EGFR (14)potassium3.9mmol/L 3.5-5.2Not AvailableFair[facility] [address] [place], [address], 87 23:02:55 4COMPREHENSIVE METABOLIC PANEL W/EGFR (14)qvdcewgj466dibv/L 96-110Not Availableg Laboratory [address] [place], [address], 10 23:02:55 4COMPREHENSIVE METABOLIC PANEL W/EGFR (14)TP342qztk/U62-38Elj Availableg [facility] [address] [place], [address], 5805/13/2023 23:02:55 OMPREHENSIVE METABOLIC PANEL W/EGFR (14)total protein6.6 g/dL6.3-8.2Not Available[facility] [address] [place], [address], 0705/13/2023 23:02:55 OMPREHENSIVE METABOLIC PANEL W/EGFR (14)albumin2.7g/dL 3.5-5.0lowNot AvailableFair[facility] [address] [place], [address], 7605/13/2023 23:02:55 OMPREHENSIVE METABOLIC PANEL W/EGFR (14)globulin3.9g/dL 2.0-3.7highNot AvailableFair[facility] [address] [place], [address], 6505/13/2023 23:02:55 OMPREHENSIVE METABOLIC PANEL W/EGFR (14)albumin/globulin0.7 ratio1.0-2.4lowNot AvailableFair[facility] [address] [facility] [place], [address], 59[address]/13/2023 23:02:55 OMPREHENSIVE METABOLIC PANEL W/EGFR (14)anion omz5dhov/L 4-18Not AvailableFair[facility] [address] [place], [address], 14/01/2024 23:02:55 TSH RFLX TO FREE T4TSH1.59mIU/L0.45-4.50Not AvailableFair[facility] [address] [place], [address], 805/13/2023 23:02:56 URIC ACIDuric acid6.3mg/dL3.5-8.0Not Availableg Laboratory [address] [place], [address], 705/13/2023 23:02:56 LIPID IDKHBrfmquqqvpmns378mh/dL<150Normal: <150 mg/dL Borderline High: 150-199 mg/dL High: 200-499 mg/dL Very High: greater than or equal to 500 mg/dLNot AvailableFair[facility] [address] [place], [address], 205/13/2023 23:02:57 LIPID GVYMRrowevhmsfso995tx/dL<200Desirable: <200 mg/dL Borderline High: 200-239 mg/dL High: greater than or equal to 240 mg/dLNot AvailableFair[facility] [address] [place], [address], 405/13/2023 23:02:57 LIPID PANELHDL tmdrpl50re/dL>=40Not AvailableFair[facility] [address] [place], [address], 005/13/2023 23:02:57 LIPID PANELLDL-oujbsezkvk605hi/dL<=129Target for non-HDL cholesterol is 30 mg/dL higher than LDL cholesterol target.Not AvailableFair[facility] [address] [place], [address], 605/13/2023 23:02:57 /01/2024LIPID PANELchol/HDL risk ratio3.6ratio<=4.9Not AvailableFair[facility] [address] [place], [address], 8205/13/2023 23:02:57 /01/2024LIPID PANELLDL/HDL risk ratio2.2ratio>0.4Not AvailableFair[facility] [address], [place], [address], 4005/13/2023 23:02:57 LIPID PANELVLDL jxhoncvsiq13uz/dL<=29Not AvailableFair[facility] [address], [place], [address], 964805/13/2023 23:02:57 VITAMIN B12 AND FOLATE - AMBvitamin O24190hq/jE381-440Oul AvailableFair[facility] [address], [place], [address], [address]/13/2023 23:02:57 VITAMIN B12 AND FOLATE - AMBfolate3.65NG/mL>=4.80low Recommend to collect sample when patient is in a fasting state. Deficient Patients: 1.04-2.79 ng/mLNot AvailableFair[facility] [address], [place], [address], [address]0105/13/2023 23:02:57 /4RPR (DIAGNOSIS), W/REFLX TITER & CONFIRM TESTINGRPR screen Nonreactivenonreactivenormal[WYNNE]Not [facility] [address], [address], 43/02/2024 22:54:560/02/2024SEDIMENTATION RATEerythrocyte sedimentation rate24 mm/HR<=20highErythrocyte Sedimentation Rate (ESR) specimens are stable for 4-6 hours at room temperature, and 24hours if refrigerated. ESR results trend lower with increased specimen age. Consider use of C-reactive protein (CRP) to assess acute phase responses. [TC]Not AvailableP[facility] [address], [place], [address], 03/02/2024 22:54:5601///T, head, w/o contrastNo observation recorded. [address] [place], [address], 01/ 09:16:1202//XR, chest, 2 viewNo observation recorded.[facility] [address] [facility] [address], [place], [address], 05/01/2023 14:42:3202//XR, hip + pelvis, unilateral, 2 or 3 view No observation recorded.clkagu67Jjvxresr [facility] [address] [facility] [address] [facility], [place], [address], 05/01/2023 16:01:1602//XR, chest, 2 viewNo observation recorded. [facility] [address], [place], [address], 05/01/2023 15:40:1102//XR, chest, 2 viewNo observation recorded. [facility] [address] [facility], [place], [address], 05/01/2023 15:41:5503//351661/imaging/diagnostic resultNo observation recorded.Martina HENDERSON [address], [place], [address], 29/ 12:21:01 504/05/2024electrocardiogramNo observation recorded.mlnxcawq2Tsq Nntlcdxlp16/04/2025 11:43:13 Result Notes None recorded. Problems Name Problem SNOMED Code Status Onset Date Resolution Date Notes Provider Name and Address Organization Details Recorded Time Essential hypertension 47510147 Active 05/07/2017 Not RztbxigcoUltltzYlwuwt44/15/2022 12:39:35Ssgw75540419Vlihpd04/06/2018Not QizfjfzjlTgqbisNawxjf02/15/2022 12:39:35Anticoagulant heeesuxEjoowlcki48/06/2018 12/12/2020hx pulmonary embolismNacho Donohue MD [address], [place], [address], [facility]12/12/2020 12:56:00Vitamin D lbnujjcpfw06131371Tgejrt 06/18/2017Not TzjtfeivaRsqtbzHkruyl74/15/2022 12:39:35History of pulmonary cbritob011701532Lhnkvc56/17/2018Not YisgjumaoBozvpzDizgvc69/15/2022 12:39:35 Prostate specific antigen above reference mtxiu833308733Dlyobd99/31/2019Not AdxtgxcusIizgtgSehkjt31/15/2022 12:39:35Poor short-term hlausf724504824Sykqfx 01/01/2019Not UpampyjgpAhogjuOgxagt89/15/2022 12:39:69Rsjugyz36289930Phlevn 01/01/2019Not QuswhfiorVfowvwVluvut10/15/2022 12:39:35Folic acid deficiency 801935924Kxdjuu17/13/2023Nacho Donohue MD [address], [place], [address], [facility]03/16/2022 10:27:20 Notes:Gout (Active); Notes: Medical H/O: pulmonary embolus (Active); Notes: Medical Hypertensive disorder (Active); Notes: Medical Vitamin D deficiency (Active); Notes: Medical Problem Notes Documentation Provider Name and Address Organization D etails Recorded Time [employer] Consult Note : This document (1 of 1) was received from [email or web address] on 06/10/2024 through Direct Message along with the following message body content: You have received a 7 page fax at 06/10/2024 5:24:31 AM. * The Caller-ID for this fax is [phone]. If you have any questions regarding this message or your service contact Corporate Support: [place] Email: [email or web address] Phone: or Email: [email or web address] Phones: [phone] Thank you for using the [employer] service! Nneka [facility]06/10/2024 09:49:21 Procedures Surgical History Date Name Laterality Status Provider Name and Address Organization Details Recorded Time 05/01/2023 [facility] Screening Questionnaire [facility]/01/2023 10:19:36005/01/2023ladder Continence ScreeningcompletedDW[facility]05/01/2023 10:19:27005/01/2023Mini-COGBatsheva Donohue MD [address], [place], [address], [facility]05/01/2023 10:41:29005/01/2023Fall Risk Screening Toolcompleted [facility]04/26/2023 11:16:47005/01/2023WE 5-10 Year Plan - MaleBatshvea Donohue MD [address], [place], [address], [facility]05/01/2023 10:41:ain Screening Questionnaire completedDa[facility]03/15/2022 10:29:0703/15/2022ladder Continence ScreeningcompletedDW[facility]03/15/2022 10:29:05003/15/2022Mini-COGcompletedDarlene [facility]03/09/2022 15:02:15003/15/2022Fall Risk Screening ToolcompletedDarlene [facility]03/09/2022 15:02:10003/15/2022WE 5-10 Year Plan - MalecompletedNacho Donohue MD [address], [place], [address], [facility]03/15/2022 10:57:1501Pain Screening Questionnaire completedNacho Donohue MD [address], [place], [address], [facility]11/25/2020 13:51:35011/25/2020Mini-COGcompletLilo Donohue MD [address], [place], [address], [facility]11/25/2020 13:51:35011/25/2020HQ-9completedHoward Joanie Donohue MD [address], [place], [address], [facility]11/25/2020 13:51:3501Pain Screening Questionnaire completedDarlenElbert [facility]07/12/2020 18:10:10007/12/2020ladder Continence ScreeningcompletedDarAt[facility]07/12/2020 18:13:10007/12/2020WE 5-10 Year Plan - MalecomPrincess Donohue MD [address], [place], [address], [facility]07/12/2020 19:25:49007/12/2020Mini-COGcompletedDarlene [facility]07/12/2020 18:09:3905HQ-9completedDarlene [facility]07/12/2020 18:10:02007/12/2020Fall Risk Screening Toolcompleted [facility]07/12/2020 18:09:331Bladder Continence ScreeningcompletedDWest [facility]01/01/2019 16:34:00 01/01/2019Visual AcuitycompletedDarAtrium Health [facility]01/01/2019 16:40:4901/01/2019AWE 5-10 Year Plan - MalecompletedNacho Donohue MD [address], [place], [address], [facility]01/01/2019 17:11:031Mini-COGcompletedDarP[facility]mont [facility]01/01/2019 16:30:1410PHQ-9completedDarAtrium [facility]01/01/2019 16:34:301Fall Risk Screening Toolcompleted [facility]01/01/2019 16:34:17003/05/2017Colonoscopy completedDarAtrium [facility]06/17/2017 17:10:3006Intrm oph exam est patientcompletedDWest [facility]06/17/2017 17:10:22 Abdominal SurgerycompletedDWest [facility]03/22/2021 12:10:35 Hernia RepaircompletWell[facility]06/17/2017 17:09:55 Prostate SurgerycompletWell[facility]06/17/2017 17:10:01 Imaging Results None recorded. Procedure Notes None recorded. Medical Equipment None Reported. Allergies Allergen ID Allergen Name Allergen Category Reaction Reaction Severity Criticality Documentation Date Start Date Code Code System Note Provider Name and Address Organization Details Recorded Time 2785461 diltiazem Not available Not available Not available Not fhpipskso85/64092145YmFcbqbkuxumsrhwgp reaction (text: Fatigue, code: [id number]) (from external source)Not Availableathena - External Data Service - prod02/12/2025 16:09:59 No known drug allergies Medications Name Sig Start Date Stop Date Status Note LastModified by Organization Details LastModified Time carisoprodol 350 mg tablet Take 1 tablet twice a day by oral route as needed for 30 days. 07/12/2020ompletedNot AvailableNot AvailableNot Availablefurosemide 40 mg tabletactiveNot AvailableNot AvailableNot Availablebicalutamide 50 mg tablet activeNot AvailableNot AvailableNot Availableazithromycin 250 mg tabletTAKE 2 TABLETS BY MOUTH ON DAY 1, AND THEN TAKE 1 TABLET BY MOUTH ONCE A DAY ON DAY 2 THROUGH DAY ompletedNot AvailableNot AvailableNot Available prednisone 20 mg wmrqhi1105/21/2024ompletedNot AvailableNot AvailableNot Availableprednisone 5 mg tabletactiveNot AvailableNot AvailableNot Available midodrine 5 mg tabletactiveNot AvailableNot AvailableNot Availableacetaminophen 300 mg-codeine 30 mg lxfdbp5105/21/2024ompletedNot AvailableNot AvailableNot Availableciprofloxacin 500 mg tabletactiveNot AvailableNot AvailableNot Availabletramadol 50 mg vzjnyk0607/12/2020ompletedNot AvailableNot AvailableNot Availablespironolactone 25 mg tabletactiveNot AvailableNot AvailableNot Availabletamsulosin 0.4 mg wrhccbo8903/12/2022ompletedNot AvailableNot Available Not Availablebaclofen 10 mg hxgtlw3607/12/2020ompletedNot AvailableNot Available Not Availablecephalexin 500 mg qycshgj9107/12/2020ompletedNot AvailableNot AvailableNot Availablenystatin 100,000 unit/gram topical creamAPPLY CREAM TOPICALLY TO AFFECTED AREA THREE TIMES DAILY03/22/2021ompletedNot AvailableNot AvailableNot Availablewarfarin 5 mg tabletTAKE 1 TABLET BY MOUTH ONCE DAILY GFSTYFUN67/ompletedNot AvailableNot AvailableNot Available lisinopril 20 mg-hydrochlorothiazide 25 mg tabletTAKE 1 TABLET BY MOUTH ONCE DAILY03/22/2021ompletedNot AvailableNot AvailableNot Availablefolic acid 1 mg tabletTake 1 tablet every day by oral route for 90 days./04/2022 completedNot AvailableNot AvailableNot Availableallopurinol 300 mg tabletTAKE 1 TABLET BY MOUTH ONCE DAILY2completedNot AvailableNot AvailableNot Availablegabapentin 100 mg capsuleactiveNot AvailableNot Available Not Availablemetoprolol succinate ER 25 mg tablet,extended release 24 hractive Not AvailableNot AvailableNot Availablescopolamine 1 mg over 3 days transdermal patchAPPLY 1 PATCH TOPICALLY EVERY 72 HOURS FOR 13 DAYS4completedNot AvailableNot AvailableNot Availablefluticasone propionate 50 mcg/actuation nasal spray,pyydeyjqdi77/19/2022completedNot AvailableNot AvailableNot Available amoxicillin 875 mg-potassium clavulanate 125 mg vstmng555completedNot AvailableNot AvailableNot Availableoxycodone 5 mg tabletactiveNot AvailableNot AvailableNot Availablepotassium chloride ER 10 mEq tablet,extended release(part/cryst)activeNot AvailableNot AvailableNot AvailableBoostrix Tdap 2.5 Lf unit-8 mcg-5 Lf/0.5 mL intramuscular syringeADM 0.5ML IM UTD03/22/2021 completedNot AvailableNot AvailableNot Availableabiraterone 250 mg tabletactive Not AvailableNot AvailableNot Availableoseltamivir 6 mg/mL oral suspension 5completedNot AvailableNot AvailableNot AvailableEliquis 5 mg tablet activeNot AvailableNot AvailableNot AvailableJardiance 10 mg tabletactiveNot AvailableNot AvailableNot AvailableEntresto 24 mg-26 mg tabletactiveNot AvailableNot AvailableNot AvailableFluzone High-Dose 2019-20 (PF) 180 mcg/0.5 mL intramuscular syringeADM 0.5ML IM UTD03/22/2021ompletedNot AvailableNot AvailableNot AvailableCOVID-19 test specimen collectionTEST DIRECTED 2completedNot AvailableNot AvailableNot Available Vitals Date Recorded Body height Body mass index (BMI) Body weight Body temperature Heart rate Respiratory rate Systolic And Diastolic Provider Name and Address Organization Details Last Updated DateTime 3 172.72 cm 28.6 kg/m2 65519.3 7 g 98.2 [degF] 80 /min 20 /min 119/67 mm[Hg] Nneka [facility] 3 11:42:33 Date Recorded Body height Body mass index (BMI) Body weight Body temperature Heart rate Respiratory rate Systolic And Diastolic Provider Name and Address Organization Details Last Updated DateTime 4 172.72 cm 27.2 kg/m2 64880.0 3 g 98.3 [degF] 90 /min 16 /min 138/78 mm[Hg] [facility] 4 10:18:55 Date Recorded Body height Body mass index (BMI) Body weight Body temperature Heart rate Respiratory rate Systolic And Diastolic Provider Name and Address Organization Details Last Updated DateTime 4 172.72 cm 26.5 kg/m2 87004.0 7 g 98.2 [degF] 54 /min 16 /min 138/79 mm[Hg] [facility] 4 17:20:57 Date Recorded Body height Body mass index (BMI) Body weight Body temperature Heart rate Respiratory rate Systolic And Diastolic Provider Name and Address Organization Details Last Updated DateTime 5 172.72 cm 23.6 kg/m2 43651.8 2 g 98.2 [degF] 80 /min 16 /min 104/55 mm[Hg] [facility] 5 12:08:18 Date Recorded Systolic And Diastolic Provider Name and Address Organization Details Last Updated DateTime 02/06/2023 120/70 mm[Hg] Nacho Donohue MD [address],[place] [address], [place], [address], [facility] 02/06/2023 11:27:08 Date Recorded Body height Body mass index (BMI) Body weight Body temperature Heart rate Respiratory rate Systolic And Diastolic Provider Name and Address Organization Details Last Updated DateTime 3 172.72 cm 28.7 kg/m2 76925.9 6 g 98.1 [degF] 88 /min 20 /min 153/81 mm[Hg] Xiomara Little [facility] 3 11:18:36 Social History Question Answer Notes LastModified by Organization D etails LastModified Time Tobacco Smoking Status Former Smoker Nneka [facility]03/22/2021 12:10:28Do You Have An Advance Directive?Yes wvbcjimb7Fnpeofbtzgf not mtietehns44/19/2022Animal Exposure?Yesdcornett2 Information not qetyqendk82/09/2024re You Blind Or Do You Have Difficulty Seeing?Adwpwtsfjg0Aakaqippdoh not /19/2022Is Blood Transfusion Acceptable In An Emergency?Qtmyoyznfwk2Yobdurmhogc not njymvflib98/24/2020What Is Your Level Of Caffeine Consumption?Qtxtgdnbyfswwort3Vhcsomwsmrc not available 05/01/2023re You Deaf Or Do You Have Serious Difficulty Hearing?Nodcornett2 Information not yagsgkcku81/24/2020What Type Of Diet Are You Following?REGULAR qeldgawo6Unswbwaajpk not itdqxlcar91/16/2018Which Illicit Or Recreational Drugs Have You Used?Yyfshvopecnws5Tojdydzadef not ifutrsuda64/11/0911Abaofiwzf5 Year Ytczcnqfqlbwpfd9Wlmdpxppyab not cmrxyfmen70/09/2024re There Any Guns Present In Your Home?Sksmjisuvb8Esyqfoydxer not ohujfwvly78/09/2024Which Of Your Hands Is Dominant?Qesozlvpwsquu6Nnwestzdfwl not czijqvnnq46/24/2020Single Or Multi-level Home/work?Single Level Icwrijsvmfqf9Behijmqtmme not rrtwqecdt93/09/2024Live Alone Or With Others?With Tdbcbiyoehbofn8Usvejlhtqek not yfqutmjec72/09/2024oes The Patient Have Fever OR Cough OR Shortness Of Breath?Smbiupxcpf1Ikekuuyepfi not oputgyhhr94/24/2020In The Last 14 Days, Has The Patient Had Contact With A COVID-19 Positive Patient Or A COVID-19 Suspect Patient Awaiting Test Results?No nkukwjja1Fimopliixfk not dzitgqxqo26/24/2020If Pulse Oximetry Was Done: Is The Patient's Sp02 Less Than 93% On Room Air?Mkafftgzfy1Jqnezvaahts not available 09/25/2019Does The Patient Have At Least TWO Of These Symptoms? Diarrhea, Chills, Muscle Pain, Repeated Shaking & Chills, Headache, Sore Throat, Or New Loss Of Taste/KtjocJaulninzul8Mhmcsuedcoe not kkgxsavkh96/24/2020Marital Status Usumjwisgcqoguc2Auzlcsikdks not yswfftzix58/09/2024What Was The Date Of Your Most Recent Tobacco Screening?05/21/20247210cpdjomgy5Ouczsrgmrrq not available 05/14/2024Do You Have Any Pets?Gjforskyrw4Usiakbslfyp not yvoqsncmh86/19/2022 What Is Your Relationship Status?Tutgxrkntateqlm1Nsjtkmfpfxi not available 12/12/2020eat Belts Used ByiabgjfqIuudjembyfr2Pvblxmfsrhg not available 03/12/2023re You Sexually Active?Mhidypojvl0Sciqwxifmqq not jccfbvuxy26/09/2024 Smoke Alarm In MwlkYxpbtarhvza8Frgtoysztiy not sflestzix52/09/2024General Stress GkfnnSqwuuijjohx8Cqliddmadtc not muzewsdrj55/09/2024o You Use Sunscreen Routinely?Yvfjfyfxnow3Rivururxxoz not ouxlywvog82/09/2024 Sex: Unknown Functional Status Question Answer Note LastModified by Organization D etails LastModified Time Do you use any illicit or recreational drugs? No qlukbygk1Ndzhhqcqmlc not pyqpkgcgz42/19/2022o you or have you ever used any other forms of tobacco or nicotine?Cmuwodkqiw1Dqiqcwithlf not available 03/17/2021What is your level of alcohol consumption?Occasionaldcornett2 Information not diovevkcc72/16/2018Are you currently employed?Nodcornett2 Information not qkyxnlqlr88/12/2023Urinary incontinence assessment performed?No jtrcudga5Detcnvbbxjw not /09/2024re you able to walk independently without assistance or assistive devices?ASMYALEMAmmekcanm2Aewwxmrxajx not dsdugvmvz52/09/2024re you able to care for yourself independently?Yesdcornett2 Information not dvkotuewj19/24/2020What is your occupation?retireddcornett2 Information not zlywukjyk16/16/2018What is your exercise level?Occasional ytxjzglj5Giypsndbcec not iykcusjfp12/28/2024 Mental Status Question Answer Note LastModified by Organization D etails LastModified Time Do you feel stressed (tense, restless, nervous, or anxious, or unable to sleep at night)? [id number] derqyzby5Ihahznvwsqk not fjonsnyvh30/20/2025 Family History Relationship Description Onset Age of this Age Resolved Age Notes LastModified by Organization Details LastModified Time Father Diabetes mellitus wlqsyrfr0Sng qalvmcwtt51/20/2025 12:02:09FatherCerebrovascular accidentdcornett2 Not smgddshef08/20/2025 12:02:09FatherHypertensive irycedkixzhkzihy8Sjb xwuhdjrov67/20/2025 12:02:09FatherHeart tnkhstykqtlyrqw0Hxy /20/2025 12:02:09MotherDiabetes fafrcmoeoiaicbwn0Lxe snikcnlzc36/20/2025 12:02:09Mother Cerebrovascular ptbebywagntqadrp3Qos mvpjwfujf57/20/2025 12:02:09MotherGlaucoma uggrpaqh3Sig ljxvtosjm30/20/2025 12:02:09MotherRheumatoid inpcvusuljyhxhrdp0Qku zemwlhcyf51/12/2023 10:23:01MotherHypertensive zatyxlaewkroinee1Axn available 05/21/2024 12:02:09MotherHeart eudauchcsyhewof4Lut iwszbmrzy79/20/2025 12:02:09 Medical History Condition Response Heart Problems Y Rheumatic Fever Y Gallbladder Disease/Stones Y Arthritis N High Blood Pressure (Hypertension) Y Cancer Y Heart Disease/Valve Disease Y Back/Neck Pain N Pneumonia Y High Cholesterol (Hyperlipidemia) Y Blood Clot (Deep Vein Thrombosis) Y Thyroid Disease/Disorder N Immunizations Vaccine Type Date Status Note Provider Nam e and Address Organization Details Recorded Time zoster, unspecified formulation 07/01/2018 completed Nneka [facility]06/29/2021 17:33:30Influenza, split virus, quadrivalent, /30/2019completedNot FbsnvxujqLgsedyVsuldr41/06/2023 11:15:21 Influenza, split virus, quadrivalent, srzbcsdoghok23/01/2020completedNot KkkznhmhlOdigyhNdnjvs24/06/2023 11:15:21COVID-19, mRNA, LNP-S, PF, 30 mcg/0.3 mL dose1[facility] 17:33:30COVID-19, mRNA, LNP-S, PF, 30 mcg/0.3 mL dose04/05/2020ompleteAshly Doris [facility]06/29/2021 17:33:30COVID-19, mRNA, LNP-S, PF, 30 mcg/0.3 mL dose1completedTheresa Warner null, [facility]04/10/2022 17:26:35COVID-19, mRNA, LNP-S, PF, 30 mcg/0.3 mL dose, [facility], [place]-aqiklpz7406/15/2021ompletedTheresa Warner null, [facility]04/10/2022 17:26:35Influenza, adjuvanted, quadrivalent, PF 2completedTheresa Warner [facility], [facility]04/10/2022 17:26:35COVID-19 mRNA, bivalent, original/Omicron BA.1, Non-US Vaccine Product, IronPearl-YwoNNixn01/14/2022ompletedNot Available HtbnhnRiabic33/06/2023 11:15:22Influenza, high-dose, quadrivalent, PF11/03/2019 completedTheresa Warner null, [facility]04/10/2022 17:26:35Influenza, high-dose, quadrivalent, PF 11/25/2020ompletedTheresa Warner null, [facility]04/10/2022 17:26:35COVID-19, mRNA, LNP-S, PF, 30 mcg/0.3 mL dose04/02/2020ompletedTheresa Warner [facility], [facility]04/10/2022 17:26:35COVID-19, mRNA, LNP-S, PF, 30 mcg/0.3 mL dose04/26/2020ompletedTheresa Warner null, [facility]04/10/2022 17:26:44Deok7907/01/2018completedTheresa Warner null, [facility]04/10/2022 17:26:35Influenza, high-dose, trivalent, PF 12/01/2018completedTheresa Warner null, [facility]04/10/2022 17:26:35Influenza, high-dose, trivalent, PF 12/07/2016completedTheresa Warner null, [facility]04/10/2022 17:26:35Pneumococcal conjugate PCV 13103/05/2014 completedDarlenmark tello, [facility]06/29/2021 17:33:30Influenza, adjuvanted, trivalent, PF 12/07/2016completedNot TykpepoyfYipjkxHxtsja06/06/2023 11:15:22Influenza, adjuvanted, trivalent, PF01/03/2016completedDarlene Doris tello, [facility]06/29/2021 17:33:30pneumococcal polysaccharide HMF561603/04/2002 completedDarlenmark tello, [facility]06/29/2021 17:33:30 Past Encounters Encounter ID Performer Location Encounter Start Date Encounter Closed Date Diagnosis/Indication Diagnosis SNOMED-CT Code Diagnosis ICD10 Code Diagnosis IMO Codes Diagnosis Note [id number] Nacho Donohue MD [facility] [address] [address] 06/18/2017 10:58:19 06/18/2017 15:20:31 Gout 26716940 M10.9 stable, no changesEssential mbaauzvvavms74934892E92 stable, no changesVitamin D psmgmztogm97130108K34.9 no changesHistory of pulmonary tgfyjvd081658211I29.711 on anticoagulation, antiinflammatories are not an optionNeck irki01557346W84.2 at this time will treat with a muscle relaxer. We discussed potential side effects including sedation, slowed reflexes. Patient was asked to update us in a week and we will see if we need to further pursue additional treatment including either physical therapy or chiropractic.[id number] Donohue MD [facility] [address] [place] [address] 01/01/2018 11:53:231 14:33:08History of pulmonary zeamvvq530227490 Z86.711 on anticoagulation, antiinflammatories are not an optionVitamin D deficiency 00818793E18.9 no changes needed - to kvisotnEoqn83245997F29.9 has been stable, no changesEssential oyfrbubwedll61897116T16 stable, no changes neededStiff ojws823644694P21.6 on basis of DDD, DJD neck - discussed local care and analgesics - will monitor Dfdrphj52588468C13.9 will hold off on meds at this time - see me back april unless issues arise earlierPoor short-term yivnsz505923445Q82.3 at this time, this is mild and bears follow up in few monthsHyperlipidemia 24392991D43.5 due for updated talvlarXgsqeunvlh163042766L41.3 exercise [id number] J Rolins, [facility] [address] [place] [address] 02/19/2018 12:01:0902/19/2018 12:29:76Pbwmoewrmc708425416S41.3 Diet: 1800 Calories Low Glycemic Diet Exercise: Work up to 30 min 5x/week as toleratedNeck wpzk93224949F16.2 at this time will treat with a muscle relaxer. We discussed potential side effects including sedation, slowed reflexes. Patient was asked to update us in a week and we will see if we need to further pursue additional treatment including either physical therapy or chiropractic.Essential rkkjonerenjs30775900 I10 stable, no changes [id number] [facility] [address] [place] [address] 03/21/2018 10:40: 11:21:43Neck pwyr93669816Z49.2 no real change - has not seen improvement with muscle relaxerEssential liqbheruynre55086315E45 stable, no changes neededCervical whunzlgnlli255296895F22.812 discussed x-[id number] [facility] [address] [place] [address] 01/01/2019 15:59:281 17:42:05Adult health hjpihcxcwvf924154938U05.00 Patient to drop off living will and power of commonwealth attorney. we discussed recommendations for vaccinationand screening, activity levels, etc. He will bring in Advanced Directive mdinmlQxwrulnbyj625825272V58.3 Diet: 1800 Calories Low Glycemic Diet Exercise: Work up to 30 min 5x/week as lliahnonyViqi50361090M35.9 has been stable, no changesEssential yoblsqfozppt74870481A02 stable, no changes kewgkcLvhtarl13856003J52.83 start with some lab testingPoor short-term nilsvs773747260V21.3 Will consider central imaging. Holding off because of his perfect score in MMSE. Will follow up in three months.Prostate specific antigen above reference range 573337475B02.[id number] [facility] [address] [facility],[address] [address] 09/28/2019 13:11:54009/28/2019 16:40:30Leskiiclig315573661B56.3 Diet: 1800 Calories Low Glycemic Diet Exercise: Work up to 30 min 5x/week as toleratedEssential nydjseojuwqg07506876G84 stable, no changes ayxuqqPyeb83479979S24.9 has been stable, no changes - labs in DecemberPoor short-term rbmelt214667436 R41.3 has not worsened. will monitor.Prostate specific antigen above reference range 134119035E95.20 had been down in March and we have decide to not continue to check - he has no symptoms referableto bones, urinary tractVitamin D vchdrpksuc33863978C82.9 last check 2018 was normal - no need to recheckHistory of pulmonary embolus 244134208L90.711 on anticoagulation, antiinflammatories are not an option. INR in one [id number] Nacho Donohue [facility] [address] [facility],[address] [address] 07/12/2020 17:48:0005/02/2021 12:40:54Adult health saslmvshsxq265637251Q76.00 Patient to drop off living will and power of commonwealth attorney. we discussed vaccinations and he is up-to-date. We discussed diet and activity, importance of dental examinationsBody mass index 25-29 - fvjgbhofin753765760Y61.26 nothing new to advise at this timeEssential dlpkppjcmfhn51262250C30 stable, no changes needed at this yygwYphd28089913Q16.9 has been stable, no changes are needed. Since we are checking labs, uric acid wljeuWotjpmh77581143D13.9 has recently worsened according to pt. will hold off on meds at this time - Prostate specific antigen above reference ypiwl436611858X53.20 patient worried about this and we will monitor her with an updated [id number] Nacho Donohue, [facility] [address] [facility],[address] [address] 11/25/2020 13:33:18011/28/2020 09:54:72Lmkuuhrxrycif05023030L37.9 status post laparoscopic cholecystectomy; he is doing well, eating well and eliminating well.Body mass index 25-29 - dlgtnbfhxt016260510Z22.26 nothing new to advise at this timeParesthesia of upper ozrz68890812T92.2 fingertip of right hand without dysfunctionEssential onybffmdsiks72046632F54 has been stable, no changes are needed at this osgeLgse15736864C46.9 has been stable, no changes are needed. will check and updated levelAnxiety 11753510E82.9 has been stable - will monitor at this time -Prostate specific antigen above reference hwuns876316249R62.20 patient worried about this and we will monitor, with an updated [id number] Nacho Donohue, [facility] [address] [facility],[address] [address] 12/12/2020 12:46:441 13:58:42Body mass index 25-29 - overweight 031087384O50.26 nothing new to advise at this timeEssential nqswkvmhrcdw77891517L22 will have him monitor at home, bring in readings to next visit and we will decide if he needs to get back on antihypertensive medicationHistory of pulmonary rssyjuf157852319E78.711 on anticoagulation, antiinflammatories are not an option. INR in one weekPoor short-term edzbeq773493557U21.3 has not worsened. will monitor.Prostate specific antigen above reference range 428632993X90.20 patient worried about this and we will monitor, with an updated testVitamin D xiddiraaya82569057N46.9 last check 2017 was normal - no need to cbaviqxBjjq67058626J13.9 has been stable, no changes are needed. recent level looked good. will monitor Wbzlqvc35351939H43.83 he describes being more energetic recently and we will monitor thisHyperglycemia 50115974L11.9 he was not fasting for the test; will monitor this - he watches carbohydrate [id number] J Rolins, [facility] [address] [facility],[address] [address] 03/22/2021 12:03:56003/23/2021 10:59:40Essential mmqomvpirnib11332201J16 he monitors at home. Numbers are looking good. No changes are needed. I want to see him before he leaves for the summerHistory of pulmonary nrsjyal941064255 Z86.711 not on anticoagulation any longer. nothing new to ekrGhty07764928T77.9 has been stable, no changes are needed.Jqaseat66964283F39.83 he describes being more energetic recently and we will monitor thisPoor short- term riaebg968488636K70.3 has not worsened. will monitor.Prostate specific antigen above reference range 704779910U10.20 improved number - check one yearVitamin D gasvekutkh19925699Y79.9 last check 2018 was normal - no need to mhviaxyDwgzlgrcxp265912138N48.3 Diet: 1800 Calories Low Glycemic Diet Exercise: Work up to 30 min 5x/week as [id number] J Rolins, [facility] [address] [facility],[address] [address] 03/15/2022 10:21:02003/15/2022 12:27:04Adult health mngegdcazvk006408969X03.00 Patient will drop off living will and power of commonwealth attorney. we discussed vaccinations and he is up-to-date. We discussed diet and activity, importance of dental examinationsHealth education ptjoz593382308V47.9 health education givenProstate specific antigen above reference ewdls465046779 R97.20 improved number - patient requests a recheckPoor short-term zbebju076896102J46.3 has not worsened. will monitor. discussed driving, etc - will monitor Essential tuyeluarxlfz85915377G26 he monitors at home. Numbers are looking good. No changes are needed. I want to see him before he leaves for the tutrkdFqvs69213291X65.9 has been stable, no changes are needed.Vitamin D otfoqircdx20125954Q24.9 last check 2017 was normal - patient requests a cbdfcjmGxhsjdbxox752040669J59.3 Diet: 1800 Calories Low Glycemic Diet Exercise: Work up to 30 min 5x/week as edifsenafBkxxcbtktltxq37436852O54.9 he was not fasting for the test; will monitor this - he watches carbohydrate aczihoCsuzdvsduhyplx06975696Q37.5 due for updated [id number] J Rolins, [facility] [address] [place] [address] 04/18/2022 11:36:32004/18/2022 16:03:11Nvidohmzsx320189290O92.3 Diet: 1800 Calories Low Glycemic Diet Exercise: Work up to 30 min 5x/week as toleratedFolic acid hwqhzxclwv970203962S86.8 He has been taking folic acid daily for about 2 weeks. We discussed his other lab resultsPoor short-term kjwvsu429021223I92.3 has not worsened. will monitor. discussed driving, etc - will monitor him - he scores 29 out of 30 on Mini-Mental Status Examination today (single point off for date) and he passes the clock drawing test. We will want to see him back again before he leaves for the season in early July. He will see me in late June. B-12 level is in the lower end of normal range so I advised him to start a B-12 1000 ??g kyof-lgp-mnksnuq supplement daily. This will also be checked in late NveuiIwezy69338239K91.9 This had resolved. Nothing new to add at this timeProstate specific antigen above reference msgob373180107F91.20 Stable. We will continue to [id number] [facility] [address] [place] [address] 02/06/2023 11:15:1412 07:44:01Essential caalzygvvlno05871544U15 he monitors at home. Repeat numbers improved. No changes will be madeGout 08372445M58.9 has been stable/quiet. Nothing additional neededHistory of pulmonary embolus 468310377D38.711 not on anticoagulation any longer. nothing new to addVitamin D deficiency 54220720E81.9 last check 2018 was normal -not taking supplement. Not interested in additional hxhafcmSrseombnlc778319956L61.3 Diet: 1800 Calories Low Glycemic Diet Exercise: Work up to 30 min 5x/week as toleratedPoor short-term okqtwm618720318A78.3 has been about the same - will [id number] J Rolins, [facility] [address] [place] [address], [place] [address] 05/01/2023 10:00:40005/02/2023 09:35:55Adult health kpxicwqdahm604927496V88.00 Patient will drop off living will and power of commonwealth attorney. we discussed vaccinations and he is up-to-date. We discussed diet and activity, importance of dental examinationsHealth education lkssr862864290I52.9 health education givenPain of left hip elhll184784536667213J84.552 Persistent pain. We will check x-raysEssential kqzxaikjuvdg89626813L79 he monitors at home. Repeat numbers improved. No changes will be madeGout 52370582R91.9 has been stable/quiet. Nothing additional neededFolic acid cpfijcyyyb207236611 E53.8 He had previously supplemented this - will recheckHistory of pulmonary embolus 339440074X91.711 not on anticoagulation any longer. nothing new to addVitamin D deficiency 82683522A30.9 last check 2018 was normal -not taking supplement. Not interested in additional testingPoor short-term aopswo921500000Z21.3 has been progressing - will check labs and consider MRI zwyajZrmsymwjzl871233580 E66.3 Diet: 1800 Calories Low Glycemic Diet Exercise: Work up to 30 min 5x/week as lwyuvcwqiZxcmh02735998T32.9 This had resolved. Nothing new to add at this [id number] Donohue MD [facility] [address] [address] [place] [address] 05/20/2023 16:55:3303/ 07:56:[id number] Diet: 1800 Calories Low Glycemic Diet Exercise: Work up to 30 min 5x/week as toleratedLow back [id number] education and analgesic recommendations provided to pt - education provided [id number] Donohue, [place] [facility] [address] [place] [address] 05/21/2024 11:59:15005/22/2024 06:15:03Malignant neoplasm of [id number] metastatic - diagnosed March He is being treated with chemotherapyChronic systolic heart [id number] Reduced ejection fraction noted on echo while in the hospital. He has decreased breath sounds at the bases, which may be reflective of pleural effusions. He is breathing comfortably however and he fernanda dual diuretics as well as Entresto. He is on low-dosevJardiance and is off the beta-ghazal at this time because of the low blood pressureChronic kidney disease stage [id number] recent labs at on 05/18. We need to gather these results and I told the and patient that we would get back in touch with them regarding updates once I have those results.Low blood itdlsyrs48628190W38.9 He is on midodrine daily. reports his salt intake is moderate and I suggested he consider cutting back on this. We discussed fluid recommendations for the dayAtrial fnkbokibjhqu48309192X57.91 He is in sinus rhythm at this time. He will continue Eliquis and see cardiology as scheduled. PET CT of the heart is scheduled before cardiology's visit Health Concerns Section Related Observation LastModified by Organization Detai ls LastModified Time None Recorded Concern Status LastModified by Organization Details LastModified Time None Recorded Advance Directives Directive Y: Payers Insurance Date Sequence Insurance Name Policy Number Policy Tuttle Covered Member ID Tuttle Member ID Guarantor Name 06/01/2024 1 [place] Kwame Benavides [id number] S [id number]*SELF PAY*Kwame Benavides Pogose [id number]NONEJerome S [id number] S [id number] Elieser Benavides [id number] S Pogose Notes Date Note Type Note Provider Name and Address Lianne murray Details Recorded Time 04/18/2022 text/html She is here for evaluation of a persistent cough. Actually here for worsening memory. We saw him inJanuary for a wellness visit. No recent chest x-ray noted He has no trouble driving but he may forget some directions for places that he is less familiar with. MMSE today - April 16, 2022, Saturday - winter; [facility]; concentration 07/06. recallexcellent - scores Nacho Donohue MD [address], [place], [address], [facility]04/18/2022 12:17:5402/06/2023text/html Patient is here for a follow-up visit, having returned recently, from [place], for the season.he is becoming forgetful. On no meds - he has no new complaints. coffee with cinnamon toast and breakfast - vegetables for lunch, light dinner and he eliminates wellNacho Donohue MD [address], [place], [address], [facility]02/06/2023 11:30:1702/text/htmlMedicare AWV/IPPE Reported by PatientFunctional AbilityFor hearing, patient reportsno limitations. For vision, patient reportsno limitations. For speech, patient reportsnormal. Activities of Daily LivingFor mobility, patient reportsno limitations. For transferring, patient reportsno limitations. For toileting, patient reportsno limitations. For bathing, patient reportsno limitations. For eating, patient reportsno limitations. For dressing, patient reportsno limitations. For activities, patient reportsexercises on a regular basis,recent increase in physical activity, andgood physical condition.Instrumental Activities of Daily LivingFor medication management, patient reportsno limitations. For shopping, patient reportsno limitations. For housework, patient reportsno assistance required. For financial, patient reportsno limitations.Home Safety:For home safety, patient reportsreviewed and discussed shower safety,benefit of guard rails,minimizing clutter,seat belt use,driving precautions,transition zones between hard floors and carpet, andregular routine exercise recommended to improve adl/idl and reduce fall risk.Advance DirectiveFor legal documents on file for advance directive, patient reportspatient does not have an advance directive in the chart. patient was instructed to bring a copy of their advance directive to the office. patient did not receive advance directive counseling and information..Substance Use DisordersFor substance use disorders, patient reportsno craving or strong desire to use,no reported impairment in functioning, andno withdrawal. Is here for a wellness visit and to discuss hip pain - left sided - after fall before going to [place] - he also took sutures in head - did CT head but no xrays hip done - We saw him last in February. He is overdue for lab testing Advanced directives are not in the chart - has these at home diet balanced - low salt and minimal caffeine, no alcohol - not exercising regularly regular eye exams - no dentist visits We discussed vaccinations including the new RSV vaccination - had flu, RSV, COVID in [place] - hewill think about the shingles vaccinationNacho Donohue MD [address], [place], [address], [place] [facility]zehprp8605/01/2023 10:45:text/html here for back pain - this has resolved recently had an URI and the CXR was negative for pneumonia he took only single Tylenol tablet at bedtime when pain was worst - no leg pain he leaves for [place] tomorrow for a month, with his wifeNacho Donohue MD [address], [place], [address], [place] [facility]/20/2023 17:32:text/html Patient is here for a transition of care visit. He is here with his today. We last saw him a year ago. We attempted to use our scribe service but it is not working for this visit. reports that he was admitted to [facility] on May 08 and discharged the following Saturday. We have a discharge summary listing admission date of May 11. He was admitted between May 11 and through [facility] for fluid overload/dyspnea in the setting of metastatic prostate cancer. Contact was made on May 14 when the appointment was made for today. Medication list is presented for reconciliation.Patient is not short of breath at the present time.He is generally weak but has had no fever or cough. He sleeps on a single pillow. He does not have orthopnea. His legs are not swollen at this time. reports that he had laboratory testing earlier this week done by his out of area provider, and his midlevel provider, Carolyn Rowley. These were done at [facility]. Apparently the patient has renal insufficiency He has an appointment scheduled with cardiology on June 02 but has a heart PET scan scheduled first Additional history includes hospitalization in March for influenza A. He had received the seasonal influenza vaccination Nacho Donohue MD [address],[facility] [address], [place], [address], [facility] - [facility]oztgkv5205/21/2024 12:58:23
--- OUTSIDE RECORDS SUMMARY | 2025-02-27 12:25 | XMS_ITS | Patient Health Record ---
Author Organization [facility] Address [address] [place] [address] Care Team Providers Care Investment Professional Name Role Phone Sami Rodríguez Unavailable Tiffanie Talbot Unavailable Pradeep Michelle Unavailable [phone] Migration, Provider Unavailable Unavailable Allergies No Known Allergies Results Component Value Reference Range Notes CTA CHEST Reviewed date:05/08/2024 12:00:00 AM Interpretation: Performing Lab: Notes/Report: EKG Reviewed date:05/18/2024 12:00:00 AM Interpretation: Performing Lab: Notes/Report: Echo Reviewed date:05/10/2024 12:00:00 AM Interpretation: Performing Lab: Notes/Report: PET CT W/HEARTSEE Reviewed date: Interpretation: Performing Lab: Notes/Report: PET CT W/HEARTSEE 1 [id number] W/HEARTSEE [id number] CT W/HEARTSEE 3 [id number] Reviewed date: Interpretation: Performing Lab: Notes/Report: ELECTROCARDIOGRAM/ECG [id number] Reviewed date:06/04/2024 12:00:00 AM Interpretation: Performing Lab: Notes/Report: Dipyrid PET/CT Reviewed date:05/26/2024 12:00:00 AM Interpretation: Performing Lab: Notes/Report: Reason For Referral No Information Medications Medication SIG (Take, Route, Frequency, Duration) Notes Start Date End Date Status prednisoLONE 5 MG Tablet take 1 tablet by oral r oute every day with food Oral 5ActiveEliquis 5 MG Tablettake 1 tablet by oral route 2 times every day Oral06/04/2024tiveabiraterone 250 mg tablet 250 mg TABLETtake 2 tablet by oral route every day with water on an empty stomach at least 1 hour before or 2 hours afterfood ORAL*Reorder from [employer] for eRx and Interaction Alerts*06/04/2024 ActiveMidodrine HCl 2.5 MG Tablettake 1 tablet by oral route 2 times every day as needed for SBP >90mmhg Oral06/04/2024tiveSpironolactone 25 MG Tablettake 1/2 tablet by oral route every day Oral06/04/2024tiveJardiance 10 MG Tablet take 1 tablet by oral route every day in the morning Oral5Active Furosemide 20 MG Tablettake 1 tablet by oral route every other day Oral 06/04/2024tiveOTC Supplements Oralonce a day Oral*Reorder from [employer] for eRx and Interaction Alerts*5ActiveMetoprolol Succinate ER 25 MG Tablet Extended Release 24 Hourtake 1/2 tablet by oral route every am if SBP >100mmhg Oral06/04/2024tiveEntresto 24-26 MG Tablettake 1/2 tablet by oral route 2 times every day Oral5Active Social History Social History Additional DetailsCategorySocial InfoOptionsDetailsMigrated Social History Migrated Social HistoryHave you used tobacco: R,Tobacco use status: former, cigarette,Do you drink alcohol: N,Do you drink/consume caffeine: Y,Caffeine Type: coffee,Caffeine per day: 1 cup,Exercise frequency: never,Diet History: none Problems Problem Type SNOMED Code ICD Code Onset Dates Problem Status W/U Status Risk Notes Problem Malignant neoplasm o f prostate (248973103) Malignant neoplasm of prostate (C61) ActiveconfirmedProblemAtrial fibrillation (73815913)Unspecified atrial fibrillation (I48.91)ActiveconfirmedProblemAcute systolic heart failure (459378694)Acute systolic (congestive) heart failure (I50.21)Activeconfirmed ProblemHypotension (52122491)Other hypotension (I95.89)ActiveconfirmedProblem Embolism from thrombosis of vein of lower extremity (942357144)Acute embolism and thombos unsp deep vn unsp lower extremity (I82.409)Activeconfirmed Vital Signs Heart Rate 74 /min 06/08/2024 Height-cm172.72 cm06/08/20241388Lseqqwsv084 %06/08/2024lood pressure auzjnchmw16 mm Hg06/08/2024Weight-kg70.76 kg06/08/2024MI Epcsonwzwe77.72 %06/08/2024Height 68.00 in06/08/2024lood pressure fwefimlx823 mm Hg06/08/20248205Wfvifu466.00 lbs 06/08/2024BMI23.72 kg/m206/08/2024 Encounters Encounter Location Date Provider Diagnosis Migrated_Facilit y 0 0 05/10/2024 Provider Migration Heart failure , unspecified I50.9 ; Cardiomegaly I51.7 ; Personal history of malignant neoplasm of prostate Z85.46 and Personal history of other diseases of the respiratory system Z87.09 Migrated_Facilit y 0 0 05/11/2024 Provider Migration Malignant reny plasm of prostate C61 ; Unspecified atrial fibrillation I48.91 ; Heart failure, unspecified I50.9 and Pleural effusion, not elsewhere classified J90 [facility] [address] [place] [address] 05/18/2024 Sami Rodríguez Hyperlipidemia, unspecified E78.5 ; Acute systolic (congestive) heart failure I50.21 ; Other hypotension I95.89 ; Encounter for follow-up examination after completed treatment for conditions other than malignant neoplasm Z09 and Body mass index (BMI) 25.0-25.9, adult Z68.25 [facility] [address] [facility] [address] [place] [address] 05/26/2024 Tiffanie Talbot Acute systolic (congestive) heart failure I50.21 Migrated_Facilit y 0 0 05/27/2024 Provider Migration 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 ; Heart failure, unspecified I50.9 ; Acute kidney failure, unspecified N17.9 and Chronic atrial fibrillation, unspecified I48.[address] [address] 06/04/2024 Michelle Fernández Hyperlipidemia, unspecified E78.5 ; Essential (primary) hypertension I10 ; Unspecified atrial fibrillation I48.91 ; Unspecified systolic (congestive) heart failure I50.20 ; Other hypotension I95.89 ; [facility] (current) use of anticoagulants Z79.01 and Body mass index (BMI) 24.0-24.9, adult Z68.[address] [address] 06/08/2024 Michelle Fernández Hyperlipidemia, unspecified E78.5 ; Essential (primary) hypertension I10 ; Unspecified atrial fibrillation I48.91 ; Unspecified systolic (congestive) heart failure I50.20 ; Acute systolic (congestive) heart failure I50.21 ; Other hypotension I95.89 ; [facility] (current) use of anticoagulants Z79.01 and Body mass index (BMI) 23.0-23.9, adult Z68.23 Migrated_Facilit y 0 0 06/03/2024 Provider Migration Migrated_Facility0 Provider MigrationMigrated_Facility0 Provider MigrationMigrated_Facility0 Provider Migration Assessments Encounter Date Diagnosis (ICD Code) Assessment Notes Treatment Notes Treatment Clinical Notes Section Notes 05/10/2024 Heart failure, unspecified (ICD- 10 - I50.9) 05/10/2024ardiomegaly (ICD-10 - I51.7)05/10/2024Personal history of malignant neoplasm of prostate (ICD-10 - Z85.46)05/10/2024Personal history of other diseases of the respiratory system (ICD-10 - Z87.09)05/11/2024Malignant neoplasm of prostate (ICD-10 - C61)05/11/2024Unspecified atrial fibrillation (ICD-10 - I48.91)05/11/2024Heart failure, unspecified (ICD-10 - I50.9)05/11/2024Pleural effusion, not elsewhere classified (ICD-10 - J90)05/18/2024Hyperlipidemia, unspecified (ICD-10 - E78.5)5Acute systolic (congestive) heart failure (ICD-10 - I50.21)05/18/2024Other hypotension (ICD-10 - I95.89)05/18/2024 Encounter for follow-up examination after completed treatment for conditions other than malignant neoplasm (ICD-10 - Z09)05/18/2024ody mass index (BMI) 25.0-25.9, adult (ICD-10 - Z68.25)05/26/2024ute systolic (congestive) heart failure (ICD-10 - I50.21)05/27/2024Hypertensive heart disease with heart failure (ICD-10 - I11.0)05/27/2024Heart failure, unspecified (ICD-10 - I50.9)05/27/2024 Acute kidney failure, unspecified (ICD-10 - N17.9)05/27/2024hronic atrial fibrillation, unspecified (ICD-10 - I48.20)06/04/2024Hyperlipidemia, unspecified (ICD-10 - E78.5)06/04/2024Essential (primary) hypertension (ICD-10 - I10) 06/04/2024Unspecified atrial fibrillation (ICD-10 - I48.91)06/04/2024Unspecified systolic (congestive) heart failure (ICD-10 - I50.20)06/04/2024Other hypotension (ICD-10 - I95.89)06/04/2024Long term (current) use of anticoagulants (ICD-10 - Z79.01)06/04/2024ody mass index (BMI) 24.0-24.9, adult (ICD-10 - Z68.24) 06/08/2024Hyperlipidemia, unspecified (ICD-10 - E78.5)06/08/2024Essential (primary) hypertension (ICD-10 - I10)06/08/2024Unspecified atrial fibrillation (ICD-10 - I48.91)06/08/2024Unspecified systolic (congestive) heart failure (ICD- 10 - I50.20)5Acute systolic (congestive) heart failure (ICD-10 - I50.21)06/08/2024Other hypotension (ICD-10 - I95.89)06/08/2024Long term (current) use of anticoagulants (ICD-10 - Z79.01)06/08/2024ody mass index (BMI) 23.0-23.9, adult (ICD-10 - Z68.23) Plan Of Treatment No Information Insurance Providers Payer Name Payer Address Payer Phone Subscriber Number Group Number Insured Name Patient Relationship to Insured Coverage Start Date Coverage End Date [facility] Medicare [address] [place] [address] [id number] Chaim Ocampo - patient [facility] the [facility] Healthcare Options Medicare Supplement[address] [place] [id number], JeromeSelf - patient is the insured Medical (General) History Surgical History Surgery Date(Month/Year) Sx_Procedure : Cholecystectomy
[2025-02-27 12:46] VITALS: BP 121/68; PULSE 75; RESP 18; TEMP 36.4; O2SAT 98; BMI 27.5
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
[2025-02-27] MEDS: TETANUS/DIPHTH/PERTUSSIS 0.5 ML SYRINGE IM (13:59)
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
--- OUTSIDE RECORDS SUMMARY | 2025-02-28 02:18 | XMS_ITS | Clinical Summary ---
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 Medications MedicationSigDispense QuantityRefillsLast [...] 03/18/2024History of elevated PSA - 2015 - [place] - (7.4) March 2022 03/18/2024Neuropathic pain, leg, right03/18/2024hronic gout without tophus, unspecified cause, unspecified site03/18/2024ute deep vein thrombosis (DVT) of calf muscle vein of left lower jhhtmnmha96/14/2025Prostate lisisw1203/06/2024 Pathologic vertebral gupednga54/03/2025Paroxysmal atrial vzkwpyfdwyrv07/03/2025 Chronic ubqnwgzhhvyckvj18/03/2025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, initial uwayycliq14/03/2025History of alcohol abuse Resolved Problems ProblemNoted DateDiagnosed DateResolved DateAcute zouiupcdeyivd69/22/2021 03/17/20244378Mtiegftiohqpuxbwoof32/22/202101/9271Obylsedhicjwpl34/21/2021 03/17/2024 Overview (08/23/2020): Added automatically from request for surgery [id number] Encounters DateTypeDepartmentCare AgsaSurcsiovlbl49/27/2025 2:25 PM CSTOffice Visit [facility] [address] [address] Miko Dale, PASabinoC Avulsion of skin of forearm, initial encounter (Primary Dx); Right elbow pain02/27/20251057Utgsfk58/19/2025 9:00 AM CSTAllied Health/Nurse Visit [address] [address] [facility] [place] [phone] Christiano Rojas MD Injections (Xgeva Injection)02/19/2025 8:30 AM CSTOncology Visit [address] [address] [facility] [place] [phone] Nigel Alicea PA Prostate cancer (H) (Primary Dx); 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)02/18/2025 10:40 AM CSTOffice Visit [facility] [address] [phone] Elva Ronquillo PA-C Acute bacterial conjunctivitis of both eyes (Primary Dx)02/18/2025 10:15 AM CABINETMAKER MAINTENANCE Lab 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 [place] [address] Christiano Rojas MD Allied Health Visit (INJECTION)01/08/2025 11:00 AM CSTOncology Visit [address] 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, initial encounter 12/30/2024 12:53 PM CDT - 12/30/2024 11:59 PM CDTHospital Encounter [facility] [address] [facility] [address] [place] [address] Christiano Rojas MD Discharge Disposition: Home or Self Care12/30/2024 9:12 AM CDT - 12/30/2024 12:52 PM CDTHospital Encounter [facility] [address] [facility] [address] [place] [address] Christiano Rojas MD Prostate cancer (H); 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); 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, initial encounter; Acute deep vein thrombosis (DVT) of calf muscle vein of left lower extremity (H) Discharge Disposition: Home or Self Care12/30/2024 9:03 AM CDT - 12/30/2024 9:11 AM CDTHospital Encounter [facility] [address] [facility] [address] [place] [address] Christiano Rojas MD Prostate cancer (H); 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); 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, initial encounter; Acute deep vein thrombosis (DVT) of calf muscle vein of left lower extremity (H) Discharge Disposition: Home or Self Care12/30/20240217Firxqy76/24/2025Travel 12/10/2024Orders Only [facility] [address] [place] [address] Elva Corrales RPH 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); Prostate cancer (H); 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, initial encounter from Last 3 Months Immunizations ImmunizationAdministration DatesNext DueInfluenza (High Dose) Trivalent,PF (Fluzone)12/13/2023,11/13/2015,11/28/2014,11/22/2013,12/30/2012Pneumo Conj 13-V (2010&after)01/03/2015,12/31/2014Pneumococcal 23 jggojb3701/18/2010,03/04/2002RSV Vaccine (Arexvy)12/25/2022TDAP (Adacel,Boostrix)03/26/2023,07/01/2018Td (Adult), Vzfiylmv43/01/2007,05/11/1996Zoster Vaccine, Unspecified (historical)07/01/2018 Zoster vaccine, live11/28/2014 Social History Tobacco UseTypesPacks/DayYears UsedDateSmoking Tobacco: FormerSmokeless Tobacco: Never Tobacco Cessation:Counseling Given: Not Answered Comments:quit age 28 Alcohol UseStandard Drinks/WeekCommentsNot Currently0 (1 standard drink = 0.6 oz pure alcohol)stopped ETOH 2014PHQ-2AnswerDate RecordedPHQ-2 Eqjqo434 Adolescent EducationAnswerDate RecordedGetting School Help NeededNot on [...] in an abandoned building, in an overnight halfway, or couch-surfing.)Yes03/17/2024re you worried about losing your [...] ex-partner?Yes03/08/2024Sex and Gender InformationValueDate RecordedSex Assigned at EdklqNloq03/20/2025 10:09 AM CSTLegal TbgTvne34/04/2012 4:01 AM CSTGender CgujeffjXids12/20/2025 10:08 AM CSTSexual UyesaowdiroBhdpbtkg79/20/2025 10:08 AM CSTOccupationIndustry Job Start DateJob End DateEncryption communication telephoneNot on fileNot on fileNot on file Last Filed Vital Signs Vital SignReadingTime TakenCommentsBlood Czbnkwxr062/5802/27/2025 11:23 AM CABINETMAKER MAINTENANCE Xmvui370102/27/2025 11:23 AM DSDMqbdwmqbjpe36.2 ??C (97.1 ??F)02/19/2025 8:19 AM CSTRespiratory Bhkz038804/30/2024 11:23 AM CSTOxygen Bskulvomfi96%02/27/2025 11:23 AM CSTInhaled Oxygen Concentration--Fysfux84.1 kg (181 lb)02/27/2025 11:23 AM QGEPjnwuq139.7 cm (5' 8)02/27/2025 11:23 AM CSTBody Mass Index27.5202/27/2025 11:23 AM CABINETMAKER MAINTENANCE Plan of Treatment DateTypeDepartmentCare Team (Latest Contact Info)Opotqbcppca23/29/2025 2:[address] [address] [place] [phone] [place] [address] [place] [address] 04/08/2025 10:[address] [facility] [address] [place] [phone] 04/09/2025 11:00 AM CSTOncology Visit [facility] [address] [address] [facility] [place] [address] Christiano Rojas MD [address] [address] 04/09/2025 12:30 PM CSTAllied Health/Nurse Visit [address] [facility] [place] [address] Christiano Rojas MD [address] [address] 04/20/2025 9:20 AM CSTOffice Visit [facility] [address] [facility] [address] [place] [phone] Pepe Sierra PA-C [address] [place], [place] [phone] Health MaintenanceDue DateLast DoneCommentsADVANCE CARE CJHBSSFR82/18/1937HF ACTION PLAN1936ZOSTER VACCINE (1 of 2), 11/28/2014 MEDICARE ANNUAL WELLNESS VISIT5005/01/2023, 06/24/2014, 10/02/2012NNUAL REVIEW OF HM MWWHQU24FALL RISK WXAVBYUVZP65 COVID-19 VACCINE (9 - Pfizer risk 2024- season)/03/2024, 12/13/2023, 01/17/2023, Additional history cgseppJKQ82//, 01/07/2025, 2024, Additional history hgwtsaVUFMY78/8/LT , 01/07/2025, 2024, Additional history existsCBC , 01/07/2025, 2024, Additional history exists DTAP/TDAP/TD VACCINE (3 - Td or Tdap)401/, 07/01/2018, 09/01/2006, Additional history existsPNEUMOCOCCAL VACCINE 50+ YEARSCompleted 01/03/2015, 12/31/2014, 01/18/2010, Additional history existsRSV VACCINE Nvzdensyu99/24/2023PHQ-2 (once per calendar year)Nbjeoqwnm83/23/2025, 03/17/2024, 03/17/2024TSH W/FREE T4 SHDPFXUgqrjzhhe75/18/2025INFLUENZA VACCINE Lvnmiiicg24/01/2025, 12/13/2023, 11/13/2015, Additional history existsHPV VACCINE (No [...] not send urgent or symptomatic messages through [employer]. I will contact scheduling to arrange or make changes in my appointments. 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, initial encounter Acute deep vein thrombosis (DVT) of calf muscle vein of left lower extremity (H) D DIMER TGDGLXGECOKDLjpxwys65/18/2025 10:04 AM CABINETMAKER MAINTENANCE Prostate cancer (H) 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, initial encounter Acute deep vein thrombosis (DVT) of calf muscle vein of left lower extremity (H) TESTOSTERONE MQGEUJvezjyt98/18/2025 10:04 AM CABINETMAKER MAINTENANCE Prostate cancer (H) 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, initial encounter Acute deep vein thrombosis (DVT) of calf muscle vein of left lower extremity (H) PSA WRMSBZSAQUEphnkrt18/18/2025 10:04 AM CABINETMAKER MAINTENANCE Prostate cancer (H) 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, initial encounter Acute deep vein thrombosis (DVT) of calf muscle vein of left lower extremity (H) COMPREHENSIVE METABOLIC CNLPKDoqzifd13/18/2025 10:04 AM CABINETMAKER MAINTENANCE Prostate cancer (H) 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, initial encounter Acute deep vein thrombosis (DVT) of calf muscle vein of left lower extremity (H) DNGRAZOTFNPzituik21/18/2025 10:04 AM CABINETMAKER MAINTENANCE Prostate cancer (H) 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, initial encounter CBC WITH PLATELETS & QCWTPHLSDYRYNnmamfj04/06/2025 10:33 AM CABINETMAKER MAINTENANCE Prostate cancer (H) 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, initial encounter Acute deep vein thrombosis (DVT) of calf muscle vein of left lower extremity (H) CBC WITH PLATELETS AND GZVRVMTAGDUQSzixqhk31/06/2025 10:33 AM CABINETMAKER MAINTENANCE Prostate cancer (H) 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, initial encounter Acute deep vein thrombosis (DVT) of calf muscle vein of left lower extremity (H) D DIMER KOFHKFZQUURHQuuoeup49/06/2025 10:33 AM CABINETMAKER MAINTENANCE Prostate cancer (H) 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, initial encounter Acute deep vein thrombosis (DVT) of calf muscle vein of left lower extremity (H) TESTOSTERONE TUJCYGgixjyn83/06/2025 10:33 AM CABINETMAKER MAINTENANCE Prostate cancer (H) 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, initial encounter Acute deep vein thrombosis (DVT) of calf muscle vein of left lower extremity (H) PSA QUKWLTJOHQKwpjgzq97/06/2025 10:33 AM CABINETMAKER MAINTENANCE Prostate cancer (H) 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, initial encounter Acute deep vein thrombosis (DVT) of calf muscle vein of left lower extremity (H) COMPREHENSIVE METABOLIC JZXZILwaxumy57/06/2025 10:33 AM CABINETMAKER MAINTENANCE Prostate cancer (H) 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, initial encounter Acute deep vein thrombosis (DVT) of calf muscle vein of left lower extremity (H) TGQCWXIBQKFjwievq58/06/2025 10:33 AM CABINETMAKER MAINTENANCE Prostate cancer (H) 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, initial encounter NM BONE SCAN WHOLE YMPMOhchbnl90/29/2025 1:37 PM CDT Prostate cancer (H) 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, initial encounter Acute deep vein thrombosis (DVT) of calf muscle vein of left lower extremity (H) CT CHEST/ABDOMEN/PELVIS W AONANGURMzdsqdg51/29/2025 9:50 AM CDT Prostate cancer (H) 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 ComponentValueRef RangeTest MethodAnalysis TimePerformed AtPathologist Signature WBC Count9.304.00 - 11.00 10e3/uL02/18/2025 10:13 AM CSTLV LABORATORYRBC Count 4.37(L)4.40 - 5.90 10e6/uL02/18/2025 10:13 AM CSTLV UMBCYHIRAWZbvcbkvced00.413.3 - 17.7 g/dL02/18/2025 10:13 AM CSTLV TWAEBVIQEYJbrsqampun19.140.0 - 53.0 % 02/18/2025 10:13 AM CSTLV KOGEFNRXPWQOM85.678.0 - 100.0 fL02/18/2025 10:13 AM CSTLV SLTMTIGDEMXAO74.026.5 - 33.0 pg02/18/2025 10:13 AM CSTLV LABORATORYMCHC 33.431.5 - 36.5 g/dL02/18/2025 10:13 AM CSTLV NSUFTDMXDRCLL83.810.0 - 15.0 % 02/18/2025 10:13 AM CSTLV LABORATORYPlatelet Uyayt548(L)150 - 450 10e3/uL 02/18/2025 10:13 AM CSTLV LABORATORY% Yojwtgnyeuz14.3%02/18/2025 10:13 AM CSTLV LABORATORY% Vgmmpozdxnn21.6%02/18/2025 10:13 AM CSTLV LABORATORY% Vpajiftiv54.5% 02/18/2025 10:13 AM CSTLV LABORATORY% Eosinophils2.0%02/18/2025 10:13 [...] Time Received TimeBloodBLOOD SPECIMEN / UnknownVenipuncture / Ynwzvuu5702/18/2025 10:04 AM CST02/18/2025 10:04 AM CABINETMAKER MAINTENANCE Narrative Authorizing ProviderResult TypeResult StatusGautam Ubaldo Rojas MDLAB - BLOOD ORDERABLESFinal ResultPerforming OrganizationAddressCity/State/ZIP CodePhone Number LABORATORY [facility] [address] [facility] Lab (no room number, 1st floor of clinic) [place] [address], [facility] * (ABNORMAL) Testosterone total (02/18/2025 10:04 AM CABINETMAKER MAINTENANCE) Only the most recent of2 resultswithin the time period is included. ComponentValueRef RangeTest MethodAnalysis TimePerformed AtPathologist Signature Testosterone Total<2(L)240 - 950 ng/dL12/ 11:01 AM CSTUM SPECIAL DRUG/BGENComment: MALE: 0 [...] Unknown 02/18/2025 10:04 AM CST02/18/2025 10:04 AM CABINETMAKER MAINTENANCE Narrative [facility] - 02/21/2025 11:01 AM CABINETMAKER MAINTENANCE This test was developed and its performance characteristics determined by the [facility], Special Chemistry Laboratory. It has not been cleared or approved by the FDA. The laboratory is regulated under CLIA as qualified to perform high-complexity testing. This test is used for clinical purposes. It should not be regarded as investigational or for research. Authorizing ProviderResult TypeResult StatusGautakimani Rojas MDLAB - BLOOD ORDERABLESFinal ResultPerforming OrganizationAddressCity/State/ZIP CodePhone Number [facility] [address] [facility], Room [address] [phone] * PSA tumor marker (02/18/2025 10:04 AM CABINETMAKER MAINTENANCE) Only the most recent of2 resultswithin the time period is included. ComponentValueRef RangeTest MethodAnalysis TimePerformed AtPathologist Signature PSA Monitoring0.07<=7.20 ng/mL02/19/2025 4:42 AM CSTUU LABORATORYSpecimen (Source)Anatomical Location / LateralityCollection Method / VolumeCollection TimeReceived TimeBloodBLOOD SPECIMEN / UnknownVenipuncture / Pqshcya8302/18/2025 10:04 AM CST02/18/2025 10:04 AM CABINETMAKER MAINTENANCE Narrative [facility] - 02/19/2025 4:42 AM CABINETMAKER MAINTENANCE This result is obtained using the Dwayne [...] 2016;195(2):330-336. doi:10.1016/j.juro.2015.08.080 Authorizing ProviderResult TypeResult StatusChristiano Rojas WILAB - BLOOD ORDERABLESFinal ResultPerforming OrganizationAddressCity/State/ZIP CodePhone Number [facility] [address] [facility], Room [address] * Phosphorus (02/18/2025 10:04 AM CABINETMAKER MAINTENANCE) Only the most recent of2 resultswithin the time period is included. ComponentValueRef RangeTest MethodAnalysis TimePerformed AtPathologist Signature Phosphorus2.62.5 - 4.5 mg/dL02/19/2025 3:49 AM CSTUU LABORATORYSpecimen (Source) Anatomical Location / LateralityCollection Method / VolumeCollection Time Received TimeBloodBLOOD SPECIMEN / UnknownVenipuncture / Qocrnvc1502/18/2025 10:04 AM CST02/18/2025 10:04 AM CABINETMAKER MAINTENANCE Narrative Authorizing ProviderResult TypeResult StatusChristiano Rojas MDHEARTLAND [facility] - BLOOD ORDERABLESFinal ResultPerforming OrganizationAddressCity/State/ZIP CodePhone Number LABORATORY [facility] Core Lab [address] [facility], Room [address] * (ABNORMAL) D dimer quantitative (02/18/2025 10:04 AM CABINETMAKER MAINTENANCE) Only the most recent of2 resultswithin the time period is included. ComponentValueRef RangeTest MethodAnalysis TimePerformed AtPathologist Signature D-Dimer Quantitative0.82(H)0.00 - 0.50 ug/mL FEU104/21/2024 1:32 PM CSTOX LABORATORYSpecimen (Source)Anatomical Location / LateralityCollection Method / VolumeCollection TimeReceived TimeBloodBLOOD SPECIMEN / UnknownVenipuncture / Rcsphjx8802/18/2025 10:04 AM CST02/18/2025 10:04 AM CABINETMAKER MAINTENANCE Narrative [facility] - 02/18/2025 1:32 PM CABINETMAKER MAINTENANCE This D-dimer assay is intended for use [...] pulmonary embolism: The ADJUST-PE Study. JOSE ARMANDO 2014;311:7323-8804.; HJ Kevin et al. Diagnostic accuracy of conventional or age adjusted D-dimer cutoff values in older patients with suspected venous thromboembolism. Systemic review and meta- analysis. BMJ 2013:346:f2492. Authorizing ProviderResult TypeResult StatusGautam Ubaldo Rojas MDLAB - BLOOD ORDERABLESFinal ResultPerforming OrganizationAddressCity/State/ZIP CodePhone Number LABORATORY [facility] [address] Lab (no room number, 1st floor of clinic) [place] [address], [facility] * (ABNORMAL) Comprehensive metabolic panel (02/18/2025 10:04 AM CABINETMAKER MAINTENANCE) Only the most recent of2 resultswithin the time period is included. ComponentValueRef RangeTest MethodAnalysis TimePerformed AtPathologist Signature Rncdjl887181 - 145 mmol/L104/22/2024 3:49 AM CSTUU LABORATORYPotassium4.53.4 - 5.3 mmol/L104/22/2024 3:49 AM CSTUU LABORATORYCarbon Dioxide (CO2)2922 - 29 mmol/L104/22/2024 3:49 AM CSTUU LABORATORYAnion Xja354 - 15 mmol/L104/22/2024 3:49 AM CSTUU LABORATORYUrea Kreawpta44.58.0 - 23.0 mg/dL02/19/2025 3:49 AM CSTUU LABORATORYCreatinine1.53(H)0.67 - 1.17 mg/dL02/19/2025 3:49 AM CSTUU LABORATORY GFR Gwgjsfkq12(L)>60 mL/min/1.77t94202/19/2025 3:49 AM CSTUU LABORATORYComment: eGFR calculated using 2020 CKD-EPI equation.Calcium9.38.8 - 10.4 mg/dL02/19/2025 3:49 AM CSTUU BNPUVIWDWBKzcedqby46641 - 107 mmol/L104/22/2024 3:49 AM [facility] TDYSXDBJNSKuxoraz314(H)70 - 99 mg/dL02/19/2025 3:49 AM CSTUU LABORATORYAlkaline Egzyjkznlbi08960 - 150 U/L104/22/2024 3:49 AM CSTUU VXXMNUZSQVMRW939 - 45 U/L 02/19/2025 3:49 AM CSTUU EEAWNCTCSUHMN420 - 70 U/L104/22/2024 3:49 AM [facility] LABORATORYProtein Total6.46.4 - 8.3 g/dL02/19/2025 3:49 AM [facility] Albumin3.3(L)3.5 - 5.2 g/dL02/19/2025 3:49 AM CSTUU LABORATORYBilirubin Total1.5 (H)<=1.2 mg/dL02/19/2025 3:49 AM [facility] LABORATORYSpecimen (Source)Anatomical Location / LateralityCollection Method / VolumeCollection TimeReceived TimeBlood BLOOD SPECIMEN / UnknownVenipuncture / Geqwflf7102/18/2025 10:04 AM CST02/18/2025 10:04 AM [facility] Narrative Authorizing ProviderResult TypeResult StatusGagenarom Ubaldo Rojas MDLAB - BLOOD ORDERABLESFinal ResultPerforming OrganizationAddressCity/State/ZIP CodePhone Number [facility] LABORATORY [facility] [address] [facility] [address] [facility], [address] [place] [address], [facility] * NM Bone Scan Whole Body [...] EXAM: NM BONE SCAN WHOLE BODY LOCATION: [facility] DATE: 12/30/2024 INDICATION: Restaging ?? bony metastasis. [...] EXAM: NM BONE SCAN WHOLE BODY LOCATION: [facility] DATE: 12/30/2024 INDICATION: Restaging bony metastasis. Metastatic [...] a baseline forfuture follow-up. Authorizing ProviderResult TypeResult StatusGautam Ubaldo Rojas MDIMG NM ORDERABLESFinal Result * CT Chest/Abdomen/Pelvis w Contrast [...] CDT EXAM: CT CHEST/ABDOMEN/PELVIS W CONTRAST LOCATION: [facility] DATE: 12/30/2024 INDICATION: Recently diagnosed (Mar 2024) [...] 12/30/2024 EXAM: CT CHEST/ABDOMEN/PELVIS W CONTRAST LOCATION: [facility] DATE: 12/30/2024 INDICATION: Recently diagnosed (Mar 2024) [...] nonacute findings as above. Authorizing ProviderResult TypeResult Alonso Conner [facility] CT ORDERABLESFinal Result * (ABNORMAL) Creatinine POCT (12/30/2024 9:23 AM CDT)ComponentValueRef RangeTest MethodAnalysis TimePerformed AtPathologist SignatureCreatinine POCT1.4(H)0.7 - 1.2 mg/dL12/30/2024 9:26 AM CDTRH LABORATORY POCGFR, ESTIMATED POCT48(L)>60 mL/min/1.99d93512/30/2024 9:26 AM CDTRH LABORATORY POCComment:eGFR calculated using 2020 CKD-EPI equation.Specimen (Source)Anatomical Location / Laterality Collection Method / VolumeCollection TimeReceived TimeBloodBLOOD SPECIMEN / Hpeboxb6912/30/2024 9:23 AM CDT1 9:26 AM CDT Narrative Authorizing ProviderResult TypeResult StatusChristiano TIDWELL POCTFinal ResultPerforming OrganizationAddressCity/State/ZIP CodePhone Number LABORATORY [facility] [address] (1st floor, no room number) [place] [address] * TSH with free T4 reflex (2024 11:57 AM CDT)ComponentValueRef RangeTest MethodAnalysis TimePerformed AtPathologist SignatureTSH1.320.30 - 4.20 uIU/mL 2024 10:41 PM CDTUU LABORATORYSpecimen (Source)Anatomical Location / LateralityCollection Method / VolumeCollection TimeReceived TimeBloodBLOOD SPECIMEN / UnknownVenipuncture / Icorymp1411/19/2024 11:57 AM CDT2024 11:57 AM CDT Narrative Authorizing ProviderResult TypeResult StatusRufina DOBSONCLAB - BLOOD ORDERABLESFinal ResultPerforming OrganizationAddressCity/State/ZIP CodePhone Number [facility] LABORATORY [facility] [address] [facility], [address] [place] [address] * (ABNORMAL) Lipid panel reflex to direct LDL Non-fasting (10/06/2024 10:48 AM CDT)ComponentValueRef RangeTest MethodAnalysis TimePerformed AtPathologist PhcgmpokjAaeuihrihnw511(H)<200 mg/dL10/07/2024 3:14 AM CDTUU LABORATORY Zkqmdajciusmi874(H)<150 mg/dL10/07/2024 3:14 AM CDTUU LABORATORYDirect Measure HDL74>=40 mg/dL10/07/2024 3:14 AM CDTUU LABORATORYLDL Cholesterol Calculated 102(H)<100 mg/dL10/07/2024 3:14 AM CDTUU LABORATORYComment:LDL calculated using the Friedewald equation.Non HDL Hxndxknaekb249(H)<130 mg/dL10/07/2024 3:14 AM CDTUU LABORATORYPatient Fasting > 8hrs?No10/07/2024 3:14 AM CDTUU LABORATORYSpecimen (Source)Anatomical Location / LateralityCollection Method / VolumeCollection TimeReceived TimeBloodBLOOD SPECIMEN / UnknownVenipuncture / Bsdfwwb1710/06/2024 10:48 AM CDT10/06/2024 10:48 AM CDT Narrative [...] 220 mg/dL Authorizing ProviderResult TypeResult StatusLaura Eleonora HURT-VIKTOR - BLOOD ORDERABLESFinal ResultPerforming OrganizationAddressCity/State/ZIP CodePhone Number [facility] LABORATORY [facility] [address] [facility], [address] [place] [address] from Last 3 Months or Most Recently Relevant to Health Maintenance Insurance Advance Directives For more information, please contact: [phone] * No CPR- Do NOT Intubate (Latest Code Status on File) Date ActivatedDate InactivatedComments03/06/2024 6:33 AM03/10/2024 4:52 PMNO basic or advanced [...] decision maker Care Teams Team MemberRelationshipSpecialtyStart [place] [address] [place] [address] PCP - GeneralFaohly Yoyphwho81/18/25 Carolyn Bettencourt PA-C Physician AssistantHematology & Oncology03/11/24 Christiano Rojas MD [address] [facility] [address] [place], [place] [address] MDHematology & Oncology03/11/24 Hannah Rosa PA-C [address] [place], [place] 93[address] Assigned PCP03/26/24 Rupert Thorpe MD 420 [facility] [address] [place], [place] [address] Assigned Surgical Provider04/26/24 Nikita Saini MD [address] [place] [address] MDCardiovascular Disease06/04/24 Pepe Sierra PA-C [address] [place] [address] Assigned Heart and Vascular Provider08/24/24 Cookie Shay, RN Specialty Care CoordinatorHematology & Oncology10/15/24 Christiano Rojas MD [address] [place] [address] 845885 Assigned Cancer Care Evtrvcat59/23/25
--- OUTSIDE RECORDS SUMMARY | 2025-02-28 02:18 | XMS_ITS ---
Author Organization [facility] Address [address] [place] [address] Care Team Providers Care Jd Edwards Name Role Phone Amrik Carolyn LawsonC Unavailable BobChristiano espinoza MD Unavailable [phone] Hannah Rosa PA-C Unavailable [phone] Rupert Thorpe MD Unavailable Nikita Saini MD Unavailable [phone] Pepe Sierra PA-C Unavailable [phone] Cookie Shay RN Unavailable Unavailable BobChristiano espinoza MD Unavailable [phone] Ruben Marcano DO Primary Care Provider [phone] Active Problems ProblemNoted DateDiagnosed DateMalignant neoplasm of [...] of calf muscle vein of left lower yauchjlxg08/14/2025Prostate malvcb5803/06/2024 Pathologic vertebral vkzyiflw54/03/2025Paroxysmal atrial mhazwybjftun12/03/2025 Chronic xkvfwgxwymsuwzk40/03/2025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, initial hiyioebkq84/03/2025History of alcohol abuse Current Treatment and Therapy [...] found. Resolved Problems ProblemNoted DateDiagnosed DateResolved DateAcute mjdijyycoarly93/22/2021 03/17/20245081Jywcsdztfatbmbstixi11/22/202101/14/0073Ybrkjgtneonnes49/21/2021 03/17/2024 Overview (08/23/2020): Added automatically from request for surgery [id number]
--- OUTSIDE RECORDS SUMMARY | 2025-02-28 02:19 | XMS_ITS | Clinical Summary ---
Author Organization [facility] Address [address], [place] [address] Care Team Providers Care Travel Cota Name Role Phone Unassigned, Provider Primary Care Provider Unava ilable Source Comments You are receiving this document as you are listed as the primary care provider,follow-up provider, or the patient has been referred to you for consultation.This is in compliance with the Medicare andM[facility] Hospitalc[facility] EHR Incentive Program,which states Providers who transition their patient to another setting of careor provider of care or refers their patient to another provider of care shouldprovide summary care record for each transition of care or referral. [place] Allergies No known active allergies Medications No known medications Active Problems ProblemNoted DateDiagnosed DateEssential iemetmfdjmee49/07/2003 Overview (10/24/2016): Hypertension Tzwoxe4108/08/2002 Overview (10/24/2016): Asthma NOS Esophageal fhyscl3608/08/2002 Overview (10/24/2016): Gastroesophageal Reflux Disease Pgionligihyywv51/07/2003 Immunizations ImmunizationAdministration DatesNext DueTd05/11/1996 Social History Tobacco UseTypesPacks/DayYears UsedDateSmoking Tobacco: NeverSmokeless Tobacco: Never Tobacco Cessation:Counseling Given: Not Answered Sex and Gender InformationValueDate RecordedSex Assigned at BirthNot on file Legal AthPnya29/10/2012 4:24 AM CDTGender IdentityNot on fileSexual Orientation Not on file Last Filed Vital Signs Vital SignReadingTime TakenCommentsBlood Tlnaazpa020/5908 8:16 AM CDT Ofcwi9467 8:16 AM JTSSmgieravkrc07.4 ??C (97.6 ??F)10/07/2023 8:16 AM CDTRespiratory Tclb660010/07/2023 8:16 AM CDTOxygen Wkppaoarup12%10/07/2023 8:16 AM CDTInhaled Oxygen Concentration--Fvfouu42.8 kg (176 lb)02/27/2024 10:25 AM CSTHeight--Body Mass Index-- Plan of Treatment Health MaintenanceDue DateLast DoneCommentsMedicare Annual Wellness Visit 1936RSV Vaccine (1 - 1-dose 75+ series)11/20/2011Zoster/Shingles Vaccine (2 of 3)COVID-19 Vaccine ( season)2024 12/13/2023, 01/17/2023, 11/24/2021, Additional history existsInfluenza Vaccine (#1)/01/2024, 12/25/2022, 12/21/2021, Additional history exists DTaP/Tdap/Td Vaccine (2 - Tdap)/, 09/01/2006, 05/11/1996 Pneumococcal Vaccine 50+ EbnTliymulbt20/30/2015, 01/18/2010, 03/04/2002HepA VaccineAged OutNo longer eligible based [...] Ocampo TypeRelation to PatientDate of BirthPhone Billing AddressPersonal/Vaklul8510/[birth year][address] [place] [address] Care Teams Team MemberRelationshipSpecialtyStart DateEnd Date Unassigned, Provider [address] [place] [address] PCP - Ektxhxw31/4/00
--- OUTSIDE RECORDS SUMMARY | 2025-02-28 02:19 | XMS_ITS | Clinical Summary ---
Author Organization [facility] Address [address] [place] [address] Care Team Providers Care Scheduling Analyst Name Role Phone Unavailable Primary Care Provider Unavailabl e Social History Tobacco UseTypesPacks/DayYears UsedDateSmoking Tobacco: Never AssessedDomestic Violence ScreenAnswerDate RecordedPhysical Abuse DxpjGqepyuy26/18/2024Verbal Abuse RdbhOtidhba05/18/2024Sex and Gender InformationValueDate RecordedSex Assigned at BirthNot on fileLegal XllAbqu8003/21/2020 9:51 AM MSTGender Identity Not on fileSexual OrientationNot on file Plan of Treatment Health MaintenanceDue DateLast DoneCommentsPneumococcal 50+ (1 of 1 - PCV) 1986Zoster (1 of 2)1986Screening for Future Fall Risk2001RSV Vaccines (1 - 1-dose 75+ series)11/20/2011Depression Vruhuvxal49/01/2025 Influenza (#1)2024OVID-19 Vaccine ( - 2023- season)2024Hepatitis AAged OutNo longer eligible based on patient's age to complete this topic Hepatitis BAged OutNo longer eligible based on patient's age to complete this topic Insurance
--- OUTSIDE RECORDS SUMMARY | 2025-02-28 02:19 | XMS_ITS | Encounter Summary ---
Author Organization [facility] Address [address] [place] [address] Care Team Providers Care Powerhouse Oiler Name Role Phone Amrik Carolyn Lawson PA-C Unavailable Christiano Rojas MD Unavailable [phone] Hannah RosaC Unavailable [phone] Rupert Thorpe MD Unavailable Nikita Saini MD Unavailable [phone] Pepe SierraC Unavailable [phone] Cookie Shay RN Unavailable Unavailable BobChristiano espinoza MD Unavailable [phone] Ruben Marcano DO Primary Care Provider [phone] Encounter Details DateTypeDepartmentCare Team (Latest Contact Info)Pqdajdluvul62/18/2025Travel Social History Tobacco UseTypesPacks/DayYears UsedDateSmoking Tobacco: FormerSmokeless Tobacco: Never Comments:quit age 28 Alcohol UseStandard Drinks/WeekCommentsNot Currently0 (1 standard drink = 0.6 oz pure alcohol)stopped ETOH 2015PHQ-2AnswerDate RecordedPHQ-2 Wgumg884 Adolescent EducationAnswerDate RecordedGetting School Help NeededNot on [...] ex-partner?Yes03/08/2024Sex and Gender InformationValueDate RecordedSex Assigned at VnwxrAiwl18/20/2025 10:09 AM CSTLegal TdoKwnu82/04/2012 4:01 AM CSTGender ScfbwiebRkbo22/20/2025 10:08 AM CSTSexual HgxhcralbgtAbhybhmi08/20/2025 10:08 AM CSTOccupationIndustry Job Start DateJob End DateEncryption communication telephoneNot on fileNot on fileNot on filedocumented as of this encounter Plan of Treatment DateTypeDepartmentCare Team (Latest Contact Info)Cieocwhlfcz73/29/2025 2:00 PM CSTOffice Visit [facility] [address] [place] [address] [place] [address] [place] [address] 04/08/2025 10:15 AM CSTLab [facility] [address] [place] [address] 04/09/2025 11:00 AM CSTOncology Visit [address] [facility] [place] [address] Christiano Rojas MD [address] [place] [address] 04/09/2025 12:30 PM CSTAllied Health/Nurse Visit [address] [place] [address] [facility] [place] [address] Christiano Rojas MD [address] [place] [address] 04/20/2025 9:20 AM CSTOffice Visit [facility] Heart [facility] [address] [facility] [address] [place] [address] Pepe Sierra PA-C [address] [place], [place] [address] documented as of this encounter Goals GoalPatient [...] not send urgent or symptomatic messages through [employer]. I will contact scheduling to arrange or make changes in my appointments. documented as of this encounter Visit Diagnoses Not on filedocumented in this encounter Additional Health Concerns AssessmentNoted TimePHQ-9 Depression Total Score: 6003/17/2024 12:22 PM [employer] documented as of this encounter Care Teams Team MemberRelationshipSpecialtyStart [place] [address] [place] [address] PCP - GeneralFamily Chafqlag87/18/25 Carolyn Bettencourt PA-C Physician AssistantHematology & Oncology03/11/24 Christiano Rojas MD 420 [facility] 480 [place], [place] [address] MDHematology & Oncology03/11/24 Hannah Rosa PA-C [address] [place] [address] [phone] Assigned PCP03/26/24 Rupert Thorpe MD 420 [facility] 394 [place], [place] [address] Assigned Surgical Provider04/26/24 Nikita Saini MD [address] [place], [place] [address] MDCardiovascular Disease06/04/24 Pepe Sierra PA-C [address] [place] [address] Assigned Heart and Vascular Provider08/24/24 Cookie Shay, RN Specialty Care CoordinatorHematology & Oncology10/15/24 Christiano Rojas MD [address] [place] [address] Assigned Cancer Care Uncjyiqv88/23/25documented as of this encounter
--- OUTSIDE RECORDS SUMMARY | 2025-02-28 02:19 | XMS_ITS | Encounter Summary ---
Author Organization [facility] Address [address] [place] [address] Care Team Providers Care Joiner Name Role Phone Amrik Carolyn Lawson PA-C Unavailable Christiano Rojas MD Unavailable [phone] Hannah RosaC Unavailable [phone] Rupert Thorpe MD Unavailable Nikita Saini MD Unavailable [phone] Pepe SierraC Unavailable [phone] Cookie Shay RN Unavailable Unavailable BobChristiano espinoza MD Unavailable [phone] Ruben Marcano DO Primary Care Provider [phone] Encounter Details DateTypeDepartmentCare Team (Latest Contact Info)Akdbpvhbjhw86/27/2025Travel Social History Tobacco UseTypesPacks/DayYears UsedDateSmoking Tobacco: FormerSmokeless Tobacco: Never Comments:quit age 28 Alcohol UseStandard Drinks/WeekCommentsNot Currently0 (1 standard drink = 0.6 oz pure alcohol)stopped ETOH 2015PHQ-2AnswerDate RecordedPHQ-2 Skntv562 Adolescent EducationAnswerDate RecordedGetting School Help NeededNot on [...] ex-partner?Yes03/08/2024Sex and Gender InformationValueDate RecordedSex Assigned at XounkKnwq17/20/2025 10:09 AM CSTLegal OgtJrxz80/04/2012 4:01 AM CSTGender TpjhwnheSncf33/20/2025 10:08 AM CSTSexual TdvozlrysjxYqkbxedm11/20/2025 10:08 AM CSTOccupationIndustry Job Start DateJob End DateEncryption communication telephoneNot on fileNot on fileNot on filedocumented as of this encounter Plan of Treatment DateTypeDepartmentCare Team (Latest Contact Info)Hdzfjrsunxf73/29/2025 2:[address] [facility] [address] [place] [address] [place] [address] [place] [address] 04/08/2025 10:[address] [facility] [address] [place] [address] 04/09/2025 11:00 AM CSTOncology Visit [address] [address] [facility] [place] [address] Christiano Rojas MD [address] [place] [address] 04/09/2025 12:30 PM CSTAllied Health/Nurse Visit [address] [facility] [place] [address] Christiano Rojas MD [address] [place] [address] 04/20/2025 9:20 AM CSTOffice Visit [facility] Heart [facility] [address] [facility] [address] [place] [address] Pepe Sierra PA-C [address] [place], [place] [address] documented as of this encounter Goals GoalPatient [...] not send urgent or symptomatic messages through [employer]. I will contact scheduling to arrange or make changes in my appointments. documented as of this encounter Visit Diagnoses Not on filedocumented in this encounter Additional Health Concerns AssessmentNoted TimePHQ-9 Depression Total Score: 6003/17/2024 12:22 PM [employer]SIDE PLANT SUPERVISOR documented as of this encounter Care Teams Team MemberRelationshipSpecialtyStart [place] [address] [place] [address] PCP - GeneralFamily Zdwcjypz43/18/25 Carolyn Bettencourt PA-C Physician AssistantHematology & Oncology03/11/24 Christiano Rojas MD 420 [facility] 480 [place], [place] [address] MDHematology & Oncology03/11/24 Hannah Rosa PA-C [address] [place] [address] [id number] Assigned PCP03/26/24 Rupert Thorpe MD 420 [facility] 394 [place], [place] [address]235 Assigned Surgical Provider04/26/24 Nikita Saini MD [address] [place], [place] [address] MDCardiovascular Disease06/04/24 Pepe Sierra PA-C [address] [place] [address] Assigned Heart and Vascular Provider08/24/24 Cookie Shay, RN Specialty Care CoordinatorHematology & Oncology10/15/24 Christiano Rojas MD [address] [place] [address] Assigned Cancer Care Tzazzucw01/23/25documented as of this encounter
--- OUTSIDE RECORDS SUMMARY | 2025-02-28 02:19 | XMS_ITS | Encounter Summary ---
Author Organization [facility] Address [address] [place] [address] Care Team Providers Care Viticulturist Name Role Phone Carolyn Bettencourt PA-C Unavailable Christiano Rojas MD Unavailable [phone] Hannah Rosa PA-C Primary Care Provider + Hannah Rosa PA-C Unavailable [phone] Rupert Thorpe MD Unavailable Nikita Saini MD Unavailable [phone] Pepe Sierra PA-C Unavailable [phone] Cookie Shay RN Unavailable Unavailable Carolyn Bettencourt PA-C Unavailable Reason for Visit * ReasonOnset DateCommentsOral Chemotherapy Fgaraisgic71/13/2025Zytiga Encounter Details DateTypeDepartmentCare Team (Latest Contact Info)Lzgqzbkylxz16/13/2025Telephone [facility] [address] [place] [address] Jennifer Saenz [facility] Oral Chemotherapy Management (Zytiga/) Social History Tobacco UseTypesPacks/DayYears UsedDateSmoking Tobacco: FormerSmokeless Tobacco: Never Comments:quit age 28 Alcohol UseStandard Drinks/WeekCommentsNot Currently0 (1 standard drink = 0.6 oz pure alcohol)stopped ETOH 2015PHQ-2AnswerDate RecordedPHQ-2 Fsgxw133 Adolescent EducationAnswerDate RecordedGetting School Help NeededNot on [...] ex-partner?Yes03/08/2024Sex and Gender InformationValueDate RecordedSex Assigned at IovkuDqpo34/20/2025 10:09 AM CSTLegal WmvNkhd62/04/2012 4:01 AM CSTGender FimjmryuYbls83/20/2025 10:08 AM CSTSexual KtajcxvbkniHxokshii55/20/2025 10:08 AM CSTOccupationIndustry Job Start DateJob End [...] Betzaida Saenz PharmD Oral Chemotherapy Monitoring Program [facility] [phone] OIDERY SPECIALIST documented in this encounter Plan of Treatment DateTypeDepartmentCare Team (Latest Contact Info)Lzaimjupbhm59/29/2025 2:00 PM CSTOffice Visit [address] [address] Ruben Marcano [address] [place] [address] 04/08/2025 10:15 AM CSTLab [facility] [address] [place] [address] 04/09/2025 11:00 AM CSTOncology Visit [address] 200 [facility] [place] [address] Christiano Rojas MD [address] [place] [address] 04/09/2025 12:30 PM CSTAllied Health/Nurse Visit [address] [facility] [place] [address] Christiano Rojas MD 420 [facility] 480 [place] [address] 04/20/2025 9:20 AM CSTOffice Visit [facility] [address] [facility] [address] [place] [phone] Pepe Sierra PA-C [address] [place] [address] documented as of this encounter Goals GoalPatient [...] not send urgent or symptomatic messages through [employer]. I will contact scheduling to arrange or make changes in my appointments. documented as of this encounter Visit Diagnoses Not on filedocumented in this encounter Additional Health Concerns AssessmentNoted TimePHQ-9 Depression Total Score: 6003/17/2024 12:22 PM EMBROIDERY SPECIALIST documented as of this encounter Care Teams Team MemberRelationshipSpecialtyStart DateEnd Date Hannah Rosa PA-C [address] [place] [address] PCP - GeneralFamily Medicine03/18/2511 Carolyn Bettencourt PA-C Physician AssistantHematology & Oncology03/11/24 Christiano Rojas MD 420 [facility] [address] [place], [place] [address] Hematology & Oncology03/11/24 Hannah Rosa PA-C [address] [place], [place] [address] Assigned PCP03/26/24 Rupert Thorpe MD 420 [facility] 394 [place], [place] [address] Assigned Surgical Provider04/26/24 Nikita Saini MD [address] [place], [place] [address] MDCardiovascular Disease06/04/24 Pepe Sierra PA-C [address] [place], [place] [address] Assigned Heart and Vascular Provider08/24/24 Cookie Shay, RN Specialty Care CoordinatorHematology & Oncology10/15/24 Carolyn Bettencourt PA-C [address] [place], [place] [address] Assigned Cancer Care Berejuno17/23/2511documented as of this encounter
--- OUTSIDE RECORDS SUMMARY | 2025-02-28 02:19 | XMS_ITS | Encounter Summary ---
Author Organization [facility] Address [address] [place] [address] Care Team Providers Care Warehouse Worker Name Role Phone Carolyn BettencourtC Unavailable Christiano Rojas MD Unavailable [phone] Hannah RosaC Primary Care Provider + Hannah RosaC Unavailable [phone] Rupert Thorpe MD Unavailable Nikita Saini MD Unavailable [phone] Pepe SierraC Unavailable [phone] Cookie Shay RN Unavailable Unavailable BobChristiano espinoza MD Unavailable [phone] Reason for Visit * ReasonOnset DateCommentsPrior Auth - Eshkgygoyz18/17/2025Abiraterone 250mg PA Approval Encounter Details DateTypeDepartmentCare Team (Latest Contact Info)Skjjfhyzzlh93/17/2025Tebasimphone Danica [facility] [address] [place] [address] Ethel Angeles Prior Auth - Medication (Abiraterone 250mg PA Approval) Social History Tobacco UseTypesPacks/DayYears UsedDateSmoking Tobacco: FormerSmokeless Tobacco: Never Comments:quit age 28 Alcohol UseStandard Drinks/WeekCommentsNot Currently0 (1 standard drink = 0.6 oz pure alcohol)stopped ETOH 2014PHQ-2AnswerDate RecordedPHQ-2 Huhvu633 Adolescent EducationAnswerDate RecordedGetting School Help NeededNot on [...] ex-partner?Yes03/08/2024Sex and Gender InformationValueDate RecordedSex Assigned at XhtsxPymj25/20/2025 10:09 AM CSTLegal XnyWqbl79/04/2012 4:01 AM CSTGender PdfhbznyDwsn60/20/2025 10:08 AM CSTSexual QnfqoovazitRsncczsb79/20/2025 10:08 AM CSTOccupationIndustry Job Start DateJob End [...] Date: 03/03/2026 Approved Dose/Quantity: 120/30 Reference #: [id number] Insurance Company: [employer] - Which Pharmacy is filling the prescription: [facility] [place] [address] [place], [facility] Oncology Pharmacy Liaison II [email or web address] [phone] (phone [phone] (fax [employer] documented in this encounter Plan of Treatment DateTypeDepartmentCare Team (Latest Contact Info)Kdzewaumgqz78/29/2025 2:00 PM CSTOffice Visit [address] [phone] [place] [address] [place] [address] 04/08/2025 10:15 AM CSTLab [facility] [address] [place] [address] 04/09/2025 11:[address] [address] [place] 200 [facility] [place] [phone] Christiano Rojas MD 420 [facility] [address] [place] [address] 04/09/2025 12:30 PM CSTAllied Health/Nurse Visit [facility] [place] [address] [facility] [address] 200 [facility] [place] [place] [address] Christiano Rojas MD 420 [facility] [address] [place] [address] 04/20/2025 9:20 AM CSTOffice Visit [facility] [place] [address] [facility] [address] [place] [phone] Pepe Sierra PA-C [address] [place], [place] [address] documented as of this encounter Goals GoalPatient [...] not send urgent or symptomatic messages through [employer]. I will contact scheduling to arrange or make changes in my appointments. documented as of this encounter Visit Diagnoses Not on filedocumented in this encounter Additional Health Concerns AssessmentNoted TimePHQ-9 Depression Total Score: 6003/17/2024 12:22 PM MANAGER DISTRIBUTION documented as of this encounter Care Teams Team MemberRelationshipSpecialtyStart DateEnd Date Hannah Rosa PA-C [address] [place] [address] PCP - GeneralFamily Medicine03/18/2511 Carolyn Bettencourt PA-C Physician AssistantHematology & Oncology03/11/24 Christiano Rojas MD 420 [facility] [address] [place], [place] [address] MDHematology & Oncology03/11/24 Hannah Rosa PA-C [address] [place] [phone] Assigned PCP03/26/24 Rupert Thorpe MD 420 [facility] [address] [place], [place] [phone] Assigned Surgical Provider04/26/24 Nikita Saini MD [address] [place], [place] [address] MDCardiovascular Disease06/04/24 Pepe Sierra PA-C [address] [place], [place] [address] Assigned Heart and Vascular Provider08/24/24 Cookie Shay, RN Specialty Care CoordinatorHematology & Oncology10/15/24 Christiano Rojas MD 420 [facility] [address] [place] [address] Assigned Cancer Care Apgrleip47/23/25documented as of this encounter
--- OUTSIDE RECORDS SUMMARY | 2025-02-28 02:19 | XMS_ITS | Encounter Summary ---
Author Organization [place] Address [address] [place] [address]. [place] [address] Care Team Providers Care Venetian Blind Worker Name Role Phone Rowley Carolyn Lawson PA-C Unavailable Christiano Rojas MD Unavailable [phone] Hannah Rosa PA-C Primary Care Provider + Hannah Rosa PA-C Unavailable [phone] Rupert Thorpe MD Unavailable Nikita Saini MD Unavailable [phone] Pepe Sierra PA-C Unavailable [phone] Cookie Shay RN Unavailable Unavailable Christiano Rojas MD Unavailable [phone] Encounter Details DateTypeDepartmentCare Team (Latest Contact Info)Xmmobgycubr83/05/2025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, initial encounter Social History Tobacco UseTypesPacks/DayYears UsedDateSmoking Tobacco: FormerSmokeless Tobacco: Never Comments:quit age 28 Alcohol UseStandard Drinks/WeekCommentsNot Currently0 (1 standard drink = 0.6 oz pure alcohol)stopped ETOH 2015PHQ-2AnswerDate RecordedPHQ-2 Xspkz230 Adolescent EducationAnswerDate RecordedGetting School Help NeededNot on [...] in an abandoned building, in an overnight fpc, or couch-surfing.)Yes03/17/2024re you worried about losing your [...] ex-partner?Yes03/08/2024Sex and Gender InformationValueDate RecordedSex Assigned at JqugxGnjt61/20/2025 10:09 AM CSTLegal GxmPhlk84/04/2012 4:01 AM CSTGender HrvbzvvxQupa53/20/2025 10:08 AM CSTSexual XzzfoqldtsmGlfdgkbq65/20/2025 10:08 AM CSTOccupationIndustry Job Start DateJob End DateEncryption communication telephoneNot on fileNot on fileNot on filedocumented as of this encounter Plan of Treatment DateTypeDepartmentCare Team (Latest Contact Info)Ossjzidzqxj05/29/2025 2:00 PM CSTOffice Visit [facility] [address] [place] [address] [place] [address] [place] [address] 04/08/2025 10:15 AM CSTLab [facility] [address] [place] [phone] 04/09/2025 11:00 AM CSTOncology Visit [address] [place] 200 [facility] [place] [place] [address] Christiano Rojas MD [address] [address] 04/09/2025 12:30 PM CSTAllied Health/Nurse Visit [address] [place] 200 [facility] [place] [phone] Christiano Rojas MD [address] [address] 04/20/2025 9:[address] [address] [facility] [address] [place] [phone] Pepe Sierra PA-C [address] [place], [place] [address] documented as of this encounter Goals GoalPatient [...] not send urgent or symptomatic messages through [employer].. I will contact scheduling to arrange or make changes in my appointments. 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, initial encounter documented in this encounter Additional Health Concerns AssessmentNoted TimePHQ-9 Depression Total Score: 6003/17/2024 12:22 PM PLATE PREPARER documented as of this encounter Care Teams Team MemberRelationshipSpecialtyStart DateEnd Date Hannah Rosa PA-C [address] [place] [address] PCP - GeneralFamily Medicine03/18/2511 Carolyn Bettencourt PA-C Physician AssistantHematology & Oncology03/11/24 Christiano Rojas MD [address] [place] [address] MDHematology & Oncology03/11/24 Hannah Rosa PA-C [address] [place] [address] Assigned PCP03/26/24 Rupert Thorpe MD 420 [facility] [address] [place] [address] Assigned Surgical Provider04/26/24 Nikita Saini MD 516 [place] [address] MDCardiovascular Disease06/04/24 Pepe Sierra PA-C [address] [place], [place] [address] Assigned Heart and Vascular Provider08/24/24 Cookie Shay, RN Specialty Care CoordinatorHematology & Oncology10/15/24 Christiano Rojas MD 420 [facility] 480 [place], [place] [address] Assigned Cancer Care Teqmgbcp06/23/25documented as of this encounter
--- OUTSIDE RECORDS SUMMARY | 2025-02-28 02:19 | XMS_ITS | Encounter Summary ---
Author Organization [place] Address [address] [place] [address] Care Team Providers Care Stock Parts Fabricator Name Role Phone Carolyn Bettencourt PA-C Unavailable Christiano Rojas MD Unavailable [phone] Hannah Rosa PA-C Primary Care Provider + Hannah Rosa PA-C Unavailable [phone] Rupert Thorpe MD Unavailable Nikita Saini MD Unavailable [phone] Pepe Sierra PA-C Unavailable [phone] Cookie Shay RN Unavailable Unavailable BobChristiano espinoza MD Unavailable [phone] Encounter Details DateTypeDepartmentCare Team (Latest Contact Info)Egmdazjiyzv27/03/2025Telephone [address] [address] Hannah Rosa PA-C [address] [place] [address] Social History Tobacco UseTypesPacks/DayYears UsedDateSmoking Tobacco: FormerSmokeless Tobacco: Never Comments:quit age 28 Alcohol UseStandard Drinks/WeekCommentsNot Currently0 (1 standard drink = 0.6 oz pure alcohol)stopped ETOH 2014PHQ-2AnswerDate RecordedPHQ-2 Acfbz756 Adolescent EducationAnswerDate RecordedGetting School Help NeededNot on [...] in an abandoned building, in an overnight mcfp, or couch-surfing.)Yes03/17/2024re you worried about losing your [...] ex-partner?Yes03/08/2024Sex and Gender InformationValueDate RecordedSex Assigned at SrhciPdxk79/20/2025 10:09 AM CSTLegal EplKwgy25/04/2012 4:01 AM CSTGender PcegeujgTkgj30/20/2025 10:08 AM CSTSexual UcgfikbywmeDrqegzng24/20/2025 10:08 AM CSTOccupationIndustry Job Start DateJob End DateEncryption communication telephoneNot on fileNot on fileNot on filedocumented as of this encounter Miscellaneous Notes * Telephone Encounter - Jenna Dillon CMA - 02/03/2025 7:51 AM CST Patient Quality Outreach Patient is due for the following: Physical Preventive Adult Physical Action(s) Taken: Schedule a Adult Preventative Type of outreach: Sent [employer] message. Questions for provider review: None Jenna Dillon CMA Chart routed to None. HOOKER documented in this encounter Plan of Treatment DateTypeDepartmentCare Team (Latest Contact Info)Wfarboylteq39/29/2025 2:00 PM CSTOffice Visit [address] [address] [place] [address] [place] [address] 04/08/2025 10:15 AM CSTLab [facility] [address] [place] [address] 04/09/2025 11:00 AM CSTOncology Visit [address] [place] 200 [facility] [place] [address] Christiano Rojas MD [address] [place] [address] 04/09/2025 12:30 PM CSTAllied Health/Nurse Visit [address] [place] 200 [facility] [place] [address] Christiano Rojas MD [address] [place] [address] 04/20/2025 9:20 AM CSTOffice Visit [facility] [address] [facility] [address] [place] [address] Pepe Sierra PA-C [address] [place] [address] documented as of this encounter Goals GoalPatient [...] not send urgent or symptomatic messages through [employer]. I will contact scheduling to arrange or make changes in my appointments. documented as of this encounter Visit Diagnoses Not on filedocumented in this encounter Additional Health Concerns AssessmentNoted TimePHQ-9 Depression Total Score: 6003/17/2024 12:22 PM RUG HOOKER documented as of this encounter Care Teams Team MemberRelationshipSpecialtyStart DateEnd Date Hannah Rosa PA-C [address] [place] [address] PCP - GeneralFamily Medicine03/18/2511 Carolyn Bettencourt PA-C Physician AssistantHematology & Oncology03/11/24 Christiano Rojas MD [address] [place] [address] MDHematology & Oncology03/11/24 Hannah Rosa PA-C [address] [place], [place] [address] Assigned PCP03/26/24 Rupert Thorpe MD 420 [facility] [address] [place] [address] Assigned Surgical Provider04/26/24 Nikita Saini MD 516 [place], [place] [address] MDCardiovascular Disease06/04/24 Pepe Sierra PA-C [address] [place], [place] [address] Assigned Heart and Vascular Provider08/24/24 Cookie Shay, RN Specialty Care CoordinatorHematology & Oncology10/15/24 Christiano Rojas MD 420 [facility] [address] [place], [place] [address] Assigned Cancer Care Mhvvrozs41/23/25documented as of this encounter
--- OUTSIDE RECORDS SUMMARY | 2025-02-28 02:20 | XMS_ITS | Patient Health Record ---
Author Organization [facility] Address [address] [facility] [address] [place] [address] Care Team Providers Care Telemetry Rn Name Role Phone Sami Rodríguez Unavailable Tiffanie Talbot Unavailable Pradeep Michelle Unavailable [phone] Migration, Provider Unavailable Unavailable Allergies No Known Allergies Results Component Value Reference Range Notes CTA CHEST Reviewed date:05/08/2024 12:00:00 AM Interpretation: Performing Lab: Notes/Report: EKG Reviewed date:05/18/2024 12:00:00 AM Interpretation: Performing Lab: Notes/Report: Echo Reviewed date:05/10/2024 12:00:00 AM Interpretation: Performing Lab: Notes/Report: PET CT W/HEARTSEE Reviewed date: Interpretation: Performing Lab: Notes/Report: PET CT W/HEARTSEE 1 [id number] W/HEARTSEE [id number] CT W/HEARTSEE 3 [id number] Reviewed date: Interpretation: Performing Lab: Notes/Report: ELECTROCARDIOGRAM/ECG [id number] Reviewed date:06/04/2024 12:00:00 AM Interpretation: Performing Lab: [...] before or 2 hours afterfood ORAL*Reorder from [facility]ICIO for eRx and Interaction Alerts*06/04/2024 ActiveMidodrine HCl [...] 06/04/2024tiveOTC Supplements Oralonce a day Oral*Reorder from PROFICIO for eRx and Interaction Alerts*5ActiveMetoprolol Succinate ER [...] Notes Problem Malignant neoplasm o f prostate (692993355) Malignant neoplasm of prostate (C61) ActiveconfirmedProblemAtrial fibrillation (64690781)Unspecified atrial fibrillation (I48.91)ActiveconfirmedProblemAcute systolic heart failure (454700584)Acute systolic (congestive) heart failure (I50.21)Activeconfirmed ProblemHypotension (64320804)Other hypotension (I95.89)ActiveconfirmedProblem Embolism from thrombosis of vein of lower extremity (252336000)Acute embolism and thombos unsp deep vn unsp lower extremity (I82.409)Activeconfirmed Vital Signs Heart Rate 74 /min 06/08/2024 Height-cm172.72 cm06/08/20244533Nfwsgiap624 %06/08/2024lood pressure gpibxdquo13 mm Hg06/08/2024Weight-kg70.76 kg06/08/2024MI Zegcowdqzb29.72 %06/08/2024Height 68.00 in06/08/2024lood pressure kssensqg382 mm Hg06/08/20247462Vgokkl287.00 lbs 06/08/2024BMI23.72 kg/m206/08/2024 Encounters Encounter Location Date [...] and Pleural effusion, not elsewhere classified J90 [facility] [address] [address] [facility] [address] [place] [address] 05/18/2024 Sami Rodríguez Hyperlipidemia, unspecified E78.5 ; Acute systolic (congestive) heart failure I50.21 ; Other hypotension I95.89 ; Encounter for follow-up examination after completed treatment for conditions other than malignant neoplasm Z09 and Body mass index (BMI) 25.0-25.9, adult Z68.25 [facility] [address] [facility] [address] [place] [address] 05/26/2024 Tiffanie Talbot Acute systolic (congestive) heart failure I50.21 Migrated_Facilit y 0 0 05/27/2024 Provider Migration 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 ; Heart failure, unspecified I50.9 ; Acute kidney failure, unspecified N17.9 and Chronic atrial fibrillation, unspecified I48.[address] [address] 06/04/2024 Michelle Fernández Hyperlipidemia, unspecified E78.5 ; Essential (primary) hypertension I10 ; Unspecified atrial fibrillation I48.91 ; Unspecified systolic (congestive) heart failure I50.20 ; Other hypotension I95.89 ; long-term (current) use of anticoagulants Z79.01 and Body mass index (BMI) 24.0-24.9, adult Z68.[address] [address] 06/08/2024 Michelle Fernández Hyperlipidemia, unspecified E78.5 ; Essential (primary) hypertension I10 ; Unspecified atrial fibrillation I48.91 ; Unspecified systolic (congestive) heart failure I50.20 ; Acute systolic (congestive) heart failure I50.21 ; Other hypotension I95.89 ; long-term (current) use of anticoagulants Z79.01 and Body [...] Insured Coverage Start Date Coverage End Date [facility] Medicare [address] [place] [phone] [id number] Chaim Ocampo - patient is the insured[facility] Healthcare Options Medicare SupplementPO [address] [place] [id number], JeromeSelf - patient is the insured Medical (General) History Surgical History Surgery Date(Month/Year) Sx_Procedure : Cholecystectomy
== END 2025-02-27 14:04 | disposition home or self-care (01) ==
LOC: ED 02-28 02:16
PROVIDERS: Emergency Provider Emergency Medicine Emergency Medical Services
DX: S51.811A Laceration without foreign body of right forearm, initial encounter (principal); W22.8XXA Striking against or struck by other objects, initial encounter; Y93.89 Activity, other specified; Y92.512 Supermarket, store or market as the place of occurrence of the external cause
CPT/HCPCS: 12004; 90471; 90715; 99282; 99284